=== PATIENT | male | born 1965 | race Caucasian/White ===

== ENCOUNTER 2022-11-29 17:50 | Inpatient (IN) | payer OTHER, SELFPAY ==
--- OUTSIDE RECORDS SUMMARY | 2022-11-29 18:01 | XMS REPORT | Continuity of Care Document ---
:1965 Author Organization [facility] t Address [address] [place] [address] [place] [id number] Care Team Providers Name Role Phone Val Ji Attending Clinician Cj Snow Attending Clinician [phone] Chayito Vega Attending Clinician Ivanna Silver Attending Clinician Nakul Schulte Attending Clinician Berhane Deleon Attending Clinician Katie Oh Admitting Clinician Cj Snow Admitting Clinician [phone] Vito Amos II Admitting Clinician Ivanna Silver Admitting Clinician Nakul Schulte Admitting Clinician Problems Condition Condition Condition Status Onset Resolution Last Treating Co mments Source Name Details Category Date Date Treatment Clinician Date FALL, FALL, Diagnosis Active 2019-11-21 Mi moria HEAD/NECK HEAD/NECK 11-13 11:18:00 l PAIN PAIN 00:00: Yony Active 11/14/2019 [facility] HYPERTENSI HYPERTENS Diagnosis Active 2019-11-10 Memoria ON, CHEST ION, CHEST 11-07 08:39:00 l PAIN PAIN 00:00: Yony Active 11/08/2019 [facility] CHEST PAIN CHEST Diagnosis Active 2019-11-08 Memoria PAIN 11-07 23:01:00 l Active 00:00: [place] 11/08/[address] [place] [address],[facility], [facility] HBP/CHEST HBP/CHEST Diagnosis Active 2019-10-18 Memoria PAIN PAIN 8-15 22:46:00 l Active 00:00: [place] 10/18/2019 [facility] UNSTABLE UNSTABLE Diagnosis Active 2019-10-20 Memoria ANGINA ANGINA 8-15 18:03:00 l Active 00:00: Yony 10/18/2019 [facility] CP CP Active Diagnosis Active 2019-04-14 Memoria 04/11/2019 2- 13:28:00 l 00:00: [place] 00 PULMONARY PULMONARY Diagnosis Active [id number] Memoria EMBOLISM EMBOLISM 0- 01:36:00 l Active 00:00: [place] 12/24/2015 [facility] PULMONARY PULMONARY Diagnosis Active [id number] Memoria EMBOLI EMBOLI 0- 13:40:00 l Active 00:00: [place] 12/24/2015 00 [facility] BLOOD BLOOD Diagnosis Active 2015-12-03 Mem oria CLOTS CLOTS 12-02 21:35:00 l Active 00:00: [place] 12/03/2015 [facility] CHEST CHEST Diagnosis Active 2013-11-10 Mem oria PAIN/ PAIN/ 11-10 21:06:00 l DIZZINESS DIZZINESS 17:00: Herm yolanda Active 00 11/10/2013 [facility] L KNEE L KNEE Diagnosis Active 2017-04-01 Me moria PAIN PAIN 4-18 15:13:00 l Active 07:00: [place] 06/20/2001 [facility] FEVER FEVER Diagnosis Active 2017-04-01 Mem oria CHILLS CHILLS 8- 15:13:00 l Active 00:00: [place] 10/21/2000 00 [facility] Angioplast Angioplas Problem Resolve 2019-11-12 Memoria y of blood ty of d 21:17:27 l vessel blood Yony (procedure vessel ) (procedure ) Resolved Problem 11/12/2019 [facility], [facility], [facility] Deep Deep Problem Resolve 2019-11-12 Bryan bri venous venous d 21:17:27 l thrombosis thrombosis He yolanda (disorder) (disorder) Resolved Problem 11/12/2019 [facility], [facility] Hypertensi Hypertens Problem Resolve 2019-11-12 Memoria ve hillary d 21:17:27 l disorder, disorder, Herm yolanda systemic systemic arterial arterial (disorder) (disorder) Resolved Problem 11/12/2019 [facility], [facility], [facility] Pulmonary Pulmonary Problem Resolve 2019-11-12 Memoria embolism embolism d 21:17:27 l (disorder) (disorder) He rmann Resolved Problem 11/12/2019 [facility], [facility] Pneumonia Pneumonia Problem Resolve 2019-11-12 Memoria (disorder) (disorder) d 21:17:27 l Resolved [place] Problem 11/12/2019 [facility], [facility], [facility] 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 21:17:27 l erosis erosis [place] (disorder) (disorder) Active Problem 11/12/2019 [facility] Diabetes Diabetes Problem Active 2019-11-12 Memoria mellitus mellitus 21:17:27 l (disorder) (disorder) He rmann Active Problem 11/12/2019 [facility] Factor V Factor V Problem Active 2019-11-12 Memoria Leiden Leiden 21:17:27 l mutation mutation Jorge A n (disorder) (disorder) Active Problem 11/12/2019 [facility] History of History Problem Active 2019-11-12 Memoria - Deep of - Deep 21:17:27 l Vein Vein [place] Thrombosis Thrombosis (context-d (context-d ependent ependent category) category) Active Problem 11/12/2019 [facility] History of History Problem Active 2019-11-12 Memoria - of - 21:17:27 l pulmonary pulmonary Herm yolanda embolus embolus (context-d (context-d ependent ependent category) category) Active Problem 11/12/2019 [facility] History of History Problem Active 2019-11-12 Memoria insertion of 21:17:27 l of insertion Yony inferior of vena caval inferior filter vena caval (situation filter ) (situation ) Active Problem 11/12/2019 [facility] History of History Problem Active 2019-11-12 Memoria - of - 21:17:27 l myocardial myocardial He rmann infarction infarction (context-d (context-d ependent ependent category) category) Active Problem 11/12/2019 [facility] Morbid Morbid Problem Active 2019-11-12 Bryan bri obesity obesity 21:17:27 l (disorder) (disorder) He rmann Active Problem 11/12/2019 [facility] Diabetes Diabetes Problem Active 2019-11-12 Memoria mellitus mellitus 21:17:27 l type 2 type 2 Yony (disorder) (disorder) Active Problem 11/12/2019 [facility] ESSENTIAL ESSENTIAL Diagnosis Active 2019-11-10 Memoria (PRIMARY) (PRIMARY) 08:39:00 l HYPERTENSI HYPERTENSI He rmann ON ON Active [facility] CHEST CHEST Diagnosis Active 2019-11-10 Mem oria PAIN, PAIN, 08:39:00 l UNSPECIFIE UNSPECIFIE He rmann D D Active [facility], [facility] CHRONIC CHRONIC Diagnosis Active 2015-12-28 Memoria PULMONARY PULMONARY 13:40:00 l EMBOLISM EMBOLISM Jorge A n Active [facility] Allergies, Adverse Reactions, Alerts Allergy Allergy Status Severity Reaction(s) Onset Inactive Treating Comm ents Source Name Type Date Date Clinician No Known No Known Active Memori a Medicati Medicati l on on Yony Allergsasha Allergsasha s s Social History Social Habit Start Date Stop Date Quantity Comments Source Social History 2015-12-04 2015-12-04 [facility] ermann 04:36:12 04:36:12 Smoking Status Start Date Stop Date Source Social History [facility] Medications Ordered Filled Start Stop Current Ordering Indication Dosage Frequency Signature Comments Components Source Medication Medication Date Date Medication? Clinician (SIG) Name Name atorvastati No Notes: Bryan bri n 11-09 (Same As: l 02:00: Lipitor) Yony Melatonin 3 No Notes: Bryan bri MG Extended 11-09 (Same as: l Release 00:54: Melatonin) Herm yolanda Tablet 00 Saline No Notes: Memoria Flush 0.9% 11-08 (Same as: l 14:00: BD [place] Posiflush) Pradaxa No Notes: DO Memor ia 11-08 NOT break, l 14:00: chew or Yony open capsules for administra tion. Losartan No Notes: Memoria 11-08 (Same as: l 14:00: Cozaar) Yony 00 metoprolol No Notes: Memor ia tartrate 11-08 (Same as: l 14:00: Lopressor) Yony Morphine 2020-0 No Notes: Memoria 11-08 (Same l 05:23: as:MORPhin e Sulfate) Dextrose No 12.5 gm, Memor ia 50% Syringe 11-08 25 mL, l (D50W) 05:01: Route: [place] 00 IVP, Drug Form: INJ, Dosing Weight 136.364, kg, PRN, PRN Blood Glucose Results, Start date: 11/09/19 0:01:00 CDT, Duration: 30 day, Stop date: 12/09/19 0:00:00 CDT, 0 Glucagon 2020-0 No 1 mg, Memoria 11-08 Route: IM, l 05:01: Drug form: PDR/INJ, PRN, Dosing Weight 136.364, kg, PRN Blood Glucose Results, Start date: 11/09/19 0:01:00 CDT, Duration: 30 day, Stop date: 12/09/19 0:00:00 CDT, 0 Insulin 2019-0 No Notes: Memoria Lispro 11-08 (Same as: l 05:01: Humalog) Roll in palms of hands gently; Do not shake vigorously . WASTE: F/P - Black; E - Municipal Trash Bin Stable for 28 days at room temperatur e. Expires in days from ____Date Enoxaparin 0 No 40 mg, Memor ia 11-08 Route: l 05:00: SUB-Q, Drug form: INJ, [id number], Dosing Weight 136.364, kg, Start date: 11/09/19 0:00:00 CDT, Duration: 30 day, Stop date: 12/08/19 0:00:00 CDT Nitroglycer 2019-0 No Notes: Bryan bri in 11-08 (Same l 04:56: as:Nitroqu ick, Nitrostat) "Do Not Crush" Sublingual tablet Acetaminoph No Notes: Bryan bri en 325 MG / 11-08 (Same as: l Hydrocodone 04:56: [place] Ginette nn Bitartrate 00 325/5) Do 5 MG Oral not exceed Tablet 4gm/day of acetaminop hen. Acetaminoph No Notes: Do M emoria en 11-08 not exceed l 04:56: 4 gm/day. Yony 00 (Same as: Tylenol) Ondansetron No Notes: Bryan bri 11-08 (Same as: l 04:56: Zofran) Saline No Notes: Memoria Flush 0.9% 11-08 (Same as: l 04:56: BD [place] Posiflush) 24 HR No Notes: Memoria Nitroglycer 11-08 Apply only l in 0.2 04:20: once for Yony MG/HR 00 up to 12 Transdermal hours in a Patch 24 hour period (12 hours on and 12 hours off.) (Same as:Nitro-D ur,Deponit ,Transderm Nitro) For topical use only. "Remove old patch before applicatio n of new patch" Fentanyl No Notes: Memoria 11-08 (Same as: l 01:07: Sublimaze) Preservati ve free. Aspirin No 325 mg, Memoria 11-08 Route: PO, l 00:31: Drug form: 00 TAB, ONCE, Dosing Weight 136.364, kg, Priority: STAT, Start date: 11/08/19 19:31:00 CDT, Stop date: 11/08/19 19:31:00 CDT Morphine No Notes: Memoria 11-08 (Same l 00:31: as:MORPhin Yony 00 e Sulfate) Ondansetron No Notes: Bryan bri 11-08 (Same as: l 00:31: Zofran) MEDICATION WASTE Product Size: 4 mg Product Wasted: ___ mg Saline No Notes: Memoria Flush 0.9% 11-07 (Same as: l 23:46: BD [place] 00 Posiflush) Aspirin No Notes: Memoria 11-07 Take with l 23:46: food. aspirin 0 No Notes: Memoria 10-19 Take with l 14:00: food. atorvastati No Notes: Bryan bri n 10-19 (Same As: l 02:00: Lipitor) Nitroglycer No Notes: Bryan bri in 10-18 (Same l 16:01: as:Tridil) Final conc = 0.4 mg/ml. Premix bottle. Hydralazine No Notes: Bryan bri 10-18 (Same as: l 15:01: Apresoline ) May interfere w/enteral feedings Take With Food Nicardipine No Notes: Bryan bri 10-18 Same as: l 15:01: Cardene Concentrat ion: (0.2 mg /1 ml ) Amlodipine No Notes: Memor ia 10-18 (Same as: l 14:58: Norvasc) Aspirin No Notes: Do Memor ia 10-18 not crush l 14:00: or chew. (Same As: Ecotrin) Pradaxa No Notes: DO Memor ia 10-18 NOT break, l 14:00: chew or open capsules for administra tion. Morphine No 1 mg, Memoria 10-18 Route: l 10:03: IVP, ONCE, Dosing Weight 144.6, kg, Priority: STAT, Start date: 10/19/19 5:03:00 CDT, Stop date: 10/19/19 5:03:00 CDT Potassium No Notes: Memori a Chloride 10-18 (Same as: l 08:18: K-Dur 20) "Do Not Crush" Give with food and full glass of water For patients unable to swallow tablet, dissolve in one half glass of water. Allow about 2 minutes for the tablets to disintegra te. Stir before giving to prepare slurry and administer . Please exclude Patient s with feeding tube less than 14 Serbian (Dobhoff, J-tube etc) and pediatric and patients. potassium No Notes: Memori a phosphate-s 10-18 (Same as: l odium 08:18: Phos-NaK) Each 1.5 250 mg-280 gm pkt has mg-160 mg 250mg oral powder phosphorou for s. Mix reconstitut w/2.5oz ion water and stir. potassium No Notes: Memori a phosphate 10-18 (Same as: l 08:18: K Phosphate. ) Do not infuse phosphorou s concurrent ly in the same line as TPN or IVF that contains calcium. For double lumen central lines, phosphorou s may be infused in a separate lumen from TPN. 1 mMol phoshate has 1.47 mEq potassium Infuse over 4 hours sodium 2020-0 No Notes: Memoria phosphate -16 Infuse l 08:18: over 4 00 hour. Do not infuse phosphorou s concurrent ly in the same line as TPN or IVF that contains calcium. For double lumen central lines, phosphorou s may be infused in a separate lumen from TPN. Magnesium 2020-0 No Notes: Memori a Sulfate 10-18 WASTE: F/P l 08:18: - Sink; E - Municipal Trash Bin Magnesium 2020-0 No Notes: Memori a Oxide 10-18 (Same as: l 08:18: Mag-Ox 400) Magnesium oxide 437dz=112i g elemental magnesium Dose=____m g magnesium oxide (___mg elemental magnesium) Calcium 2020-0 No Notes: Memoria Gluconate 10-18 WASTE: F/P l 08:18: - Sink; E - Municipal Trash Bin Dextrose 2019-0 No 12.5 gm, Memor ia 50% Syringe 10-18 25 mL, l (D50W) 08:18: Route: IVP, Drug Form: INJ, Dosing Weight 144.6, kg, PRN, PRN Blood Glucose Results, Start date: 10/19/19 3:18:00 CDT, Duration: 30 day, Stop date: 11/18/19 3:17:00 CDT, 0 Glucagon 2020-0 No 1 mg, Memoria 10-18 Route: IM, l 08:18: Drug form: PDR/INJ, PRN, Dosing Weight 144.6, kg, PRN Blood Glucose Results, Start date: 10/19/19 3:18:00 CDT, Duration: 30 day, Stop date: 11/18/19 3:17:00 CDT, 0 Bisacodyl 2020-0 No Notes: Memori a - (Same As: l 08:18: Dulcolax, Bisco-Lax) Ondansetron 0 No Notes: Bryan bri 10-18 (Same as: l 08:18: Zofran) MEDICATION WASTE Product Size: 4 mg Product Wasted: ___ mg Melatonin No Notes: Memori a 10-18 (Same as: l 08:18: Melatonin) [place] 00 Acetaminoph No Notes: Do M emoria en 10-18 not exceed l 08:18: 4 gm/day. [place] 00 (Same as: Tylenol) Nitroglycer No Notes: Bryan bri in 10-18 (Same l 08:17: as:Nitroqu ick, Nitrostat) "Do Not Crush" Sublingual tablet Tramadol No Notes: Not Mem oria 10-18 to exceed l 08:17: 400mg/day. (Same As: Ultram) Morphine 0 No 2 mg, 1 Memori a 10-18 mL, Route: l 08:17: IVP, Drug form: SOLN, Q4H, Dosing Weight 144.6, kg, PRN Pain Score 7-10, Start date: 10/19/19 3:17:00 CDT, Duration: 5 day, Stop date: 10/24/19 3:16:00 CDT, 0 Acetaminoph No Notes: Do M emoria en 325 MG / 10-18 not exceed l Hydrocodone 08:12: 4gm/day of Yony Bitartrate 00 acetaminop 10 MG Oral hen. (Same Tablet as: [place] [[place] 325/10) 10/325] Aspirin 0 No Notes: Memoria 10-18 Take with l 07:33: food. Nitroglycer No Notes: Bryan bri in 10-18 (Same l 07:33: as:Tridil) Final conc = 0.4 mg/ml. Premix bottle. Zofran 0 No 4 mg, Memoria 10-18 Route: l 06:49: IVP, Drug form: INJ, ONCE, Dosing Weight 144.6, kg, Priority: STAT, Start date: 10/19/19 1:49:00 CDT, Stop date: 10/19/19 1:49:00 CDT Morphine 2019-0 No 4 mg, Memoria 8-16 Route: l 06:48: IVP, ONCE, Dosing Weight 144.6, kg, Priority: STAT, Start date: 10/19/19 1:48:00 CDT, Stop date: 10/19/19 1:48:00 CDT Losartan 2019-0 No Notes: Memoria 2-08 (Same as: l 15:00: Cozaar) Aspirin 325 No Notes: (Do Memoria MG Enteric 208 Not Crush) l Coated 15:00: Do not Yony Tablet 00 crush or chew. Gas-X Ultra No Notes: Bryan bri Softgels 08 (Same as: l 15:00: Mylicon) Saline No Notes: Memoria Flush 0.9% 208 (Same as: l 15:00: BD [place] 00 Posiflush) metoprolol No Notes: Memor ia tartrate 08 (Same as: l 15:00: Lopressor) Clonidine No Notes: Memori a Hydrochlori 08 (Same As: l de 0.1 MG 14:11: Catapres) Her thomson Oral Tablet metoprolol Yes 25 mg = 1 Me moria tartrate 25 2-08 tab, PO, l mg oral 10:00: BID Yony tablet dabigatran 0 Yes 150 mg = 1 M emoria etexilate 2-08 cap, PO, l 150 MG Oral 10:00: BID Jorge A n Capsule 00 [Pradaxa] Metformin 0 Yes 500 mg, Memor ia 2-08 PO, Daily l 10:00: atorvastati Yes 10 mg = 1 M emoria n 10 mg 2-08 tab, PO, l oral tablet 10:00: Bedtime Her thomson 00 Nitroglycer No Notes: Bryan bri in 208 (Same l 08:23: as:Nitroqu ick, Nitrostat) "Do Not Crush" Sublingual tablet Acetaminoph No Notes: Do M emoria en 208 not exceed l 08:23: 4 gm/day. [place] 00 (Same as: Tylenol) Docusate 2019-0 No Notes: Memoria Sodium 100 2-08 (Same as: l MG Oral 08:23: Colace) [place] Capsule 00 (Do Not [Colace] Crush) Acetaminoph 2019-0 No Notes: Bryan bri en 325 MG / 2-08 Same as l Hydrocodone 08:23: [place] Ginette nn Bitartrate 00 325-7.5mg 7.5 MG Oral Do not Tablet exceed [[place] 4gm/day of 7.5/325] acetaminop hen. Morphine 2019-0 No Notes: Memoria 2-08 (Same l 08:23: as:MORPhin Yony e Sulfate) Zofran No Notes: Memoria 2-08 (Same as: l 08:23: Zofran) Yony 00 MEDICATION WASTE Product Size: 4 mg Product Wasted: ___ mg Acetaminoph 2019- No Notes: Do M emoria en 300 MG / 2-08 not exceed l Codeine 08:23: 4gm/day of Herm yolanda Phosphate 00 acetaminop 30 MG Oral hen. (Same Tablet as: [Tylenol Tylenol with with Codeine #3] Codeine # 3) Restoril 2019-0 No Notes: Memoria 2-08 (Same As: l 08:23: Restoril) [facility] 3:Reproduc tive risk Hazardous Drug -- Refer to safe handling procedure PPE Matrix Labetalol 2019-0 No Notes: Memori a 2-08 (Same as: l 08:23: Normodyne, [place] Trandate) Push over 2 minutes Give bolus over 2-3 minutes. Hydralazine 2019-0 No Notes: Bryan bri 2-08 (Same as: l 08:23: Apresoline [place] 00 ) Push over 5 minutes Saline 2019-0 No Notes: Memoria Flush 0.9% 2-08 (Same as: l 08:23: BD Yony Posiflush) Morphine 2019-0 No Notes: Memoria 2-08 (Same l 08:22: as:MORPhin [place] e Sulfate) Zofran 2019-0 No Notes: Memoria 2-08 (Same as: l 08:22: Zofran) [place] MEDICATION WASTE Product Size: 4 mg Product Wasted: ___ mg Protonix No Notes: Memoria 2-08 Tablet l 08:19: should not be chewed or crushed. (Same as: Protonix) Aspirin No Notes: Memoria 2-08 Take with l 07:13: food. Morphine No 4 mg, Memoria 2-08 Route: l 06:22: IVP, ONCE, Dosing Weight 140.682, kg, Priority: STAT, Start date: 04/12/19 0:22:00 PRODUCT EXPERT, Stop date: 04/12/19 0:22:00 PRODUCT EXPERT Omnipaque No Notes: Memori a 300 - (Same l injectable 06:21: as:Omnipaq H ermann solution ue 300). WASTE: F/P - Black; E - Municipal Trash Bin Morphine No Notes: Memoria 2-08 (Same l 04:48: as:MORPhin [place] 00 e Sulfate) Acetaminoph 2015-03 Yes 1 tab, PO, Memoria en 325 MG / 0-28 Q6H, PRN l Hydrocodone 16:02: Pain Score Yony Bitartrate 00 7-10, # 20 10 MG Oral tab, 0 Tablet Refill(s), [[place] given to ] patient ferrous 2015-03 Yes 325 mg = 1 Bryan bri sulfate 325 0-28 tab, PO, l mg oral 14:58: BID-Meals, Herm yolanda enteric 00 # 60 tab, coated 0 tablet Refill(s) Famotidine 2015-03 Yes 40 mg = 2 Me moria 20 MG Oral 0-28 tab, PO, l Tablet 14:58: Bedtime, # Ginette nn 00 60 tab, 0 Refill(s) losartan 25 2015-03 Yes 25 mg = 1 M emoria mg oral 0-28 tab, PO, l tablet 14:58: Daily, # Yony 00 30 tab, 0 Refill(s) Warfarin 2015-03 Yes 7.5 mg = 1 Mem oria Sodium 7.5 0-28 tab, PO, l MG Oral 14:12: Daily, # Jorge A n Tablet 00 10 tab, 0 [Coumadin] Refill(s) Coumadin 2015-03 No Notes: Memoria 0-27 Nurse to l 22:00: ensure [place] 00 documentat ion of patient education per anticoagul ation policy. Avoid large intake of vitamin-K containing foods diet. (Same As: Coumadin) WASTE: F/P - P Waste Black; E - P Waste Black Coumadin 2015-03 No Notes: Memoria 0-26 Nurse to l 16:06: ensure [place] 00 documentat ion of patient education per anticoagul ation policy. Avoid large intake of vitamin-K containing foods diet. (Same As: Coumadin) WASTE: F/P - P Waste Black; E - P Waste Black Coumadin 2015-03 No Notes: Memoria 0-25 Nurse to l 19:16: ensure Yony 00 documentat ion of patient education per anticoagul ation policy. Avoid large intake of vitamin-K containing foods diet. (Same As: Coumadin) WASTE: F/P - P Waste Black; E - P Waste Black Coumadin 2015-03 No Notes: Memoria 0-24 Nurse to l 22:00: ensure Yony 00 documentat ion of patient education per anticoagul ation policy. Avoid large intake of vitamin-K containing foods diet. (Same As: Coumadin) WASTE: F/P - P Waste Black; E - P Waste Black ferrous 2015-03 No Notes: Memoria sulfate 0-24 Give with l 22:00: food. "Do 00 Not Crush" Dilaudid 2015-03 No 1 mg, 1 Memori a 0-24 mL, Route: l 16:07: IV, Drug form: INJ, Q3H, Dosing Weight 139.4, kg, PRN Pain Score 7-10, Start date: 12/27/15 11:07:00 CDT, Duration: 30 day, Stop date: 01/26/16 11:06:00 PRODUCT EXPERT Acetaminoph 2015-03 No Notes: Do M emoria en 325 MG / 0-24 not exceed l Hydrocodone 16:07: 4gm/day of Yony Bitartrate 00 acetaminop 10 MG Oral hen. (Same Tablet as: [place] [[place] 325/10) 10] Coumadin 2015-03 No Notes: Memoria 0-23 Nurse to l 22:00: ensure [place] 00 documentat ion of patient education per anticoagul ation policy. Avoid large intake of vitamin-K containing foods diet. WASTE: F/P - P Waste Black; E - P Waste Black (Same As: Coumadin) Miralax 2015-03 No Notes: Memoria 0-23 Dissolve l 22:00: in 8 oz of [place] water or juice. (Same as: Miralax) Dilaudid 2015-03 No 1 mg, 1 Memori a 0-23 mL, Route: l 18:33: IVP, Drug Yony 00 form: INJ, Q4H, Dosing Weight 139.4, kg, PRN Pain Score 7-10, Start date: 12/26/15 13:33:00 CDT, Duration: 30 day, Stop date: 01/25/16 13:32:00 PRODUCT EXPERT Losartan 2015-03 No Notes: Memoria 0-23 (Same as: l 14:00: Cozaar) Yony 00 Famotidine 2015-03 No Notes: Memor ia 0-23 (Same as: l 02:00: Pepcid) [place] Aspirin 81 2015-03 No Notes: Do Me moria MG Enteric 0-22 not crush l Coated 23:12: or chew. Yony Tablet (Same As: Ecotrin) Warfarin 2015-03 No Notes: Memoria 0-22 Nurse to l 22:00: ensure Yony 00 documentat ion of patient education per anticoagul ation policy. Avoid large intake of vitamin-K containing foods diet. WASTE: F/P - P Waste Black; E - P Waste Black (Same As: Coumadin) Docusate 2015-03 No Notes: Memoria Sodium 100 0-22 (Same as: l MG Oral 18:48: Colace) [place] Capsule (Do Not [Colace] Crush) Tylenol 2015-03 No Notes: Do Memor ia 0-22 not exceed l 18:48: 4 gm/day. [place] 00 (Same as: Tylenol) Dilaudid 2015-03 No 1.5 mg, Memori a 0-22 1.5 mL, l 18:07: Route: Yony 00 IVP, Drug form: INJ, Q3H, Dosing Weight 136.364, kg, PRN Pain Score 7-10, Start date: 12/25/15 13:07:00 CDT, Duration: 30 day, Stop date: 01/24/16 13:06:00 PRODUCT EXPERT Ondansetron 2015-03 No Notes: Bryan bri 0-22 (Same as: l 08:44: Zofran) [place] 00 MEDICATION WASTE Product Size: 4 mg Product Wasted: ___ mg Morphine 2015-03 No 4 mg, Memoria 0-22 Route: l 08:44: IVP, Q4H, [place] 00 Dosing Weight 136.364, kg, PRN Pain Score 7-10, Start date: 12/25/15 3:44:00 CDT, Duration: 30 day, Stop date: 01/24/16 3:43:00 PRODUCT EXPERT Acetaminoph 2015-03 No Notes: Bryan bri en 325 MG / 0-22 (Same as: l Hydrocodone 08:44: [place] Ginette nn Bitartrate 00 325/5) Do 5 MG Oral not exceed Tablet 4gm/day of acetaminop hen. Heparin 40 2015-03 No Route: Memor ia unit/kg 0-22 IVP, PRN, l Bolus 08:44: 4,400 [place] (Heparin 00 unit, 4.4 Dosing mL, Drug Weight) form: INJ, PRN, Heparin Protocol, Start date: 12/25/15 3:44:00 CDT Stop date: 01/24/16 2:43:00 PRODUCT EXPERT, 30 day heparin 2015-03 No 500 mL, Memoria additive 0-22 Rate: l 25,000 unit 08:44: 39.82 Ginette nn [18 00 ml/hr, unit/kg/hr] Infuse + Premix over: 12.6 Diluent hr, Route: Dextrose 5% IV, Dosing 500 mL Weight 110.6 kg, Total Volume: 500 mL, Start date: 12/25/15 3:44:00 CDT, Duration: 30 day, Stop date: 01/24/16 3:43:00 PRODUCT EXPERT Heparin - 2015-03 No 8,800 Memoria one time 0-22 unit, 8.8 l bolus for 08:44: mL, Route: He rmann DVT/PE 00 IVP, Drug form: INJ, ONCE, Dosing Weight 139.4, kg, Priority: STAT, Start date: 12/25/15 3:44:00 CDT, Stop date: 12/25/15 3:44:00 CDT Heparin 80 2015-03 No Route: Memor ia unit/kg 0-22 IVP, PRN, l Bolus 08:44: 8,800 Yony (Heparin 00 unit, 8.8 Dosing mL, Drug Weight) form: INJ, PRN, Heparin Protocol, Start date: 12/25/15 3:44:00 CDT Stop date: 01/24/16 2:43:00 PRODUCT EXPERT, 30 day Dilaudid 2015-03 No 1 mg, 1 Memori a 0-22 mL, Route: l 07:18: IVP, Drug [place] 00 form: INJ, Q3H, Dosing Weight 136.364, kg, PRN Pain Score 7-10, Start date: 12/25/15 2:18:00 CDT, Duration: 30 day, Stop date: 01/24/16 2:17:00 PRODUCT EXPERT Dilaudid 2015-03 No 2 mg, Memoria 0-22 Route: l 07:17: IVP, ONCE, Yony 00 Dosing Weight 136.364, kg, Priority: STAT, Start date: 12/25/15 2:17:00 CDT, Stop date: 12/25/15 2:17:00 CDT Hydromorpho 2015-03 No 0.5 mg, Mem oria ne 0-22 0.5 mL, l 06:59: Route: Yony 00 IVP, Drug form: INJ, ONCE, Dosing Weight 136.364, kg, Priority: STAT, Start date: 12/25/15 1:59:00 CDT, Stop date: 12/25/15 1:59:00 CDT Ondansetron 2015-03 No Notes: Bryan bri 0-22 (Same as: l 06:44: Zofran) Yony 00 MEDICATION WASTE Product Size: 4 mg Product Wasted: ___ mg Morphine 2015-03 No Notes: Memoria 0-22 (Same l 06:44: as:MORPhin Yony 00 e Sulfate) Acetaminoph 2015-03 No Notes: Bryan bri en 325 MG / 0-22 (Same as: l Hydrocodone 06:44: [place] Ginette nn Bitartrate 00 325/5) Do 5 MG Oral not exceed Tablet 4gm/day of acetaminop hen. Zofran 2015-03 No 4 mg, Memoria 0-22 Route: l 05:26: IVP, Drug Yony 00 form: INJ, ONCE, Dosing Weight 136.364, kg, Priority: STAT, Start date: 12/25/15 0:26:00 CDT, Stop date: 12/25/15 0:26:00 CDT Morphine 2015-03 No 4 mg, Memoria 0-22 Route: l 05:26: IVP, ONCE, Yony Dosing Weight 136.364, kg, Priority: STAT, Start date: 12/25/15 0:26:00 CDT, Stop date: 12/25/15 0:26:00 CDT Morphine 2015-03 No 4 mg, Memoria 0-22 Route: l 04:09: IVP, ONCE, [place] Dosing Weight 136.364, kg, Priority: STAT, Start date: 12/24/15 23:09:00 CDT, Stop date: 12/24/15 23:09:00 CDT Morphine 2015-03 No 4 mg, Memoria 0-22 Route: l 04:04: IVP, ONCE, Yony 00 Dosing Weight 136.364, kg, Priority: STAT, Start date: 12/24/15 23:04:00 CDT, Stop date: 12/24/15 23:04:00 CDT Zofran 2015-03 No 4 mg, Memoria 0-22 Route: l 03:30: IVP, Drug Yony 00 form: INJ, ONCE, Dosing Weight 136.364, kg, Priority: STAT, Start date: 12/24/15 22:30:00 CDT, Stop date: 12/24/15 22:30:00 CDT Morphine 2015-03 No Notes: [facility]oria 0-22 (Same l 03:11: as:MORPhin [place] 00 e Sulfate) Saline 2015-03 No Notes: [facility] Flush 0.9% 0-22 (Same as: l 00:42: BD [place] 00 Posiflush) Xarelto 2015-03 No Notes: [facility]oria 0-01 (Same as: l 22:00: Xarelto) [place] 00 Administer with food 24 HR 2015-03 No Notes: [facility]oria Metoprolol 0-01 (Same as: l Tartrate 50 14:00: Toprol XL) Yony MG Extended July split Release tab, but Tablet do not [Toprol] crush. Aspirin 2015-03 No Notes: Do Memor ia 0- not crush l 14:00: or chew. Yony 00 (Same As: Ecotrin) Acetaminoph 2015-03 Yes 500 mg = 1 Memoria en 500 MG 0-01 tab, PO, l Oral Tablet 12:37: Q6H, PRN He rmann [Tylenol] 00 Pain, X 30 day, # 120 tab, 0 Refill(s) meloxicam 2015-03 Yes 15 mg = 1 Mem oria 15 mg oral 0-01 tab, PO, l tablet 12:37: Daily, # [place] 00 30 tab, 0 Refill(s) rivaroxaban 2015-03 Yes 20 mg = 1 M emoria 20 MG Oral 0-01 tab, PO, l Tablet 12:37: QPM, # 30 Jorge A n [Xarelto] 00 tab, 3 Refill(s) metoprolol 2015-03 Yes 25 mg = 1 Me moria tartrate 25 0-01 tab, PO, l mg oral 12:37: BID, # 60 Gin[place] nn tablet 00 tab, 3 Refill(s) Aspirin 81 2015-03 Yes 81 mg, PO, M emoria MG Enteric 0-01 Daily, # l Coated 12:37: 100 tab, 3 [place] nn Tablet 00 Refill(s) Zofran 2015-03 No Notes: [facility]oria 0-01 (Same as: l 11:19: Zofran) Yony 00 MEDICATION WASTE Product Size: 4 mg Product Wasted: ___ mg Zofran 2015-03 No Notes: [facility]oria 0-01 (Same as: l 10:21: Zofran) [place] 00 MEDICATION WASTE Product Size: 4 mg Product Wasted: ___ mg Morphine 2015-03 No Notes: [facility]oria 0-01 (Same l 05:44: as:MORPhin Yony 00 e Sulfate) metoprolol 2015-03 No 25 mg = 1 Me moria tartrate 25 0-01 tab, PO, l mg oral 04:31: BID, 0 Yony tablet 00 Refill(s) rivaroxaban 2015-03 No 20 mg = 1 M emoria 20 MG Oral 0-01 tab, PO, l Tablet 04:31: QPM, # 30 Jorge A n [Xarelto] 00 tab, 3 Refill(s) Aspirin 325 2015-03 No 325 mg = 1 Memoria MG Oral 0-01 tab, PO, l Tablet 04:31: Daily, 0 Yony 00 Refill(s) Morphine 2015-03 No Notes: [facility]oria 0-01 (Same l 03:56: as:MORPhin Yony 00 e Sulfate) Nitroglycer 2015-03 No Notes: Bryan bri in 0.4 MG 0-01 (Same l Sublingual 03:53: as:Nitroqu H ermann Tablet 00 ick, Nitrostat) "Do Not Crush" Sublingual tablet metoprolol 2015-03 No Notes: Memor ia extended 0- (Same as: l release 03:53: Toprol XL) Herm yolanda 00 May split tab, but do not crush. Aspirin 81 2015-03 No Notes: Do Me moria MG Enteric 0- not crush l Coated 03:52: or chew. Yony Tablet 00 (Same As: Ecotrin) Morphine 2015-03 No Notes: Memoria 0-01 (Same l 01:46: as:MORPhin Yony 00 e Sulfate) Ondansetron 2015-03 No 4 mg, Memor ia 0- Route: l 01:46: IVP, ONCE, Yony 00 Dosing Weight 136.364, kg, Priority: STAT, Start date: 12/03/15 20:46:00 CDT, Stop date: 12/03/15 20:46:00 CDT Saline 2015-03 No Notes: [facility]oria Flush 0.9% 0- (Same as: l 01:46: BD [place] 00 Posiflush) metoprolol No Notes: Memor ia tartrate 11-11 (Same as: l 14:00: Lopressor) [place] 00 Saline No Notes: [facility]oria Flush 0.9% 11-11 (Same as: l 14:00: BD [place] 00 Posiflush) Aspirin 81 No Notes: Do Me moria MG Enteric 11-11 not crush l Coated 14:00: or chew. Yony Tablet 00 (Same As: Ecotrin) Protonix No Notes: Memoria - Tablet l 12:30: should not [place] 00 be chewed or crushed. (Same as: Protonix) Diphenhydra No 25 mg, 1 Me moria mine 11-11 tab, l 02:35: Route: PO, Drug form: TAB, Q6H, Dosing Weight 136.364, kg, PRN Itching, Start date: 11/10/13 21:35:00, Duration: 30 day, Stop date: 12/10/13 21:34:00 Alprazolam No Notes: Memor ia 11-11 With food l 02:35: or milk (Same as: Xanax) Temazepam No Notes: Memori a 11-11 (Same As: l 02:35: Restoril) Acetaminoph No Notes: Bryan bri en 325 MG / 11-11 (Same as: l Hydrocodone 02:35: [place] Ginette nn Bitartrate 00 325/5) Do 5 MG Oral not exceed Tablet 4gm/day of acetaminop hen. Acetaminoph No Notes: Do M emoria en 11-11 not exceed l 02:35: 4 gm/day. [place] 00 (Same as: Tylenol) Ondansetron No Notes: Bryan bri 11-11 (Same as: l 02:35: Zofran) [place] 00 Acetaminoph No Notes: Do M emoria en 325 MG / 11-11 not exceed l Hydrocodone 02:35: 4gm/day of Yony Bitartrate 00 acetaminop 10 MG Oral hen. (Same Tablet as: [place] 325/10) Dextrometho No Notes: Bryan bri rphan 11-11 (dextromet l Hydrobromid 02:35: horphan-gu Yony e 2 MG/ML / 00 aifenesin Guaifenesin 10-100/5 20 MG/ML ml LIQ) Oral (Same as: Solution Robitussin -DM) Hydralazine No Notes: Bryan bri 11-11 (Same as: l 02:35: Apresoline ) Push over 5 minutes Zofran No Notes: Memoria 11-11 (Same as: l 02:35: Zofran) Yony 00 Saline No Notes: [facility]oria Flush 0.9% 11-11 (Same as: l 02:34: BD [place] 00 Posiflush) Morphine No Notes: Memoria 11-11 (Same l 02:34: as:MORPhin e Sulfate) Nitroglycer No Notes: Bryan bri in 11-11 (Same l 02:34: as:Nitroqu ick, Nitrostat) "Do Not Crush" Sublingual tablet aspirin Yes 81 mg, PO, Bryan bri 11-11 Daily l 02:19: [place] 00 Reglan No Notes: Memoria 11-11 (Same as: l 01:23: Reglan) Nitroglycer No 1 inch, Mem oria in 0.02 11-11 Route: l MG/MG 01:16: TOP, Drug [place] Topical Form: Ointment OINT, Dosing Weight 136.364, kg, ONCE, STAT, Start date: 11/10/13 20:16:00, Stop date: 11/10/13 20:16:00 Morphine No 4 mg, Memoria 11-11 Route: l 01:16: IVP, Drug form: INJ, ONCE, Dosing Weight 136.364, kg, Priority: STAT, Start date: 11/10/13 20:16:00, Stop date: 11/10/13 20:16:00 Sodium No 25 mL, [facility]oria Chloride 11-11 Route: IV, l 0.9% IV 00:54: Start date: 11/10/13 19:54:00, Duration: 30 day, Stop date: 12/10/13 19:53:00, PRN Line Flush BD Normal No Notes: Memori a Saline 11-11 (Same as: l Flush 00:53: BD [place] 00 Posiflush) Ondansetron No Notes: Bryan bri 11-11 (Same as: l 00:50: Zofran) Nitroglycer No 0.4 mg, 1 M emoria in 11-11 tab, l 00:50: Route: SL, [place] Drug form: TAB, Q5Min, Dosing Weight 136.364, kg, PRN Chest Pain, Start date: 11/10/13 19:50:00, Duration: 3 doses or times, Stop date: Limited # of times aspirin No Notes: Memoria 11-11 Take with l 00:50: food. [place] Saline No 10 mL, Memoria Flush 0.9% 11-11 Route: l 00:50: IVP, Drug [place] 00 Form: INJ, Dosing Weight 136.364, kg, PRN, PRN Line Flush, Start date: 11/10/13 19:50:00, Duration: 30 day, Stop date: 12/10/13 19:49:00 Immunizations Ordered Immunization Filled Immunization Date Status Commen ts Source Name Name [facility] COVID-19 [facility] COVID-19 2021-01-16 Completed Vaccine Vaccine 00:00:00 Vital Signs Vital Name Observation Time Observation Value Comments Source Temperature Oral (F) 2019-11-10 16:17:00 98.1 F [facility] [place] Heart Rate 2019-11-10 16:17:00 [facility] Respitory Rate 2019-11-10 16:17:00 [facility]ori al [facility]ony Systolic (mm Hg) 2019-11-10 16:17:00 Bryan rial Yony Diastolic (mm Hg) 2019-11-10 16:17:00 Mem orial [place] Temperature Oral (F) 2019-11-10 12:08:00 98.2 F [facility] Heart Rate 2019-11-10 12:08:00 [facility] Respitory Rate 2019-11-10 12:08:00 Memori al [place] Systolic (mm Hg) 2019-11-10 12:08:00 Byran rial Yony Diastolic (mm Hg) 2019-11-10 12:08:00 Mem o[facility] [place] Temperature Oral (F) 2019-11-10 09:00:00 98.0 F [facility] [place] Heart Rate 2019-11-10 09:00:00 [facility] Respitory Rate 2019-11-10 09:00:00 [facility] [place] Systolic (mm Hg) 2019-11-10 09:00:00 Bryan rial Yony Diastolic (mm Hg) 2019-11-10 09:00:00 Mem o[facility] [place] Height 2019-11-09 05:02:00 198.12 cm [facility] Weight 2019-11-09 05:02:00 [facility] [place] BMI Calculated 2019-11-09 05:02:00 [facility] [place] BMI Calculated 2019-11-09 04:56:00 [facility] [place] Height 2019-11-08 23:43:00 198.12 cm [facility] BMI Calculated 2019-11-08 23:43:00 [facility] Weight 2019-11-08 23:43:00 [facility] [place] Systolic (mm Hg) 2019-10-19 18:38:00 Bryan rial Yony Diastolic (mm Hg) 2019-10-19 18:38:00 Mem o[facility] [place] Respitory Rate 2019-10-19 18:38:00 Memori al [place] Systolic (mm Hg) 2019-10-19 18:13:00 Bryan rial [place] Diastolic (mm Hg) 2019-10-19 18:13:00 Mem o[facility] [place] Respitory Rate 2019-10-19 18:13:00 [facility] [place] Systolic (mm Hg) 2019-10-19 17:23:00 Bryan rial Yony Diastolic (mm Hg) 2019-10-19 17:23:00 Mem o[facility] [place] Respitory Rate 2019-10-19 17:23:00 [facility] [place] Height 2019-10-19 03:07:00 198.12 cm [facility] BMI Calculated 2019-10-19 03:07:00 [facility] Weight 2019-10-19 03:07:00 [facility] Heart Rate 2019-10-19 03:07:00 [facility] Temperature Oral (F) 2019-10-19 03:07:00 98.5 F [facility] [place] Temperature Oral (F) 2019-04-12 20:56:00 98.0 F [facility] [place] Heart Rate 2019-04-12 20:56:00 [facility] Respitory Rate 2019-04-12 20:56:00 [facility] Systolic (mm Hg) 2019-04-12 20:56:00 Bryan rial Yony Diastolic (mm Hg) 2019-04-12 20:56:00 Mem o[facility] Heart Rate 2019-04-12 18:53:00 [facility] [place] Temperature Oral (F) 2019-04-12 18:39:00 97.8 F [facility] Heart Rate 2019-04-12 18:39:00 [facility] [place] Respitory Rate 2019-04-12 18:39:00 [facility]ori al [facility] Systolic (mm Hg) 2019-04-12 18:39:00 Bryan rial Yony Diastolic (mm Hg) 2019-04-12 18:39:00 Mem o[facility] Yony Temperature Oral (F) 2019-04-12 15:05:00 97.7 F [facility] Respitory Rate 2019-04-12 15:05:00 [facility] [place] Systolic (mm Hg) 2019-04-12 15:05:00 Bryan rial Yony Diastolic (mm Hg) 2019-04-12 15:05:00 [facility] o[facility] Height 2019-04-12 09:49:00 198.12 cm [facility] [place] Weight 2019-04-12 09:49:00 [facility] [place] BMI Calculated 2019-04-12 09:49:00 [facility] BMI Calculated 2019-04-12 08:23:00 [facility] [place] BMI Calculated 2019-04-12 08:21:00 [facility] Height 2019-04-12 03:41:00 198.12 cm [facility] [place] Weight 2019-04-12 03:41:00 [facility] Respitory Rate 2015-12-31 17:00:00 [facility] [place] Heart Rate 2015-12-31 17:00:00 [facility] [place] Temperature Oral (F) 2015-12-31 17:00:00 98.2 F [facility] Systolic (mm Hg) 2015-12-31 17:00:00 Bryan rial [facility]ony Diastolic (mm Hg) 2015-12-31 17:00:00 Mem [facility] [place] Respitory Rate 2015-12-31 13:05:00 [facility] [place] Temperature Oral (F) 2015-12-31 13:00:00 98.4 F [facility] Systolic (mm Hg) 2015-12-31 13:00:00 Bryan rial [facility]ony Diastolic (mm Hg) 2015-12-31 13:00:00 Mem o[facility] Respitory Rate 2015-12-31 13:00:00 [facility] [place] Heart Rate 2015-12-31 13:00:00 [facility] Temperature Oral (F) 2015-12-31 09:00:00 98.3 F [facility] [place] Heart Rate 2015-12-31 09:00:00 [facility] [place] Systolic (mm Hg) 2015-12-31 09:00:00 Bryan rial Yony Diastolic (mm Hg) 2015-12-31 09:00:00 [facility] [place] BMI Calculated 2015-12-25 08:37:00 [facility] [place] Weight 2015-12-25 08:37:00 [facility] Height 2015-12-25 08:37:00 198.12 cm [facility] [place] BMI Calculated 2015-12-25 00:36:00 [facility] Weight 2015-12-25 00:36:00 [facility] Height 2015-12-25 00:36:00 198.12 cm [facility] Systolic (mm Hg) 2015-12-04 14:08:00 Bryan rial [place] Diastolic (mm Hg) 2015-12-04 14:08:00 Mem orial [place] Temperature Oral (F) 2015-12-04 13:20:00 97.8 F [facility] [place] Respitory Rate 2015-12-04 13:20:00 [facility] [place] Heart Rate 2015-12-04 13:20:00 [facility] Systolic (mm Hg) 2015-12-04 13:20:00 Bryan rial Yony Diastolic (mm Hg) 2015-12-04 13:20:00 Mem orial [place] Height 2015-12-04 09:13:00 198.1 cm [facility] BMI Calculated 2015-12-04 09:13:00 [facility] [place] Weight 2015-12-04 09:13:00 [facility] Systolic (mm Hg) 2015-12-04 09:00:00 Bryan rial [place] Diastolic (mm Hg) 2015-12-04 09:00:00 Mem o[facility] Respitory Rate 2015-12-04 09:00:00 [facility] [place] Heart Rate 2015-12-04 09:00:00 [facility] [place] Temperature Oral (F) 2015-12-04 09:00:00 97.8 F [facility] Height 2015-12-04 04:32:00 198.12 cm [facility] [place] Weight 2015-12-04 04:32:00 [facility] [place] BMI Calculated 2015-12-04 04:32:00 [facility] [place] Temperature Oral (F) 2015-12-04 04:29:00 98.4 F [facility] [place] Heart Rate 2015-12-04 04:29:00 [facility] Respitory Rate 2015-12-04 04:29:00 [facility] Height 2015-12-04 01:23:00 198.12 cm [facility] Weight 2015-12-04 01:23:00 [facility] [place] BMI Calculated 2015-12-04 01:23:00 [facility] [place] Temperature Oral (F) 2013-11-11 12:38:00 98 F [facility] Respitory Rate 2013-11-11 12:38:00 [facility] Heart Rate 2013-11-11 12:38:00 [facility] Diastolic (mm Hg) 2013-11-11 12:38:00 [facility] [place] Systolic (mm Hg) 2013-11-11 12:38:00 Bryan rial [place] Temperature Oral (F) 2013-11-11 09:12:00 98.0 F [facility] Systolic (mm Hg) 2013-11-11 09:12:00 Bryan rial [place] Heart Rate 2013-11-11 09:12:00 [facility] [place] Respitory Rate 2013-11-11 09:12:00 Memori al Yony Diastolic (mm Hg) 2013-11-11 09:12:00 Mem o[facility] [place] Temperature Oral (F) 2013-11-11 03:38:00 97.7 F [facility] Respitory Rate 2013-11-11 03:38:00 [facility] [place] Systolic (mm Hg) 2013-11-11 03:38:00 Bryan rial [place] Diastolic (mm Hg) 2013-11-11 03:38:00 [facility] [place] Heart Rate 2013-11-11 03:38:00 [facility] [place] Weight 2013-11-11 03:36:00 [facility] [place] BMI Calculated 2013-11-11 03:36:00 [facility] [place] Height 2013-11-11 03:36:00 198.12 cm [facility] BMI Calculated 2013-11-11 00:46:00 [facility] Weight 2013-11-11 00:46:00 [facility] Height 2013-11-11 00:46:00 167.64 cm [facility] [place] Procedures Procedure Date / Time Performing Clinician Source Performed Appendectomy [facility] [place] Cholecystectomy [facility] Primary repair of umbilical Bryan rial Yony hernia Encounters Start End Encounter Admission Attending Care Care Encounter Source Date/Time Date/Time Type Type Clinicians Facility Department ID 2021-01-16 2021-01-16 Outpatient GCCOVIDV GCCOVIDV [id number] GCCOVID 00:00:00 00:00:00 V 2019-11-08 2019-11-10 [facility] [id number] [facility] 23:40:47 17:45:00 n swathi Bhakta 01 [facility] 2019-11-08 2019-11-10 [place], [place] [id number] 18:40:47 12:45:00 Val 01 2019-10-19 2019-10-19 Inpatient [facility] [id number] Mem[facility] 02:41:41 19:10:00 r Yony 00 [facility] 2019-10-18 2019-10-19 Outpatient Gwendolyn, PL [facility] [id number] 21:41:41 14:10:00 Cj 00 Roberte 2019-04-12 2019-04-12 [facility] [id number] Mem[facility] 03:30:24 21:20:00 n swathi Bhakta 04 [facility] 2019-04-11 2019-04-12 Outpatient Gary, [facility] [id number] 21:30:24 15:20:00 Chayito Julieta Allyssa 2015-12-25 2015-12-31 Inpatient [facility] [id number] [facility] 00:26:00 17:51:00 r Yony 03 [facility] 2015-12-24 2015-12-31 Outpatient [place], [place] [facility]SE [id number] 19:26:00 12:51:00 Ivanna Smiley Darin 2015-12-04 2015-12-04 Observatio [facility] [id number] [facility] 01:22:00 14:00:00 n swathi Bhakta 02 [facility] 2015-12-03 2015-12-[address] [facility] [id number] 20:22:00 09:00:00 Nakul Uriah Mukund 2013-11-11 2013-11-11 OBS [facility] [id number] [facility] 00:35:00 15:10:00 Observatio r Yony 01 l n Patient Laure [facility] 2013-11-10 2013-11-11 Outpatient Adrienne, [id number] . [id number] 19:35:00 10:10:00 Amito [id number] 01 Results Test Description Test Time Test Comments Results Result Comments Source CHEM PANEL 2019-11-10 10:34:00 Test Item Value Reference Range Interpretation Comme nts Glucose Lvl (test code = Glucose Lvl) 127 70-99 [facility]2020-09-07 10:34:00 Test Item Value Reference Range Interpretation Comments BUN (test code = BUN) 24 7-22 [facility]2020-09-07 10:34:00 Test Item Value Reference Range Interpretation Comments Creatinine Lvl (test code = Creatinine 1.07 0.50-1.40 Lvl) [facility]2020-09-07 10:34:00 Test Item Value Reference Range Interpretation Comments Sodium Lvl (test code = Sodium Lvl) 142 135-145 [facility]2020-09-07 10:34:00 Test Item Value Reference Range Interpretation Comments Potassium Lvl (test code = Potassium 4.9 3.5-5.1 Lvl) [facility]2020-09-07 10:34:00 Test Item Value Reference Range Interpretation Comments Chloride Lvl (test code = Chloride Lvl) 113 95-109 [facility]2020-09-07 10:34:00 Test Item Value Reference Range Interpretation Comments CO2 (test code = CO2) 21 24-32 [facility]2020-09-07 10:34:00 Test Item Value Reference Range Interpretation Comments AGAP (test code = AGAP) 12.9 10.0-20.0 [facility]2020-09-07 10:34:00 Test Item Value Reference Range Interpretation Comments Calcium Lvl (test code = Calcium Lvl) 8.8 8.5-10.5 [facility]2020-09-07 10:34:00 Test Item Value Reference Range Interpretation Comments eGFR (test code = eGFR) 79 [facility]lrm[facility]fXPCSAXDKJP0953-23-90 10:34:00 Test Item Value Reference Range Interpretation Comments WBC (test code = WBC) 9.8 3.7-10.4 [facility]UvtbsgqLUKCDFOIBP2274-30-87 10:34:00 Test Item Value Reference Range Interpretation Comments RBC (test code = RBC) 4.77 4.70-6.10 [facility] CenterQxdlwylINKUSOPDDI4919-12-44 10:34:00 Test Item Value Reference Range Interpretation Comments Hgb (test code = Hgb) 13.6 14.0-18.0 [facility] CenterBlgjeyvAORJEOXWCX6517-14-81 10:34:00 Test Item Value Reference Range Interpretation Comments Hct (test code = Hct) 41.4 42.0-54.0 [facility] CenterWiipmwlAFUQHCWRWW1960-85-91 10:34:00 Test Item Value Reference Range Interpretation Comments MCV (test code = MCV) 86.9 80.0-94.0 [facility] CenterTsrsoukEWGEJFRLNH0087-46-13 10:34:00 Test Item Value Reference Range Interpretation Comments MCH (test code = MCH) 28.5 pg 27.0-31.0 [facility] CenterNrbnczsKEDGDXGZZF5336-39-89 10:34:00 Test Item Value Reference Range Interpretation Comments MCHC (test code = MCHC) 32.8 32.0-36.0 [facility] CenterRhtavjaSJVIHPYIJK3750-25-20 10:34:00 Test Item Value Reference Range Interpretation Comments RDW (test code = RDW) 14.6 11.5-14.5 [facility] CenterRoznagbCFWGBWUQTB3664-14-65 10:34:00 Test Item Value Reference Range Interpretation Comments Platelet (test code = Platelet) 222 133-450 [facility] CenterHhrougaZEGNLVPOUF1255-78-96 10:34:00 Test Item Value Reference Range Interpretation Comments MPV (test code = MPV) 8.2 7.4-10.4 [facility] CenterSPECIAL [id number] 10:34:00 Test Item Value Reference Range Interpretation Comments Hgb A1C (test code = Hgb A1C) 6.5 [facility] CenterCARDIAC [id number] 09:48:00 Test Item Value Reference Range Interpretation Comments Troponin-I (test code = Troponin-I) no gt <=0.40 [facility] CenterCHEM [id number] 09:48:00 Test Item Value Reference Range Interpretation Comments Glucose Lvl (test code = Glucose Lvl) 109 70-99 [place] [id number] 09:48:00 Test Item Value Reference Range Interpretation Comments BUN (test code = BUN) 23 7-22 [place] [id number] 09:48:00 Test Item Value Reference Range Interpretation Comments Creatinine Lvl (test code = Creatinine 1.09 0.50-1.40 Lvl) [place] [id number] 09:48:00 Test Item Value Reference Range Interpretation Comments Sodium Lvl (test code = Sodium Lvl) 141 135-145 [place] [id number] 09:48:00 Test Item Value Reference Range Interpretation Comments Potassium Lvl (test code = Potassium 4.0 3.5-5.1 Lvl) [place] [id number] 09:48:00 Test Item Value Reference Range Interpretation Comments Chloride Lvl (test code = Chloride Lvl) 111 95-109 [place] [id number] 09:48:00 Test Item Value Reference Range Interpretation Comments CO2 (test code = CO2) 25 24-32 [place] [id number] 09:48:00 Test Item Value Reference Range Interpretation Comments Calcium Lvl (test code = Calcium Lvl) 8.5 8.5-10.5 [place] [id number] 09:48:00 Test Item Value Reference Range Interpretation Comments AGAP (test code = AGAP) 9.0 10.0-20.0 [place] [id number] 09:48:00 Test Item Value Reference Range Interpretation Comments eGFR (test code = eGFR) 77 [place] [id number] 09:48:00 Test Item Value Reference Range Interpretation Comments Total Protein (test code = Total 7.0 6.4-8.4 Protein) [place] [id number] 09:48:00 Test Item Value Reference Range Interpretation Comments Albumin Lvl (test code = Albumin Lvl) 3.1 3.5-5.0 [place] [id number] 09:48:00 Test Item Value Reference Range Interpretation Comments ALT (test code = ALT) 32 <=65 [place] 9[address]-09-06 09:48:00 Test Item Value Reference Range Interpretation Comments AST (test code = AST) 26 <=37 [place] [id number] 09:48:00 Test Item Value Reference Range Interpretation Comments Alk Phos (test code = Alk Phos) 91 39-136 [place] [id number] 09:48:00 Test Item Value Reference Range Interpretation Comments Bili Total (test code = Bili Total) 0.3 0.2-1.3 [place] [address]-09-06 09:48:00 Test Item Value Reference Range Interpretation Comments Bili Direct (test code = Bili Direct) 0.1 <=0.3 [place] [address]-09-06 09:48:00 Test Item Value Reference Range Interpretation Comments Globulin (test code = Globulin) 3.9 2.7-4.2 [place] [address]-09-06 09:48:00 Test Item Value Reference Range Interpretation Comments A/G Ratio (test code = A/G Ratio) 0.8 1 0.7-1.6 [place] [address]-09-06 09:48:00 Test Item Value Reference Range Interpretation Comments Bili Indirect (test code = Bili 0.2 <=1.0 Indirect) [place] [address]-09-06 09:48:00 Test Item Value Reference Range Interpretation Comments Magnesium Lvl (test code = Magnesium 2.0 1.8-2.4 Lvl) [place] [address]-09-06 09:48:00 Test Item Value Reference Range Interpretation Comments Phosphorus (test code = Phosphorus) 4.1 2.5-4.5 [place] [address]-09-06 09:48:00 Test Item Value Reference Range Interpretation Comments WBC (test code = WBC) 9.0 3.7-10.4 [place] [address]-09-06 09:48:00 Test Item Value Reference Range Interpretation Comments RBC (test code = RBC) 4.84 4.70-6.10 [place] [address]-09-06 09:48:00 Test Item Value Reference Range Interpretation Comments Hgb (test code = Hgb) 13.8 14.0-18.0 [place] [address]-09-06 09:48:00 Test Item Value Reference Range Interpretation Comments Hct (test code = Hct) 41.8 42.0-54.0 [facility] CenterWjzffhxHLZPBCDXKH2782-26-70 09:48:00 Test Item Value Reference Range Interpretation Comments MCV (test code = MCV) 86.3 80.0-94.0 [facility] CenterOyvzsitTVDYBQASDG8194-04-58 09:48:00 Test Item Value Reference Range Interpretation Comments MCH (test code = MCH) 28.6 pg 27.0-31.0 [facility] CenterWcggutrWUHQSUXZTC3841-10-67 09:48:00 Test Item Value Reference Range Interpretation Comments MCHC (test code = MCHC) 33.1 32.0-36.0 [facility] CenterPjnmsoxYIRPQHWRSC6836-33-64 09:48:00 Test Item Value Reference Range Interpretation Comments RDW (test code = RDW) 14.6 11.5-14.5 [facility] CenterCqdxiokRQBHXNLELM0402-01-48 09:48:00 Test Item Value Reference Range Interpretation Comments Platelet (test code = Platelet) 263 133-450 [facility]ClmcxszVMJWORVKIC4818-44-81 09:48:00 Test Item Value Reference Range Interpretation Comments MPV (test code = MPV) 8.0 7.4-10.4 [place] [id number] 09:48:00 Test Item Value Reference Range Interpretation Comments Segs (test code = Segs) 60.1 45.0-75.0 [facility]BfcldcpDAAQZEQUYM0274-22-13 09:48:00 Test Item Value Reference Range Interpretation Comments Lymphocytes (test code = Lymphocytes) 26.6 20.0-40.0 [facility] CenterOjrydpkUCBLAREFTO8054-59-12 09:48:00 Test Item Value Reference Range Interpretation Comments Monocytes (test code = Monocytes) 8.2 2.0-12.0 [place] 358240-09-06 09:48:00 Test Item Value Reference Range Interpretation Comments Eosinophils (test code = Eosinophils) 4.6 <=4.0 [place] 358240-09-06 09:48:00 Test Item Value Reference Range Interpretation Comments Basophils (test code = Basophils) 0.5 <=1.0 [place] 358240-09-06 09:48:00 Test Item Value Reference Range Interpretation Comments Neutrophils # (test code = Neutrophils 5.4 1.5-8.1 #) [facility]WqrbqlrBXZBOHFGHP6124-12-41 09:48:00 Test Item Value Reference Range Interpretation Comments Lymphocytes # (test code = Lymphocytes 2.4 1.0-5.5 #) [facility]Qum[facility]faqMREIDQNUUI5577-[facility] 09:48:00 Test Item Value Reference Range Interpretation Comments Monocytes # (test code = Monocytes #) 0.7 <=0.8 [facility] HospitalLwlrjyyYNMMUOXXAD0016-27-16 09:48:00 Test Item Value Reference Range Interpretation Comments Eosinophils # (test code = Eosinophils 0.4 <=0.5 #) [facility]DyyecbyCOEZEH7047-82-21 09:48:00 Test Item Value Reference Range Interpretation Comments Trig (test code = Trig) 129 [facility] HospitalUjpeudcTFIHHJ4416-60-73 09:48:00 Test Item Value Reference Range Interpretation Comments Chol (test code = Chol) 175 [facility] HospitalDywcitiLUWGCX0912-91-58 09:48:00 Test Item Value Reference Range Interpretation Comments HDL (test code = HDL) 34 [facility] HospitalXblczogLWDKIN0519-04-26 09:48:00 Test Item Value Reference Range Interpretation Comments CHD Risk (test code = CHD Risk) 5.15 1 4.00-7.30 [facility] CenterXaenjydFQFVGR5345-09-93 09:48:00 Test Item Value Reference Range Interpretation Comments LDL (Calculated) (test code = LDL 115 (Calculated)) [facility] HospitalSajwpasWWNWAB7266-45-29 09:48:00 Test Item Value Reference Range Interpretation Comments VLDL (test code = VLDL) 26 1 [facility] CenterRelypsa VGHQCBC5593-39-53 04:27:00 Test Item Value Reference Range Interpretation Comments Troponin-I (test code = Troponin-I) no gt <=0.40 [facility] CampusEmployyd.comAC NFHJWSG7189-83-89 23:57:00 Test Item Value Reference Range Interpretation Comments Troponin-I (test code = Troponin-I) no gt <=0.40 [facility] YFZKE5247-50-10 23:57:00 Test Item Value Reference Range Interpretation Comments Glucose Lvl (test code = Glucose Lvl) 120 70-99 [facility] CampusShopo WVKJK1751-50-48 23:57:00 Test Item Value Reference Range Interpretation Comments BUN (test code = BUN) 24 7-22 [facility] CampusShopo UWOVW2619-23-12 23:57:00 Test Item Value Reference Range Interpretation Comments Creatinine Lvl (test code = Creatinine 1.27 0.50-1.40 Lvl) [facility] CampusRethink AutismWASHINGTON REGIONAL MEDICAL CENTERSFGMH4273-65-63 23:57:00 Test Item Value Reference Range Interpretation Comments Sodium Lvl (test code = Sodium Lvl) 142 135-145 [facility]2020-09-05 23:57:00 Test Item Value Reference Range Interpretation Comments Potassium Lvl (test code = Potassium 4.5 3.5-5.1 Lvl) [facility] CampusRethink AutismROB[place] [address]OVSQI1679-95-07 23:57:00 Test Item Value Reference Range Interpretation Comments Chloride Lvl (test code = Chloride Lvl) 109 95-109 [facility] CampusRethink AutismROBERT [place]LE [address]PDWRS0289-47-58 23:57:00 Test Item Value Reference Range Interpretation Comments CO2 (test code = CO2) 27 24-32 [facility] CampusRethink AutismROBERT [place]LE [id number] 23:57:00 Test Item Value Reference Range Interpretation Comments Calcium Lvl (test code = Calcium Lvl) 9.1 8.5-10.5 [facility] CampusRethink AutismROBERT [place] [address]WHMLM4605-16-98 23:57:00 Test Item Value Reference Range Interpretation Comments Total Protein (test code = Total 7.6 6.4-8.4 Protein) [facility] CampusRethink AutismWASHINGTON REGIONAL MEDICAL CENTERMWHPJ6629-58-02 23:57:00 Test Item Value Reference Range Interpretation Comments Albumin Lvl (test code = Albumin Lvl) 3.3 3.5-5.0 [facility] CampusRethink AutismROBERT [place]LE [address]RGMBM1268-22-70 23:57:00 Test Item Value Reference Range Interpretation Comments ALT (test code = ALT) 36 <=65 [facility] CampusRethink AutismROBERT [place] [address]PXYBA7975-05-58 23:57:00 Test Item Value Reference Range Interpretation Comments AST (test code = AST) 34 <=37 [facility] CampusRethink AutismROBERT [place]LE [address]RTJVT1109-27-31 23:57:00 Test Item Value Reference Range Interpretation Comments Alk Phos (test code = Alk Phos) 97 39-136 [place] 426840-09-05 23:57:00 Test Item Value Reference Range Interpretation Comments Bili Total (test code = Bili Total) 0.5 0.2-1.3 [place] 426840-09-05 23:57:00 Test Item Value Reference Range Interpretation Comments AGAP (test code = AGAP) 10.5 10.0-20.0 [facility] CampusChristopher [facility] 074230-09-05 23:57:00 Test Item Value Reference Range Interpretation Comments B/C Ratio (test code = B/C Ratio) 19 1 6-25 [place] 91998-09-05 23:57:00 Test Item Value Reference Range Interpretation Comments Globulin (test code = Globulin) 4.3 2.7-4.2 [place] [address]-09-05 23:57:00 Test Item Value Reference Range Interpretation Comments A/G Ratio (test code = A/G Ratio) 0.8 1 0.7-1.6 [place] 91998-09-05 23:57:00 Test Item Value Reference Range Interpretation Comments eGFR (test code = eGFR) 64 [place] [address]-09-05 23:57:00 Test Item Value Reference Range Interpretation Comments WBC (test code = WBC) 11.7 3.7-10.4 [place] [address]-09-05 23:57:00 Test Item Value Reference Range Interpretation Comments RBC (test code = RBC) 5.01 4.70-6.10 [place] [address]-09-05 23:57:00 Test Item Value Reference Range Interpretation Comments Hgb (test code = Hgb) 14.2 14.0-18.0 [place] [address]-09-05 23:57:00 Test Item Value Reference Range Interpretation Comments Hct (test code = Hct) 42.9 42.0-54.0 [place] [address]-09-05 23:57:00 Test Item Value Reference Range Interpretation Comments MCV (test code = MCV) 85.7 80.0-94.0 [place] [address]-09-05 23:57:00 Test Item Value Reference Range Interpretation Comments MCH (test code = MCH) 28.3 pg 27.0-31.0 [place] [address]-09-05 23:57:00 Test Item Value Reference Range Interpretation Comments MCHC (test code = MCHC) 33.0 32.0-36.0 [place] [address]-09-05 23:57:00 Test Item Value Reference Range Interpretation Comments RDW (test code = RDW) 14.6 11.5-14.5 [place] [address]-09-05 23:57:00 Test Item Value Reference Range Interpretation Comments Platelet (test code = Platelet) 299 133-450 [facility] CenterWahhppeHFRMLNCEQT6225-69-93 23:57:00 Test Item Value Reference Range Interpretation Comments MPV (test code = MPV) 8.5 7.4-10.4 [facility] CenterIvyyxjxESLXBDBWYI6427-87-46 23:57:00 Test Item Value Reference Range Interpretation Comments PT (test code = PT) 12.3 s 12.0-14.7 [facility] CenterRpnhsbyFMWQOFBUGI4035-59-94 23:57:00 Test Item Value Reference Range Interpretation Comments INR (test code = INR) 0.92 1 0.85-1.17 [facility] CenterTwirhnnGIODGDSCRP8072-52-50 23:57:00 Test Item Value Reference Range Interpretation Comments PTT (test code = PTT) 25.3 s 22.9-35.8 [facility] CenterGysqsatWDQWIRRKAD9774-35-87 23:57:00 Test Item Value Reference Range Interpretation Comments Segs (test code = Segs) 66.9 45.0-75.0 [facility] CenterJliwmyrYOHXXFVEKQ1963-64-39 23:57:00 Test Item Value Reference Range Interpretation Comments Lymphocytes (test code = Lymphocytes) 21.2 20.0-40.0 [facility] CenterGyvqkdqEMEUSDJMVW5676-31-66 23:57:00 Test Item Value Reference Range Interpretation Comments Monocytes (test code = Monocytes) 7.6 2.0-12.0 [facility] CenterBifprrfMBSIJTQTVP7221-77-13 23:57:00 Test Item Value Reference Range Interpretation Comments Eosinophils (test code = Eosinophils) 3.6 <=4.0 [facility] CenterTgrneloGFIJNGITCE9652-66-78 23:57:00 Test Item Value Reference Range Interpretation Comments Basophils (test code = Basophils) 0.7 <=1.0 [facility] CenterYiwozznXYBIDGRPZC0401-55-30 23:57:00 Test Item Value Reference Range Interpretation Comments Neutrophils # (test code = Neutrophils 7.8 1.5-8.1 #) [facility] CenterWyqwwpfZHYGYHMRJG9699-26-76 23:57:00 Test Item Value Reference Range Interpretation Comments Lymphocytes # (test code = Lymphocytes 2.5 1.0-5.5 #) [facility] CenterKcntwmwOFKAVNDMDH3805-03-62 23:57:00 Test Item Value Reference Range Interpretation Comments Monocytes # (test code = Monocytes #) 0.9 <=0.8 [facility] CenterVpbreysFBVIBCBAWV5498-53-27 23:57:00 Test Item Value Reference Range Interpretation Comments Eosinophils # (test code = Eosinophils 0.4 <=0.5 #) [facility] CenterNvbdfhjVYHPMVKEQP1610-03-78 23:57:00 Test Item Value Reference Range Interpretation Comments Basophils # (test code = Basophils #) 0.1 <=0.2 [facility] SFCOBLB2682-67-64 14:24:00 Test Item Value Reference Range Interpretation Comments Troponin-I (test code = Troponin-I) no gt <=0.40 [facility] OHHHUJQ9625-17-09 09:54:00 Test Item Value Reference Range Interpretation Comments Troponin-I (test code = Troponin-I) no gt <=0.40 [facility] CampusShopo SJNQL1988-71-80 09:54:00 Test Item Value Reference Range Interpretation Comments Glucose Lvl (test code = Glucose Lvl) 114 70-99 [facility] CenterR[facility] PRODUCTION[facility] XWNPB2087-01-13 09:54:00 Test Item Value Reference Range Interpretation Comments BUN (test code = BUN) 25 7-22 [facility] CenterR[facility] BQGKP4267-15-89 09:54:00 Test Item Value Reference Range Interpretation Comments Creatinine Lvl (test code = Creatinine 1.13 0.50-1.40 Lvl) [facility] CenterR[facility] QSGCD9541-94-75 09:54:00 Test Item Value Reference Range Interpretation Comments Sodium Lvl (test code = Sodium Lvl) 138 135-145 [facility] CenterR[facility] OLMPV7350-33-55 09:54:00 Test Item Value Reference Range Interpretation Comments Potassium Lvl (test code = Potassium 4.1 3.5-5.1 Lvl) [facility] CenterR[facility] RAEBP0003-79-24 09:54:00 Test Item Value Reference Range Interpretation Comments Chloride Lvl (test code = Chloride Lvl) 108 95-109 [facility] CampusShopo SGKVH7634-88-12 09:54:00 Test Item Value Reference Range Interpretation Comments CO2 (test code = CO2) 24 24-32 [facility] CenterR[facility] BKXHJ9864-17-86 09:54:00 Test Item Value Reference Range Interpretation Comments Calcium Lvl (test code = Calcium Lvl) 8.7 8.5-10.5 [facility] CenterR[facility] VSDQS9905-43-61 09:54:00 Test Item Value Reference Range Interpretation Comments Total Protein (test code = Total 7.4 6.4-8.4 Protein) [facility]2020-08-16 09:54:00 Test Item Value Reference Range Interpretation Comments Albumin Lvl (test code = Albumin Lvl) 3.0 3.5-5.0 [place] 426840-08-16 09:54:00 Test Item Value Reference Range Interpretation Comments ALT (test code = ALT) 36 <=65 [facility]2020-08-16 09:54:00 Test Item Value Reference Range Interpretation Comments AST (test code = AST) 26 <=37 [facility]2020-08-16 09:54:00 Test Item Value Reference Range Interpretation Comments Alk Phos (test code = Alk Phos) 94 39-136 [facility]2020-08-16 09:54:00 Test Item Value Reference Range Interpretation Comments Bili Total (test code = Bili Total) 0.3 0.2-1.3 [facility]2020-08-16 09:54:00 Test Item Value Reference Range Interpretation Comments AGAP (test code = AGAP) 10.1 10.0-20.0 [facility]2020-08-16 09:54:00 Test Item Value Reference Range Interpretation Comments B/C Ratio (test code = B/C Ratio) 22 1 6-25 [facility]2020-08-16 09:54:00 Test Item Value Reference Range Interpretation Comments Globulin (test code = Globulin) 4.4 2.7-4.2 [facility]2020-08-16 09:54:00 Test Item Value Reference Range Interpretation Comments A/G Ratio (test code = A/G Ratio) 0.7 1 0.7-1.6 [facility]2020-08-16 09:54:00 Test Item Value Reference Range Interpretation Comments eGFR (test code = eGFR) 74 [facility]2020-08-16 09:54:00 Test Item Value Reference Range Interpretation Comments Magnesium Lvl (test code = Magnesium 2.3 1.8-2.4 Lvl) [facility] CenterGjyflpaPTLUHAVIYV0403-33-40 09:54:00 Test Item Value Reference Range Interpretation Comments WBC (test code = WBC) 8.9 3.7-10.4 [place] [address]-08-16 09:54:00 Test Item Value Reference Range Interpretation Comments RBC (test code = RBC) 4.70 4.70-6.10 [facility] CenterQymzsxtZRKLVLAAUR3649-11-75 09:54:00 Test Item Value Reference Range Interpretation Comments Hgb (test code = Hgb) 13.3 14.0-18.0 [place] [address]-08-16 09:54:00 Test Item Value Reference Range Interpretation Comments Hct (test code = Hct) 40.3 42.0-54.0 [place] [address]-08-16 09:54:00 Test Item Value Reference Range Interpretation Comments MCV (test code = MCV) 85.8 80.0-94.0 [place] [address]-08-16 09:54:00 Test Item Value Reference Range Interpretation Comments MCH (test code = MCH) 28.3 pg 27.0-31.0 [facility] CenterPlnazmaYEUALNWFBK5574-84-28 09:54:00 Test Item Value Reference Range Interpretation Comments MCHC (test code = MCHC) 33.0 32.0-36.0 [place] [address]-08-16 09:54:00 Test Item Value Reference Range Interpretation Comments RDW (test code = RDW) 14.7 11.5-14.5 [place] [address]-08-16 09:54:00 Test Item Value Reference Range Interpretation Comments Platelet (test code = Platelet) 257 133-450 [facility] CenterNixpmogVZKBSMPHQI6968-16-24 09:54:00 Test Item Value Reference Range Interpretation Comments MPV (test code = MPV) 8.0 7.4-10.4 [place] [address]-08-16 09:54:00 Test Item Value Reference Range Interpretation Comments PT (test code = PT) 12.1 s 12.0-14.7 [place] [address]-08-16 09:54:00 Test Item Value Reference Range Interpretation Comments INR (test code = INR) 0.90 1 0.85-1.17 [place] [address]-08-16 09:54:00 Test Item Value Reference Range Interpretation Comments PTT (test code = PTT) 22.4 s 22.9-35.8 [place] [address]-08-16 09:54:00 Test Item Value Reference Range Interpretation Comments Segs (test code = Segs) 60.3 45.0-75.0 [facility] CampusDwenzchKPBLTOXEQC1363-38-74 09:54:00 Test Item Value Reference Range Interpretation Comments Lymphocytes (test code = Lymphocytes) 26.7 20.0-40.0 [facility] CampusXfskkvzTCHEGVNTIG2870-44-94 09:54:00 Test Item Value Reference Range Interpretation Comments Monocytes (test code = Monocytes) 7.6 2.0-12.0 [facility] CampusKhfhqkwFQRPHLAFSW7287-41-21 09:54:00 Test Item Value Reference Range Interpretation Comments Eosinophils (test code = Eosinophils) 4.1 <=4.0 [facility] CampusEysndasPBDQUDKOUE9748-21-41 09:54:00 Test Item Value Reference Range Interpretation Comments Basophils (test code = Basophils) 1.3 <=1.0 [facility] CampusQckjxvuTJUTIQITQG3668-99-71 09:54:00 Test Item Value Reference Range Interpretation Comments Neutrophils # (test code = Neutrophils 5.4 1.5-8.1 #) [facility] CenterGtyoarjBNVGNNNHHG4938-95-94 09:54:00 Test Item Value Reference Range Interpretation Comments Lymphocytes # (test code = Lymphocytes 2.4 1.0-5.5 #) [facility] CenterWvfelqqECBNTVZSPF1992-34-49 09:54:00 Test Item Value Reference Range Interpretation Comments Monocytes # (test code = Monocytes #) 0.7 <=0.8 [facility] CampusMaqwmmyOZHRINTARR2448-94-59 09:54:00 Test Item Value Reference Range Interpretation Comments Eosinophils # (test code = Eosinophils 0.4 <=0.5 #) [facility] CenterVmcxjvwTJGFLWKTKV9111-09-13 09:54:00 Test Item Value Reference Range Interpretation Comments Basophils # (test code = Basophils #) 0.1 <=0.2 [facility] CenterCARDIAC RPBEPAK8155-68-99 06:12:00 Test Item Value Reference Range Interpretation Comments Troponin-I (test code = Troponin-I) no gt <=0.40 [facility] CenterCHEM VYYTP7189-48-32 06:12:00 Test Item Value Reference Range Interpretation Comments Glucose Lvl (test code = Glucose Lvl) 115 70-99 [facility] CenterCHEM FGCGY4088-31-28 06:12:00 Test Item Value Reference Range Interpretation Comments BUN (test code = BUN) 23 7-22 [place] 426840-08-16 06:12:00 Test Item Value Reference Range Interpretation Comments Creatinine Lvl (test code = Creatinine 1.22 0.50-1.40 Lvl) [place] 426840-08-16 06:12:00 Test Item Value Reference Range Interpretation Comments Sodium Lvl (test code = Sodium Lvl) 140 135-145 [place] 426840-08-16 06:12:00 Test Item Value Reference Range Interpretation Comments Potassium Lvl (test code = Potassium 3.9 3.5-5.1 Lvl) [place] 426840-08-16 06:12:00 Test Item Value Reference Range Interpretation Comments Chloride Lvl (test code = Chloride Lvl) 107 95-109 [place] 426840-08-16 06:12:00 Test Item Value Reference Range Interpretation Comments CO2 (test code = CO2) 29 24-32 [place] 426840-08-16 06:12:00 Test Item Value Reference Range Interpretation Comments Calcium Lvl (test code = Calcium Lvl) 8.7 8.5-10.5 [place] 426840-08-16 06:12:00 Test Item Value Reference Range Interpretation Comments Total Protein (test code = Total 7.4 6.4-8.4 Protein) [place] 426840-08-16 06:12:00 Test Item Value Reference Range Interpretation Comments Albumin Lvl (test code = Albumin Lvl) 3.2 3.5-5.0 [place] 426840-08-16 06:12:00 Test Item Value Reference Range Interpretation Comments ALT (test code = ALT) 36 <=65 [place] 426840-08-16 06:12:00 Test Item Value Reference Range Interpretation Comments AST (test code = AST) 25 <=37 [place] 426840-08-16 06:12:00 Test Item Value Reference Range Interpretation Comments Alk Phos (test code = Alk Phos) 96 39-136 [place] 426840-08-16 06:12:00 Test Item Value Reference Range Interpretation Comments Bili Total (test code = Bili Total) 0.4 0.2-1.3 [place] [address]-08-16 06:12:00 Test Item Value Reference Range Interpretation Comments AGAP (test code = AGAP) 7.9 10.0-20.0 [facility] YWUFS6353-01-05 06:12:00 Test Item Value Reference Range Interpretation Comments B/C Ratio (test code = B/C Ratio) 19 1 6-25 [place] 9[address]-08-16 06:12:00 Test Item Value Reference Range Interpretation Comments Globulin (test code = Globulin) 4.2 2.7-4.2 [place] 426840-08-16 06:12:00 Test Item Value Reference Range Interpretation Comments A/G Ratio (test code = A/G Ratio) 0.8 1 0.7-1.6 [facility]2020-08-16 06:12:00 Test Item Value Reference Range Interpretation Comments eGFR (test code = eGFR) 67 [facility] CenterOohfbesLZMZHJAVVE7510-53-81 06:12:00 Test Item Value Reference Range Interpretation Comments WBC (test code = WBC) 9.5 3.7-10.4 [place] 358240-08-16 06:12:00 Test Item Value Reference Range Interpretation Comments RBC (test code = RBC) 4.84 4.70-6.10 [place] [address]-08-16 06:12:00 Test Item Value Reference Range Interpretation Comments Hgb (test code = Hgb) 13.8 14.0-18.0 [place] [address]-08-16 06:12:00 Test Item Value Reference Range Interpretation Comments Hct (test code = Hct) 41.1 42.0-54.0 [place] [address]-08-16 06:12:00 Test Item Value Reference Range Interpretation Comments MCV (test code = MCV) 85.0 80.0-94.0 [place] [address]-08-16 06:12:00 Test Item Value Reference Range Interpretation Comments MCH (test code = MCH) 28.5 pg 27.0-31.0 [place] [address]-08-16 06:12:00 Test Item Value Reference Range Interpretation Comments MCHC (test code = MCHC) 33.5 32.0-36.0 [place] [address]-08-16 06:12:00 Test Item Value Reference Range Interpretation Comments RDW (test code = RDW) 14.9 11.5-14.5 [facility] CenterUfdkopbFRDEAUFVPE7296-33-35 06:12:00 Test Item Value Reference Range Interpretation Comments Platelet (test code = Platelet) 274 133-450 [facility] CenterMajswweNVAQDVHPZV9877-19-84 06:12:00 Test Item Value Reference Range Interpretation Comments MPV (test code = MPV) 8.1 7.4-10.4 [facility] CenterWtvipffYOLNKRPABQ8797-86-92 06:12:00 Test Item Value Reference Range Interpretation Comments PTT (test code = PTT) 23.6 s 22.9-35.8 [facility] CenterHtufmimBPNFCDNXUN0496-83-91 06:12:00 Test Item Value Reference Range Interpretation Comments PT (test code = PT) 11.8 s 12.0-14.7 [facility] CenterHrzgotnRCOSVXAYTF1639-42-60 06:12:00 Test Item Value Reference Range Interpretation Comments INR (test code = INR) 0.87 1 0.85-1.17 [facility] CenterFhuefbkKEALEHUBNX3563-19-80 06:12:00 Test Item Value Reference Range Interpretation Comments Segs (test code = Segs) 62.1 45.0-75.0 [facility] CenterElprvvhEXWNRCUUUK8305-86-46 06:12:00 Test Item Value Reference Range Interpretation Comments Lymphocytes (test code = Lymphocytes) 26.8 20.0-40.0 [facility] CenterRnddczlSDCYIJBIQV8944-12-24 06:12:00 Test Item Value Reference Range Interpretation Comments Monocytes (test code = Monocytes) 6.9 2.0-12.0 [facility] CenterRmmwjzjJEJUXDEZTE8686-70-08 06:12:00 Test Item Value Reference Range Interpretation Comments Eosinophils (test code = Eosinophils) 3.6 <=4.0 [facility] CenterVpcqapuSAPBDLACJG3755-89-03 06:12:00 Test Item Value Reference Range Interpretation Comments Basophils (test code = Basophils) 0.6 <=1.0 [facility] CenterKfcpxwzEXHHUBCPLL4561-55-55 06:12:00 Test Item Value Reference Range Interpretation Comments Neutrophils # (test code = Neutrophils 5.9 1.5-8.1 #) [facility] CenterCovuktkJWNQGYCLQL7578-27-30 06:12:00 Test Item Value Reference Range Interpretation Comments Lymphocytes # (test code = Lymphocytes 2.5 1.0-5.5 #) [facility] CenterYfaopkgBUKPVGAVTJ0418-72-99 06:12:00 Test Item Value Reference Range Interpretation Comments Monocytes # (test code = Monocytes #) 0.7 <=0.8 [facility] OajbznhPNXIRPHVOK7567-85-68 06:12:00 Test Item Value Reference Range Interpretation Comments Eosinophils # (test code = Eosinophils 0.3 <=0.5 #) [facility] NzczoxdBWEZSQRSPC8043-95-69 06:12:00 Test Item Value Reference Range Interpretation Comments Basophils # (test code = Basophils #) 0.1 <=0.2 [facility]CARDIAC GUOCPIF2426-43-46 18:39:00 Test Item Value Reference Range Interpretation Comments Troponin-I (test code = Troponin-I) no gt <=0.40 [facility]CARD[facility] DNJUSPZ7968-49-34 11:18:00 Test Item Value Reference Range Interpretation Comments Troponin-I (test code = Troponin-I) no gt <=0.40 [facility] DIFRRQC4526-98-06 08:34:00 Test Item Value Reference Range Interpretation Comments Troponin-I (test code = Troponin-I) no gt <=0.40 [facility] XzyulxzADPVHP0176-07-79 08:34:00 Test Item Value Reference Range Interpretation Comments Trig (test code = Trig) 195 [facility] OelnqotNGISSB9307-82-87 08:34:00 Test Item Value Reference Range Interpretation Comments Chol (test code = Chol) 167 [facility] HricntkXRDBDA1227-10-69 08:34:00 Test Item Value Reference Range Interpretation Comments HDL (test code = HDL) 33 [facility] KzsztfgCBNWHQ3058-45-16 08:34:00 Test Item Value Reference Range Interpretation Comments CHD Risk (test code = CHD Risk) 5.06 1 4.00-7.30 [facility] FynejtvDNYWYO4870-47-71 08:34:00 Test Item Value Reference Range Interpretation Comments LDL (Calculated) (test code = LDL 95 (Calculated)) [facility] TzxxrfgXVDDGZ2452-33-74 08:34:00 Test Item Value Reference Range Interpretation Comments VLDL (test code = VLDL) 39 1 [facility]CARD[facility] AQVNPOU2252-35-70 05:15:00 Test Item Value Reference Range Interpretation Comments Total CK (test code = Total CK) 169 12-191 [facility] [employer] GroceryCHEM [id number] 05:15:00 Test Item Value Reference Range Interpretation Comments Glucose Lvl (test code = Glucose Lvl) 125 70-99 [place] [id number] 05:15:00 Test Item Value Reference Range Interpretation Comments BUN (test code = BUN) 20 7-22 [facility]2020-02-08 05:15:00 Test Item Value Reference Range Interpretation Comments Creatinine Lvl (test code = Creatinine 1.24 0.50-1.40 Lvl) [facility]2020-02-08 05:15:00 Test Item Value Reference Range Interpretation Comments Sodium Lvl (test code = Sodium Lvl) 141 135-145 [facility]2020-02-08 05:15:00 Test Item Value Reference Range Interpretation Comments Potassium Lvl (test code = Potassium 3.8 3.5-5.1 Lvl) [facility]2020-02-08 05:15:00 Test Item Value Reference Range Interpretation Comments Chloride Lvl (test code = Chloride Lvl) 107 95-109 [facility]2020-02-08 05:15:00 Test Item Value Reference Range Interpretation Comments CO2 (test code = CO2) 28 24-32 [place] 426840-02-08 05:15:00 Test Item Value Reference Range Interpretation Comments Calcium Lvl (test code = Calcium Lvl) 8.3 8.5-10.5 [facility]2020-02-08 05:15:00 Test Item Value Reference Range Interpretation Comments Total Protein (test code = Total 7.2 6.4-8.4 Protein) [facility]2020-02-08 05:15:00 Test Item Value Reference Range Interpretation Comments Albumin Lvl (test code = Albumin Lvl) 3.2 3.5-5.0 [place] 426840-02-08 05:15:00 Test Item Value Reference Range Interpretation Comments ALT (test code = ALT) 36 <=65 [place] 426840-02-08 05:15:00 Test Item Value Reference Range Interpretation Comments AST (test code = AST) 21 <=37 [place] 426840-02-08 05:15:00 Test Item Value Reference Range Interpretation Comments Alk Phos (test code = Alk Phos) 89 39-136 [place] 426840-02-08 05:15:00 Test Item Value Reference Range Interpretation Comments Bili Total (test code = Bili Total) 0.4 0.2-1.3 [facility] [id number] 05:15:00 Test Item Value Reference Range Interpretation Comments AGAP (test code = AGAP) 9.8 10.0-20.0 [facility]annCHE[facility] [id number] 05:15:00 Test Item Value Reference Range Interpretation Comments B/C Ratio (test code = B/C Ratio) 16 1 6-25 [facility]CHE[facility] [id number] 05:15:00 Test Item Value Reference Range Interpretation Comments Globulin (test code = Globulin) 4.0 2.7-4.2 [facility]annCHE[facility] [id number] 05:15:00 Test Item Value Reference Range Interpretation Comments A/G Ratio (test code = A/G Ratio) 0.8 1 0.7-1.6 [facility]annRANK PRODUCTIONS [id number] 05:15:00 Test Item Value Reference Range Interpretation Comments eGFR (test code = eGFR) 66 [facility] CampusannCARDIAC EAQCKGM6220-05-64 04:37:00 Test Item Value Reference Range Interpretation Comments BNP (test code = BNP) 32 [facility] CampusVdactycKHTJYCIQQT8686-86-70 04:37:00 Test Item Value Reference Range Interpretation Comments WBC (test code = WBC) 9.3 3.7-10.4 [facility] CampusFdpkwuuPHUYVMHQHM5739-32-74 04:37:00 Test Item Value Reference Range Interpretation Comments RBC (test code = RBC) 4.99 4.70-6.10 [facility] CampusAttrlsdZPXPPTCFLO7735-30-22 04:37:00 Test Item Value Reference Range Interpretation Comments Hgb (test code = Hgb) 13.6 14.0-18.0 [facility] CampusLocceqeNDHMIDVNCX2832-53-50 04:37:00 Test Item Value Reference Range Interpretation Comments Hct (test code = Hct) 41.9 42.0-54.0 [facility] CampusQwmmbjgUJTHIMXVBL5341-21-85 04:37:00 Test Item Value Reference Range Interpretation Comments MCV (test code = MCV) 84.0 80.0-94.0 [facility] CampusWfwebxaOAWYTWJAZC4412-09-71 04:37:00 Test Item Value Reference Range Interpretation Comments MCH (test code = MCH) 27.2 pg 27.0-31.0 [facility] HospitalOfqgufnFLPCVIGIUZ0292-50-77 04:37:00 Test Item Value Reference Range Interpretation Comments MCHC (test code = MCHC) 32.4 32.0-36.0 [facility] HospitalMdgbytsPNIFYWHLDA0507-18-03 04:37:00 Test Item Value Reference Range Interpretation Comments RDW (test code = RDW) 14.8 11.5-14.5 [facility] HospitalCysfopnGJMKZWHQTP4924-45-18 04:37:00 Test Item Value Reference Range Interpretation Comments Platelet (test code = Platelet) 270 133-450 [facility] HospitalNyyuusuCBJPABRXIV1032-83-09 04:37:00 Test Item Value Reference Range Interpretation Comments MPV (test code = MPV) 7.8 7.4-10.4 [facility] CenterOktjtaqSRSUPGSFJO0752-14-01 04:37:00 Test Item Value Reference Range Interpretation Comments PT (test code = PT) 12.0 s 12.0-14.7 [facility] CenterEgbyltqYNNOFMDCCN5587-11-96 04:37:00 Test Item Value Reference Range Interpretation Comments INR (test code = INR) 0.89 1 0.85-1.17 [facility] HospitalAqhdlamLAOUQYBIYM3356-37-12 04:37:00 Test Item Value Reference Range Interpretation Comments PTT (test code = PTT) 26.6 s 22.9-35.8 [facility] HospitalPqmfyjlRCZZIFUNHQ8936-06-12 04:37:00 Test Item Value Reference Range Interpretation Comments Segs (test code = Segs) 59.5 45.0-75.0 [facility] CenterXmjekqgEHDLXKGQHK6845-03-17 04:37:00 Test Item Value Reference Range Interpretation Comments Lymphocytes (test code = Lymphocytes) 28.1 20.0-40.0 [facility] HospitalHvooqwqVQQFFMWZBF8959-34-89 04:37:00 Test Item Value Reference Range Interpretation Comments Monocytes (test code = Monocytes) 8.7 2.0-12.0 [facility] HospitalNejztzuOYOYGSDMBL9525-74-85 04:37:00 Test Item Value Reference Range Interpretation Comments Eosinophils (test code = Eosinophils) 3.0 <=4.0 [facility] HospitalIquyejiNTOCDDOPIR7518-20-64 04:37:00 Test Item Value Reference Range Interpretation Comments Basophils (test code = Basophils) 0.7 <=1.0 [facility] HospitalSeczyxmZZRLBOTDIW8642-19-26 04:37:00 Test Item Value Reference Range Interpretation Comments Neutrophils # (test code = Neutrophils 5.6 1.5-8.1 #) [facility] CenterAhemsapNLKLCISCIB3076-10-49 04:37:00 Test Item Value Reference Range Interpretation Comments Lymphocytes # (test code = Lymphocytes 2.6 1.0-5.5 #) [facility] CenterHllansuUAAHBHAGAY8377-70-07 04:37:00 Test Item Value Reference Range Interpretation Comments Monocytes # (test code = Monocytes #) 0.8 <=0.8 [place] 358240-02-08 04:37:00 Test Item Value Reference Range Interpretation Comments Eosinophils # (test code = Eosinophils 0.3 <=0.5 #) [facility] CenterCphpkoxRAUXBRECLD2463-80-63 04:37:00 Test Item Value Reference Range Interpretation Comments Basophils # (test code = Basophils #) 0.1 <=0.2 [facility]2016-10-28 11:00:00 Test Item Value Reference Range Interpretation Comments eGFR (test code = eGFR) 88 [facility]2016-10-28 11:00:00 Test Item Value Reference Range Interpretation Comments Bili Total (test code = Bili Total) 0.3 0.2-1.3 [facility]2016-10-28 11:00:00 Test Item Value Reference Range Interpretation Comments AST (test code = AST) 22 <=37 [facility]2016-10-28 11:00:00 Test Item Value Reference Range Interpretation Comments ALT (test code = ALT) 37 <=65 [facility]2016-10-28 11:00:00 Test Item Value Reference Range Interpretation Comments Albumin Lvl (test code = Albumin Lvl) 2.6 3.5-5.0 [facility]2016-10-28 11:00:00 Test Item Value Reference Range Interpretation Comments Alk Phos (test code = Alk Phos) 103 39-136 [facility]2016-10-28 11:00:00 Test Item Value Reference Range Interpretation Comments CO2 (test code = CO2) 28 24-32 [facility]2016-10-28 11:00:00 Test Item Value Reference Range Interpretation Comments Chloride Lvl (test code = Chloride Lvl) 102 95-109 [facility]2016-10-28 11:00:00 Test Item Value Reference Range Interpretation Comments Potassium Lvl (test code = Potassium 4.0 3.5-5.1 Lvl) [facility]2016-10-28 11:00:00 Test Item Value Reference Range Interpretation Comments Total Protein (test code = Total 6.6 6.4-8.4 Protein) [facility]2016-10-28 11:00:00 Test Item Value Reference Range Interpretation Comments Calcium Lvl (test code = Calcium Lvl) 8.2 8.5-10.5 [facility]2016-10-28 11:00:00 Test Item Value Reference Range Interpretation Comments Sodium Lvl (test code = Sodium Lvl) 139 135-145 [facility]2016-10-28 11:00:00 Test Item Value Reference Range Interpretation Comments Creatinine Lvl (test code = Creatinine 1.00 0.50-1.40 Lvl) [facility]2016-10-28 11:00:00 Test Item Value Reference Range Interpretation Comments BUN (test code = BUN) 14 - [facility]2016-10-28 11:00:00 Test Item Value Reference Range Interpretation Comments Glucose Lvl (test code = Glucose Lvl) 130 70-99 [facility]2016-10-28 11:00:00 Test Item Value Reference Range Interpretation Comments A/G Ratio (test code = A/G Ratio) 0.6 0.7-1.6 [facility]2016-10-28 11:00:00 Test Item Value Reference Range Interpretation Comments Globulin (test code = Globulin) 4.0 2.7-4.2 [facility]2016-10-28 11:00:00 Test Item Value Reference Range Interpretation Comments B/C Ratio (test code = B/C Ratio) 14 - [facility]2016-10-28 11:00:00 Test Item Value Reference Range Interpretation Comments AGAP (test code = AGAP) 13.0 10.0-20.0 [facility] CenterAfmghssIEHEVUMHVW3330-86-27 11:00:00 Test Item Value Reference Range Interpretation Comments PTT (test code = PTT) 92.9 s 22.9-35.8 [facility] CenterIcteqksHHLTFFCTWT6558-31-38 11:00:00 Test Item Value Reference Range Interpretation Comments Eosinophils # (test code = Eosinophils 0.3 <=0.5 #) [facility] CenterAyedxrqVOMDRXQSNW5339-35-95 11:00:00 Test Item Value Reference Range Interpretation Comments Basophils # (test code = Basophils #) 0.1 <=0.2 [facility] CenterKpgvqpmJJAFZNZCLI9581-74-24 11:00:00 Test Item Value Reference Range Interpretation Comments Microcyte (test code = 1+ *ABN*(12/31/15 Microcyte) 6:00 AM) [facility] CenterIteehbvEENSNZAQUI1210-48-29 11:00:00 Test Item Value Reference Range Interpretation Comments Monocytes # (test code = Monocytes #) 0.8 <=0.8 [facility] CenterSgemfoiGYGCOEZBZV0264-82-74 11:00:00 Test Item Value Reference Range Interpretation Comments Monocytes (test code = Monocytes) 9.9 2.0-12.0 [facility] CenterZmhtjluOJJFUDUQLJ7538-22-32 11:00:00 Test Item Value Reference Range Interpretation Comments Eosinophils (test code = Eosinophils) 4.0 <=4.0 [facility] CenterRukdqwnGMAZDPWHMU3978-83-61 11:00:00 Test Item Value Reference Range Interpretation Comments Basophils (test code = Basophils) 1.1 <=1.0 [facility] CenterYitgmhaYVOHBCNOXM8537-05-84 11:00:00 Test Item Value Reference Range Interpretation Comments Segs-Bands # (test code = Segs-Bands #) 5.0 1.5-8.1 [facility] CenterIiyztfaFWYPBBEZWR4845-97-40 11:00:00 Test Item Value Reference Range Interpretation Comments Lymphocytes # (test code = Lymphocytes 1.6 1.0-5.5 #) [facility] CenterAdbqbetQMNGVPLHRR3526-90-07 11:00:00 Test Item Value Reference Range Interpretation Comments Segs (test code = Segs) 64.5 45.0-75.0 [facility] CenterLrfnxuaQCSIRWKPRB1282-28-65 11:00:00 Test Item Value Reference Range Interpretation Comments Lymphocytes (test code = Lymphocytes) 20.5 20.0-40.0 [facility] CenterYwixijxIBVHYXLIXW2286-03-82 11:00:00 Test Item Value Reference Range Interpretation Comments Platelet (test code = Platelet) 331 133-450 [facility] CenterJqckqbdVAIFRATDFN6369-96-45 11:00:00 Test Item Value Reference Range Interpretation Comments MPV (test code = MPV) 8.1 7.4-10.4 [facility] CenterHwwrxnjLQZMYOVNZA6839-17-27 11:00:00 Test Item Value Reference Range Interpretation Comments MCV (test code = MCV) 76.9 80.0-94.0 [facility] CenterQzehlsnVSJGJMAQMT7144-03-65 11:00:00 Test Item Value Reference Range Interpretation Comments Hct (test code = Hct) 33.5 42.0-54.0 [facility] CenterFhrgoykGQPBZSCHAS0536-57-31 11:00:00 Test Item Value Reference Range Interpretation Comments MCHC (test code = MCHC) 31.4 32.0-36.0 [facility] CenterQiqlqjkTPHTVIMTYY1901-72-83 11:00:00 Test Item Value Reference Range Interpretation Comments MCH (test code = MCH) 24.2 pg 27.0-31.0 [facility] CenterYgcbtszRROGSXIVYC0287-29-17 11:00:00 Test Item Value Reference Range Interpretation Comments RDW (test code = RDW) 15.9 11.5-14.5 [facility] CenterNvdwuamTBXGVGBSQU7884-07-80 11:00:00 Test Item Value Reference Range Interpretation Comments WBC (test code = WBC) 7.8 3.7-10.4 [facility] CenterSjklylrXJOTMQCLOV2956-70-87 11:00:00 Test Item Value Reference Range Interpretation Comments RBC (test code = RBC) 4.36 4.70-6.10 [facility] CenterWtfawufCKSEEZPCOB8560-67-49 11:00:00 Test Item Value Reference Range Interpretation Comments Hgb (test code = Hgb) 10.5 14.0-18.0 [facility] CenterNbghsqlGHGDHZAHBN1321-61-30 11:00:00 Test Item Value Reference Range Interpretation Comments INR (test code = INR) 2.09 0.85-1.17 [facility] CenterPklvezqERKVQCDGGN4819-87-99 11:00:00 Test Item Value Reference Range Interpretation Comments PT (test code = PT) 23.8 s 12.0-14.7 [facility] CenterCvbicduBPANWPLGNN1172-86-23 10:46:00 Test Item Value Reference Range Interpretation Comments MPV (test code = MPV) 8.0 7.4-10.4 [facility] CenterKeozgngMMKOIFEHMS2373-17-89 10:46:00 Test Item Value Reference Range Interpretation Comments Platelet (test code = Platelet) 312 133-450 [facility] CenterZhazafnHTTVGIVBZK2358-38-22 10:46:00 Test Item Value Reference Range Interpretation Comments MCH (test code = MCH) 25.0 pg 27.0-31.0 [facility] CenterHmpskrcTFUQATEBLD7297-04-81 10:46:00 Test Item Value Reference Range Interpretation Comments Hct (test code = Hct) 33.1 42.0-54.0 [facility] CenterSlvelrsQAVBCZSSVN7577-77-80 10:46:00 Test Item Value Reference Range Interpretation Comments MCHC (test code = MCHC) 32.8 32.0-36.0 [facility] CenterAhnrcdxWUSRWOWATS9426-50-89 10:46:00 Test Item Value Reference Range Interpretation Comments MCV (test code = MCV) 76.2 80.0-94.0 [facility] CenterCzqivqoZKLCGNHLXJ5948-72-06 10:46:00 Test Item Value Reference Range Interpretation Comments RDW (test code = RDW) 15.8 11.5-14.5 [facility] CenterGoxamefEKFGSIGEHZ5825-23-70 10:46:00 Test Item Value Reference Range Interpretation Comments RBC (test code = RBC) 4.35 4.70-6.10 [facility] CenterKuizylsBNWYZUPPOG0355-40-17 10:46:00 Test Item Value Reference Range Interpretation Comments Hgb (test code = Hgb) 10.8 14.0-18.0 [facility] CenterYkhsdfzQMCXMPHSNF6645-34-49 10:46:00 Test Item Value Reference Range Interpretation Comments WBC (test code = WBC) 7.6 3.7-10.4 [facility] CenterBbqqvcpILKEFLOSNB8196-85-99 10:46:00 Test Item Value Reference Range Interpretation Comments PT (test code = PT) 21.5 s 12.0-14.7 [facility] CenterAzxfupfSYZLLFFSGW4278-32-68 10:46:00 Test Item Value Reference Range Interpretation Comments INR (test code = INR) 1.83 0.85-1.17 [facility] CenterFireamiATMWPXNVNQ5279-36-70 10:46:00 Test Item Value Reference Range Interpretation Comments Basophils (test code = Basophils) 0.5 <=1.0 [place] 123516-10-27 10:46:00 Test Item Value Reference Range Interpretation Comments Eosinophils (test code = Eosinophils) 4.0 <=4.0 [facility] CenterFhchzlqBOOLYJKEFX4230-21-90 10:46:00 Test Item Value Reference Range Interpretation Comments Monocytes (test code = Monocytes) 9.8 2.0-12.0 [facility] CenterKztldanESTGJRFHJA9641-57-44 10:46:00 Test Item Value Reference Range Interpretation Comments Segs (test code = Segs) 62.9 45.0-75.0 [facility] CenterEwkkrvdLNYXHWAXMS3600-50-00 10:46:00 Test Item Value Reference Range Interpretation Comments Lymphocytes (test code = Lymphocytes) 22.8 20.0-40.0 [facility] CenterHazcthpKGFGYMWMON8088-98-11 10:46:00 Test Item Value Reference Range Interpretation Comments Monocytes # (test code = Monocytes #) 0.7 <=0.8 [facility] CenterKgkvhglSRZRNTWIGH3669-90-81 10:46:00 Test Item Value Reference Range Interpretation Comments Microcyte (test code = 1+ *ABN*(12/30/15 Microcyte) 5:46 AM) [facility] CenterEwzrnboRJMEAGFIVB8479-63-12 10:46:00 Test Item Value Reference Range Interpretation Comments Eosinophils # (test code = Eosinophils 0.3 <=0.5 #) [facility] CenterOjunsaoFBCCSDBBYU9525-87-72 10:46:00 Test Item Value Reference Range Interpretation Comments Segs-Bands # (test code = Segs-Bands #) 4.8 1.5-8.1 [facility] CenterFbmlcitTPMABVCDLY6603-79-97 10:46:00 Test Item Value Reference Range Interpretation Comments Lymphocytes # (test code = Lymphocytes 1.7 1.0-5.5 #) [facility] CenterMahdoqoARLMIWELKV6870-03-72 10:46:00 Test Item Value Reference Range Interpretation Comments PTT (test code = PTT) 70.9 s 22.9-35.8 [facility] HospitalEqyvkrzWSGDQSDPYQXX5861-65-52 12:14:00 Test Item Value Reference Range Interpretation Comments AGAP (test code = AGAP) 12.9 10.0-20.0 [facility] HospitalNdphqluBHLJMUOCARBW1250-34-45 12:14:00 Test Item Value Reference Range Interpretation Comments Creatinine Lvl (test code = Creatinine 1.10 0.50-1.40 Lvl) [facility] HospitalPwjrildWNTIBHUOPKRN7143-91-86 12:14:00 Test Item Value Reference Range Interpretation Comments BUN (test code = BUN) 13 7- [facility] HospitalPvowfeuAYAQGZAGMSUQ5327-85-19 12:14:00 Test Item Value Reference Range Interpretation Comments Glucose Lvl (test code = Glucose Lvl) 108 70-99 [facility] HospitalYbijuxlJNQBNWAVRQLP5652-91-59 12:14:00 Test Item Value Reference Range Interpretation Comments eGFR (test code = eGFR) 78 [facility] HospitalHgvnqfrWBMONIIFRDBN9568-36-17 12:14:00 Test Item Value Reference Range Interpretation Comments Calcium Lvl (test code = Calcium Lvl) 8.4 8.5-10.5 [facility] HospitalFgdmhpuALQFTVBGGUBB7383-35-70 12:14:00 Test Item Value Reference Range Interpretation Comments Chloride Lvl (test code = Chloride Lvl) 102 95-109 [facility] HospitalYocvireOTKNVYAMPGWB1784-77-90 12:14:00 Test Item Value Reference Range Interpretation Comments Potassium Lvl (test code = Potassium 3.9 3.5-5.1 Lvl) [facility] HospitalSxuwkjdEPIMRHJOANVK5203-16-83 12:14:00 Test Item Value Reference Range Interpretation Comments Sodium Lvl (test code = Sodium Lvl) 137 135-145 [facility] HospitalUdfziczBWZBPBMEFVGU2875-92-19 12:14:00 Test Item Value Reference Range Interpretation Comments CO2 (test code = CO2) 26 24-32 [facility] CenterVajvwacDXPVLCTWNT8865-77-86 12:14:00 Test Item Value Reference Range Interpretation Comments Segs-Bands # (test code = Segs-Bands #) 5.1 1.5-8.1 [facility] CenterHmtjyrlEDXWZXLDMC7441-11-87 12:14:00 Test Item Value Reference Range Interpretation Comments Lymphocytes # (test code = Lymphocytes 1.9 1.0-5.5 #) [facility] CenterBtjyxdrYFPJDFEAFF5069-95-33 12:14:00 Test Item Value Reference Range Interpretation Comments Monocytes # (test code = Monocytes #) 0.9 <=0.8 [facility] CenterNefhowcPQESWRMEZC2964-29-79 12:14:00 Test Item Value Reference Range Interpretation Comments Eosinophils (test code = Eosinophils) 4.8 <=4.0 [facility] CenterGcaacltUBUQCTWWQI6253-80-24 12:14:00 Test Item Value Reference Range Interpretation Comments Basophils (test code = Basophils) 0.7 <=1.0 [facility] CenterAuanamnTSFQVAOWBM3521-48-35 12:14:00 Test Item Value Reference Range Interpretation Comments Eosinophils # (test code = Eosinophils 0.4 <=0.5 #) [facility] CenterXlzgjzoJFVWPONKSL3411-11-72 12:14:00 Test Item Value Reference Range Interpretation Comments Basophils # (test code = Basophils #) 0.1 <=0.2 [facility] CenterUhgndxaNAJNQWWJAX4954-48-01 12:14:00 Test Item Value Reference Range Interpretation Comments Microcyte (test code = 1+ *ABN*(12/29/15 Microcyte) 7:14 AM) [facility] CenterCwmlovoHYLBFISUQF0423-24-51 12:14:00 Test Item Value Reference Range Interpretation Comments Monocytes (test code = Monocytes) 10.6 2.0-12.0 [facility] CenterLhecjyaCPHJAVXHEG5195-12-77 12:14:00 Test Item Value Reference Range Interpretation Comments Lymphocytes (test code = Lymphocytes) 23.2 20.0-40.0 [facility] CenterPavzzigFOJLKLESMK0957-36-54 12:14:00 Test Item Value Reference Range Interpretation Comments Segs (test code = Segs) 60.7 45.0-75.0 [facility] CenterWwpqmteRCSDVSJSTZ4863-99-41 12:14:00 Test Item Value Reference Range Interpretation Comments PT (test code = PT) 19.8 s 12.0-14.7 [facility] CenterXgbpvtxMSJQQQOTQB5583-80-79 12:14:00 Test Item Value Reference Range Interpretation Comments INR (test code = INR) 1.65 0.85-1.17 [facility] CenterMjjeznxIZTTIICJLV9498-83-18 12:14:00 Test Item Value Reference Range Interpretation Comments MCH (test code = MCH) 24.2 pg 27.0-31.0 [facility] CenterCtezjhvBYYOYALZBT7280-27-12 12:14:00 Test Item Value Reference Range Interpretation Comments RBC (test code = RBC) 4.58 4.70-6.10 [facility] CenterThbalbjYXPKJFMUBQ7019-92-63 12:14:00 Test Item Value Reference Range Interpretation Comments Hgb (test code = Hgb) 11.1 14.0-18.0 [facility] CenterBengwoiNUVULLHBNT0206-14-41 12:14:00 Test Item Value Reference Range Interpretation Comments Hct (test code = Hct) 35.2 42.0-54.0 [facility] CenterOoolbnkJVSDUCQYBT8561-60-24 12:14:00 Test Item Value Reference Range Interpretation Comments MCV (test code = MCV) 76.8 80.0-94.0 [facility] CenterGunfakxRITEOVQECD6593-50-96 12:14:00 Test Item Value Reference Range Interpretation Comments WBC (test code = WBC) 8.4 3.7-10.4 [facility] CenterVcswzqvGOQQRSZUOX1953-59-29 12:14:00 Test Item Value Reference Range Interpretation Comments Platelet (test code = Platelet) 299 133-450 [facility] CenterBlyrlxnFKOTMMQYDI2446-54-17 12:14:00 Test Item Value Reference Range Interpretation Comments RDW (test code = RDW) 15.8 11.5-14.5 [facility] CenterIzkmvizVNIEACZKIO7294-45-70 12:14:00 Test Item Value Reference Range Interpretation Comments MCHC (test code = MCHC) 31.6 32.0-36.0 [facility] CenterTmztmmgBOCETXRNYN7169-95-90 12:14:00 Test Item Value Reference Range Interpretation Comments MPV (test code = MPV) 8.6 7.4-10.4 [facility] CenterUcbkjeaORHPLTFXAL9019-14-32 12:14:00 Test Item Value Reference Range Interpretation Comments PTT (test code = PTT) 69.8 s 22.9-35.8 [facility] PHJHOTYLF3040-36-10 12:14:00 Test Item Value Reference Range Interpretation Comments Hgb A1C (test code = Hgb A1C) 6.3 [facility] HospitalGshddmhVIRJHTVVDAQA4905-15-02 11:09:00 Test Item Value Reference Range Interpretation Comments AGAP (test code = AGAP) 14.8 10.0-20.0 [facility] HospitalAnfcbvlVYZASYGYEBID7596-65-23 11:09:00 Test Item Value Reference Range Interpretation Comments eGFR (test code = eGFR) 88 [facility] HospitalXycfhwjGFXGACJUOMIQ9307-73-03 11:09:00 Test Item Value Reference Range Interpretation Comments Chloride Lvl (test code = Chloride Lvl) 102 95-109 [facility] HospitalJqcsrqtHUNGBKENQKAC0701-67-81 11:09:00 Test Item Value Reference Range Interpretation Comments Potassium Lvl (test code = Potassium 3.8 3.5-5.1 Lvl) [facility] HospitalFudkefuXBKUHGOQKOCM2968-00-16 11:09:00 Test Item Value Reference Range Interpretation Comments CO2 (test code = CO2) 26 24-32 [facility] HospitalEwyzqceTBLYQDPRCHOI2080-64-89 11:09:00 Test Item Value Reference Range Interpretation Comments Sodium Lvl (test code = Sodium Lvl) 139 135-145 [facility] HospitalNclpzkvDXHHJDGIUGCM6086-75-87 11:09:00 Test Item Value Reference Range Interpretation Comments Creatinine Lvl (test code = Creatinine 1.00 0.50-1.40 Lvl) [facility] HospitalSjvjregFCNEIYBVPBKF7605-58-72 11:09:00 Test Item Value Reference Range Interpretation Comments Glucose Lvl (test code = Glucose Lvl) 141 70-99 [facility] HospitalAwitychQLKTFYIQOIYP8816-53-06 11:09:00 Test Item Value Reference Range Interpretation Comments BUN (test code = BUN) 12 7-22 [facility] HospitalGsbpggeWIIEXUITRYJO0527-41-87 11:09:00 Test Item Value Reference Range Interpretation Comments Calcium Lvl (test code = Calcium Lvl) 8.4 8.5-10.5 [facility]VxmogjbWUDRKQLEZT0151-67-43 11:09:00 Test Item Value Reference Range Interpretation Comments Basophils # (test code = Basophils #) 0.1 <=0.2 [facility]XvmtqftOAGOFTTQFH1430-78-35 11:09:00 Test Item Value Reference Range Interpretation Comments IF Blk Ab (test code = IF Blk Ab) 0.9 <=1.1 [facility]2016-10-24 08:41:00 Test Item Value Reference Range Interpretation Comments AST (test code = AST) 39 <=37 [facility]2016-10-24 08:41:00 Test Item Value Reference Range Interpretation Comments Bili Total (test code = Bili Total) 0.6 0.2-1.3 [facility]2016-10-24 08:41:00 Test Item Value Reference Range Interpretation Comments Alk Phos (test code = Alk Phos) 105 39-136 [facility]2016-10-24 08:41:00 Test Item Value Reference Range Interpretation Comments Albumin Lvl (test code = Albumin Lvl) 2.8 3.5-5.0 [facility]2016-10-24 08:41:00 Test Item Value Reference Range Interpretation Comments Globulin (test code = Globulin) 3.4 2.7-4.2 [facility]2016-10-24 08:41:00 Test Item Value Reference Range Interpretation Comments ALT (test code = ALT) 62 <=65 [facility]2016-10-24 08:41:00 Test Item Value Reference Range Interpretation Comments A/G Ratio (test code = A/G Ratio) 0.8 0.7-1.6 [facility]2016-10-24 08:41:00 Test Item Value Reference Range Interpretation Comments Total Protein (test code = Total 6.2 6.4-8.4 Protein) [facility]2016-10-24 08:41:00 Test Item Value Reference Range Interpretation Comments B/C Ratio (test code = B/C Ratio) 15 6-25 [facility]2016-10-23 15:54:00 Test Item Value Reference Range Interpretation Comments Folate Lvl (test code = Folate Lvl) 5.9 [facility]2016-10-23 15:54:00 Test Item Value Reference Range Interpretation Comments Vitamin B12 Lvl (test code = Vitamin 201 056-4503 B12 Lvl) [facility]2016-10-23 15:54:00 Test Item Value Reference Range Interpretation Comments Ferritin Lvl (test code = Ferritin Lvl) [facility]2016-10-23 15:54:00 Test Item Value Reference Range Interpretation Comments UIBC (test code = UIBC) 331 110-370 [facility]2016-10-23 15:54:00 Test Item Value Reference Range Interpretation Comments TIBC (test code = TIBC) 373 228-428 [facility]2016-10-23 15:54:00 Test Item Value Reference Range Interpretation Comments % Satur Fe (test code = % Satur Fe) 11 [facility]2016-10-23 15:54:00 Test Item Value Reference Range Interpretation Comments Iron (test code = Iron) 42 45-160 [facility]2016-10-23 09:39:00 Test Item Value Reference Range Interpretation Comments Ferritin Lvl (test code = Ferritin Lvl) [facility]2016-10-23 09:39:00 Test Item Value Reference Range Interpretation Comments % Satur Fe (test code = % Satur Fe) 10 [facility]2016-10-23 09:39:00 Test Item Value Reference Range Interpretation Comments UIBC (test code = UIBC) 341 110-370 [facility]2016-10-23 09:39:00 Test Item Value Reference Range Interpretation Comments TIBC (test code = TIBC) 377 228-428 [facility]2016-10-23 09:39:00 Test Item Value Reference Range Interpretation Comments Iron (test code = Iron) 36 45-160 [facility] BQSQCCZ4041-95-24 09:39:00 Test Item Value Reference Range Interpretation Comments BNP (test code = BNP) 39 [facility]2016-10-23 09:39:00 Test Item Value Reference Range Interpretation Comments Lipase Lvl (test code = Lipase Lvl) 131 73-393 [facility]2016-10-23 09:39:00 Test Item Value Reference Range Interpretation Comments Albumin Lvl (test code = Albumin Lvl) 2.8 3.5-5.0 [facility]2016-10-23 09:39:00 Test Item Value Reference Range Interpretation Comments ALT (test code = ALT) 51 <=65 [facility]2016-10-23 09:39:00 Test Item Value Reference Range Interpretation Comments AST (test code = AST) 35 <=37 [facility]2016-10-23 09:39:00 Test Item Value Reference Range Interpretation Comments Total Protein (test code = Total 6.5 6.4-8.4 Protein) [facility]2016-10-23 09:39:00 Test Item Value Reference Range Interpretation Comments B/C Ratio (test code = B/C Ratio) 18 6-25 [facility]2016-10-23 09:39:00 Test Item Value Reference Range Interpretation Comments Globulin (test code = Globulin) 3.7 2.7-4.2 [facility]2016-10-23 09:39:00 Test Item Value Reference Range Interpretation Comments Alk Phos (test code = Alk Phos) 90 39-136 [facility]2016-10-23 09:39:00 Test Item Value Reference Range Interpretation Comments Bili Total (test code = Bili Total) 0.3 0.2-1.3 [facility]2016-10-23 09:39:00 Test Item Value Reference Range Interpretation Comments A/G Ratio (test code = A/G Ratio) 0.8 0.7-1.6 [place] [address]-10-23 09:39:00 Test Item Value Reference Range Interpretation Comments LDL (Calculated) (test code = LDL 73 (Calculated)) [address]10-23 09:39:00 Test Item Value Reference Range Interpretation Comments CHD Risk (test code = CHD Risk) 4.03 4.00-7.30 [place] [address]-10-23 09:39:00 Test Item Value Reference Range Interpretation Comments HDL (test code = HDL) 35 [address]10-23 09:39:00 Test Item Value Reference Range Interpretation Comments VLDL (test code = VLDL) 33 [place] [address]-10-23 09:39:00 Test Item Value Reference Range Interpretation Comments Chol (test code = Chol) [address]10-23 09:39:00 Test Item Value Reference Range Interpretation Comments Trig (test code = Trig) 164 [facility]QwatpiwNKEZFWYJUQ0446-52-40 17:22:00 Test Item Value Reference Range Interpretation Comments Protein S Func (test code = Protein S 108 54-137 Func) [facility] CenterYdpavciDNLGNJZGGK5016-88-23 17:22:00 Test Item Value Reference Range Interpretation Comments Protein C Func (test code = Protein C 158 72-147 Func) [facility] CenterHjnxlfqHOYFNDGAVH5490-93-27 17:22:00 Test Item Value Reference Range Interpretation Comments F5 Leiden PCR (test Heterozygous code = F5 Leiden *ABN*(12/25/15 12:22 PM) PCR) [place] [address]-10-22 17:22:00 Test Item Value Reference Range Interpretation Comments F5 Leiden Intrp FACTOR V LEIDEN: (test code = F5 Heterozygous Leiden Intrp) INTERPRETATION: Molecular analysis for the Factor V Leiden, R506Q mutation indicated that the patient was heterozygous (carries one copy) for the mutation. Final diagnosis requires correlation with clinical history and other pertinent laboratory findings. The Factor V Leiden, R506Q mutation is a common genetic risk factor for thrombosis and is associated with activated protein C resistance. Individuals heterozygous for the mutation have an approximately 4-to 7- or 8- fold increased risk of venous thrombosis compared to individuals without the mutation. In addition, 1-10% of symptomatic carriers of the Factor V Leiden mutation also carry the Factor II(Prothrombin) 78506T>A mutation(compound heterozygous). These individuals have a 20-fold more likely chance of having a venous thrombosis than individuals without either mutation and have a 50- to 80-fold relative risk of thrombosis as compared to hemozygotes for the Factor V Leiden mutation. Where appropriate, medical consultation and/or genetic counseling should be offered to inform and explain the risk implications and genetic implications of these test results. ASSAY LIMITATIONS: The assay uses the FDA-cleared [employer] Factor V Leiden IVD(Polymerase chain reaction/FRET detection)kit, Mi[employer] Instrument and the [employer] LightCycler 1.2 Instrument. A 222-bp fragment of Factor V gene (FV) containing the Factor V Leiden sequence is amplified in the assay. The assay is designed to detect the G 1691A mutation only. Other causes of activated protein C resistance and hereditary forms of venous thrombosis are not ruled out. However, the melting curve analysis may implicate the presence of possible rare mutations at position 1689, 1692 and 1696. (Further testing will be recommended in the report). A minimum detection level is 202 copies of Factor V Leiden per reaction. The level of agreement between the Factor V Leiden Kit and sequence analysis was 99.4%. The test result must be interpreted along with the patient's clinical history and relevant laboratory data. This assay has been validated by [facility]. [facility] [id number] 03:31:00 Test Item Value Reference Range Interpretation Comments CK MB (test code = CK MB) 1.0 0.5-3.6 [facility] QZVZICP8410-87-50 03:31:00 Test Item Value Reference Range Interpretation Comments Troponin-I (test code = Troponin-I) no gt <=0.40 [facility] [id number] 03:31:00 Test Item Value Reference Range Interpretation Comments Total CK (test code = Total CK) 111 12-191 [facility] QJCYMWM7859-37-51 03:31:00 Test Item Value Reference Range Interpretation Comments CK MB Index (test code = CK MB Index) 0.9 <=2.5 [facility] HospitalXmmuuzyQPXOFFZEQJ6027-13-25 03:31:00 Test Item Value Reference Range Interpretation Comments D-Dimer (test code = D-Dimer) 0.88 [facility] ZCNBMOY1471-40-52 08:14:00 Test Item Value Reference Range Interpretation Comments CK-MB INDEX (test code = CK-MB INDEX) 0.6 <=2.5 [facility] PJDEFIO1079-94-54 08:14:00 Test Item Value Reference Range Interpretation Comments CK MB (test code = CK MB) 0.7 0.5-3.6 [facility] DMYXEIH8493-18-33 08:14:00 Test Item Value Reference Range Interpretation Comments Troponin-I (test code = Troponin-I) no gt <=0.40 [facility] CenterCAR[facility] DZZJZBX4776-74-88 08:14:00 Test Item Value Reference Range Interpretation Comments Total CK (test code = Total CK) 117 12-191 [facility] CampusYffkuplLHKSFV9033-72-59 08:14:00 Test Item Value Reference Range Interpretation Comments CHD Risk (test code = CHD Risk) 3.78 4.00-7.30 [facility] CampusBgafwfbOCEWWX0292-10-34 08:14:00 Test Item Value Reference Range Interpretation Comments LDL (Calculated) (test code = LDL 79 (Calculated)) [facility] CampusBzzjzgcTOPKXO7874-84-11 08:14:00 Test Item Value Reference Range Interpretation Comments HDL (test code = HDL) 36 [facility] CampusShhypmeBHYBQP5869-52-05 08:14:00 Test Item Value Reference Range Interpretation Comments Chol (test code = Chol) 136 [facility] CampusMgrckqdXKDSJY1177-21-09 08:14:00 Test Item Value Reference Range Interpretation Comments Trig (test code = Trig) 106 [facility] CampusDagxexeAGHXED0963-23-55 08:14:00 Test Item Value Reference Range Interpretation Comments VLDL (test code = VLDL) 21 [facility] CampusJfcnsveXEEDRI1854-81-71 08:14:00 Test Item Value Reference Range Interpretation Comments VLDL (test code = VLDL) 22 [facility] CampusVhmwrasKAEKJZ6559-23-44 08:14:00 Test Item Value Reference Range Interpretation Comments LDL (Calculated) (test code = LDL 77 (Calculated)) [facility] CampusZpvqpcmHYEZJZ5917-74-90 08:14:00 Test Item Value Reference Range Interpretation Comments CHD Risk (test code = CHD Risk) 3.75 4.00-7.30 [facility] CampusWltshssTWTNKG0532-75-15 08:14:00 Test Item Value Reference Range Interpretation Comments HDL (test code = HDL) 36 [facility] CampusInjycqfIWVPPV1145-64-52 08:14:00 Test Item Value Reference Range Interpretation Comments Chol (test code = Chol) 135 [facility] CampusNvmtzppVVJAYQ1893-59-08 08:14:00 Test Item Value Reference Range Interpretation Comments Trig (test code = Trig) 110 [facility] PIJPUDQYF1914-32-47 08:14:00 Test Item Value Reference Range Interpretation Comments Hgb A1C (test code = Hgb A1C) 6.3 [facility] CampusRethink AutismCARBeMyEyeAC GDXYBWE8339-14-84 02:14:00 Test Item Value Reference Range Interpretation Comments CK-MB INDEX (test code = CK-MB INDEX) 0.4 <=2.5 [facility] CampusEmployyd.comAC WECAHDU9690-21-29 02:14:00 Test Item Value Reference Range Interpretation Comments Total CK (test code = Total CK) 219 12-191 [facility] CampusEmployyd.com CLZHSMA3406-82-04 02:14:00 Test Item Value Reference Range Interpretation Comments Troponin-I (test code = Troponin-I) no gt <=0.40 [facility] CampuspeerTransfer IGUPRUL6784-88-16 02:14:00 Test Item Value Reference Range Interpretation Comments CK MB (test code = CK MB) 0.8 0.5-3.6 [facility] [employer] LUVQU8655-85-01 02:14:00 Test Item Value Reference Range Interpretation Comments eGFR (test code = eGFR) 78 [facility] CampusShopo AYMQW9682-71-03 02:14:00 Test Item Value Reference Range Interpretation Comments ASPARTATE TRANSAMINASE (test code = 54 <=37 ASPARTATE TRANSAMINASE) [facility] [employer] [id number] 02:14:00 Test Item Value Reference Range Interpretation Comments CO2 (test code = CO2) 26 24-32 [facility] [employer] [id number] 02:14:00 Test Item Value Reference Range Interpretation Comments Chloride Lvl (test code = Chloride Lvl) 108 95-109 [facility] CampusShopo RNDCH9083-72-59 02:14:00 Test Item Value Reference Range Interpretation Comments Sodium Lvl (test code = Sodium Lvl) 141 135-145 [facility] CampusShopo XQEZV0443-99-39 02:14:00 Test Item Value Reference Range Interpretation Comments Total Protein (test code = Total 7.3 6.4-8.4 Protein) [facility]2016-10-01 02:14:00 Test Item Value Reference Range Interpretation Comments Bili Total (test code = Bili Total) 0.4 0.2-1.3 [facility]2016-10-01 02:14:00 Test Item Value Reference Range Interpretation Comments Calcium Lvl (test code = Calcium Lvl) 8.1 8.5-10.5 [facility]2016-10-01 02:14:00 Test Item Value Reference Range Interpretation Comments BUN (test code = BUN) 18 7-22 [facility]2016-10-01 02:14:00 Test Item Value Reference Range Interpretation Comments Creatinine Lvl (test code = Creatinine 1.11 0.50-1.40 Lvl) [facility]2016-10-01 02:14:00 Test Item Value Reference Range Interpretation Comments Glucose Lvl (test code = Glucose Lvl) 134 70-99 [facility]2016-10-01 02:14:00 Test Item Value Reference Range Interpretation Comments Albumin Lvl (test code = Albumin Lvl) 3.1 3.5-5.0 [facility]2016-10-01 02:14:00 Test Item Value Reference Range Interpretation Comments Alk Phos (test code = Alk Phos) 101 39-136 [facility]2016-10-01 02:14:00 Test Item Value Reference Range Interpretation Comments ALANINE AMINOTRANSFERASE (test code = 41 <=65 ALANINE AMINOTRANSFERASE) [facility]2016-10-01 02:14:00 Test Item Value Reference Range Interpretation Comments A/G Ratio (test code = A/G Ratio) 0.7 0.7-1.6 [facility]2016-10-01 02:14:00 Test Item Value Reference Range Interpretation Comments Globulin (test code = Globulin) 4.2 2.7-4.2 [facility]2016-10-01 02:14:00 Test Item Value Reference Range Interpretation Comments B/C Ratio (test code = B/C Ratio) 16 6-25 [facility]2016-10-01 02:14:00 Test Item Value Reference Range Interpretation Comments AGAP (test code = AGAP) 11.0 10.0-20.0 [facility]2016-10-01 02:14:00 Test Item Value Reference Range Interpretation Comments Potassium Lvl (test code = Potassium 4.0 3.5-5.1 Lvl) [facility] CenterOushmceUHVOPTVZPG0548-64-17 02:14:00 Test Item Value Reference Range Interpretation Comments Monocytes # (test code = Monocytes #) 0.7 <=0.8 [facility] CenterMxsodzuODUJPQOKTI1263-51-57 02:14:00 Test Item Value Reference Range Interpretation Comments Segs-Bands # (test code = Segs-Bands #) 5.9 1.5-8.1 [facility] CenterAvvfhahSPOBKCWHGW9223-02-39 02:14:00 Test Item Value Reference Range Interpretation Comments Lymphocytes # (test code = Lymphocytes 2.3 1.0-5.5 #) [facility] CenterEpqviarOXAWLUXCZT2668-81-05 02:14:00 Test Item Value Reference Range Interpretation Comments Eosinophils (test code = Eosinophils) 2.9 <=4.0 [facility] CenterOoikqtsYRNTNMLDKX6936-66-65 02:14:00 Test Item Value Reference Range Interpretation Comments Basophils (test code = Basophils) 1.2 <=1.0 [facility] CenterGuknthfGIXEAHELQS2415-75-58 02:14:00 Test Item Value Reference Range Interpretation Comments Lymphocytes (test code = Lymphocytes) 24.4 20.0-40.0 [facility] CenterRynbtmrTDAHSHMXXC6684-75-62 02:14:00 Test Item Value Reference Range Interpretation Comments Monocytes (test code = Monocytes) 7.9 2.0-12.0 [facility] CenterXwgcoygWXKWEJHEUP6204-22-69 02:14:00 Test Item Value Reference Range Interpretation Comments Plt Morph (test code = Normal (12/03/15 9:14 Plt Morph) PM) [facility] CenterGktuvnkPYJZDDWLMG0040-90-61 02:14:00 Test Item Value Reference Range Interpretation Comments Segs (test code = Segs) 63.6 45.0-75.0 [facility] CenterPkwzjxfCPBASFVYYA9200-69-78 02:14:00 Test Item Value Reference Range Interpretation Comments Microcyte (test code = 1+ *ABN*(12/03/15 Microcyte) 9:14 PM) [facility] CenterGemluhdAKXRRTFJUI4685-85-78 02:14:00 Test Item Value Reference Range Interpretation Comments Eosinophils # (test code = Eosinophils 0.3 <=0.5 #) [facility] CenterYwmvxyjIVCBAJRCCB3619-95-70 02:14:00 Test Item Value Reference Range Interpretation Comments Basophils # (test code = Basophils #) 0.1 <=0.2 [facility] CenterJkyjndwOAGCDQQKUE4195-98-59 02:14:00 Test Item Value Reference Range Interpretation Comments PROTIME (test code = PROTIME) 11.4 s 12.0-14.7 [facility] CenterAxnpzecCGFJUZAVSB2552-99-86 02:14:00 Test Item Value Reference Range Interpretation Comments INR (test code = INR) 0.81 0.85-1.17 [facility] CenterGjbcjdcDUZTHNSESH6598-46-09 02:14:00 Test Item Value Reference Range Interpretation Comments MPV (test code = MPV) 8.2 7.4-10.4 [facility] CenterRblpispBZBDLSIRMF5770-80-02 02:14:00 Test Item Value Reference Range Interpretation Comments Platelet (test code = Platelet) 300 133-450 [facility] CenterNylsthtDERFCCGEQZ0609-47-80 02:14:00 Test Item Value Reference Range Interpretation Comments RDW (test code = RDW) 15.7 11.5-14.5 [facility] CenterYfwnjfvPDIEQQDNBR2290-30-41 02:14:00 Test Item Value Reference Range Interpretation Comments MCH (test code = MCH) 25.4 pg 27.0-31.0 [facility] CenterWmyaxroWVKNCLHWFI7134-89-84 02:14:00 Test Item Value Reference Range Interpretation Comments MCHC (test code = MCHC) 32.5 32.0-36.0 [facility] CenterXrnumseJUAEENVXSP7090-70-74 02:14:00 Test Item Value Reference Range Interpretation Comments MCV (test code = MCV) 78.1 80.0-94.0 [facility] CenterDhnwxxkSCRHEBBVPN9074-40-29 02:14:00 Test Item Value Reference Range Interpretation Comments WBC X 10x3 (test code = WBC X 10x3) 9.3 3.7-10.4 [facility] CenterUrxwibjFNQMKWOPIL2574-61-94 02:14:00 Test Item Value Reference Range Interpretation Comments RBC X 10x6 (test code = RBC X 10x6) 4.73 4.70-6.10 [facility] CenterFbipbaeXSGDHYULVD2088-50-84 02:14:00 Test Item Value Reference Range Interpretation Comments Hgb (test code = Hgb) 12.0 14.0-18.0 [facility] CenterGmgxujkJNJOBLOQCH9665-57-74 02:14:00 Test Item Value Reference Range Interpretation Comments Hct (test code = Hct) 37.0 42.0-54.0 [facility] [employer]annCARBeMyEyeAC [id number] 14:25:00 Test Item Value Reference Range Interpretation Comments CK MB Index (test code = CK MB Index) 1.1 <=2.5 [facility] InstacartannCARBeMyEyeAC [id number] 14:25:00 Test Item Value Reference Range Interpretation Comments CK MB (test code = CK MB) 1.2 0.5-3.6 [facility] Dragon[facility] ZWHOYLE5748-26-37 14:25:00 Test Item Value Reference Range Interpretation Comments Total CK (test code = Total CK) 112 12-191 [facility]peer[facility] YGUZLCI6497-48-84 14:25:00 Test Item Value Reference Range Interpretation Comments Troponin-I (test code = Troponin-I) no gt <=0.40 [facility] XxktvddWBHGAP1743-84-72 14:25:00 Test Item Value Reference Range Interpretation Comments VLDL (test code = VLDL) 34 [facility] CampusHfgwmxyNIDLCK8884-68-64 14:25:00 Test Item Value Reference Range Interpretation Comments Trig (test code = Trig) 171 [facility] VzldcrpQWDBFW3161-55-83 14:25:00 Test Item Value Reference Range Interpretation Comments HDL (test code = HDL) 38 [facility] CampusKoydknqNBCZRD6671-55-75 14:25:00 Test Item Value Reference Range Interpretation Comments CHD Risk (test code = CHD Risk) 4.45 4.00-7.30 [facility] VbgnjboRWSNON1803-30-55 14:25:00 Test Item Value Reference Range Interpretation Comments Chol (test code = Chol) 169 [facility] CampusZowxdroWXRUSR4733-58-31 14:25:00 Test Item Value Reference Range Interpretation Comments LDL (Calculated) (test code = LDL 97 (Calculated)) [facility] CampusEmployyd.comAC APKXLFG2161-68-66 07:00:00 Test Item Value Reference Range Interpretation Comments CK MB (test code = CK MB) 1.4 0.5-3.6 [facility] [employer] ISISUJT8468-62-07 07:00:00 Test Item Value Reference Range Interpretation Comments CK MB Index (test code = CK MB Index) 1.0 <=2.5 [facility] [employer] [id number] 07:00:00 Test Item Value Reference Range Interpretation Comments Total CK (test code = Total CK) 146 12-191 [facility] [employer] SNTVMHR6085-05-21 07:00:00 Test Item Value Reference Range Interpretation Comments Troponin-I (test code = Troponin-I) no gt <=0.40 [facility] [employer] PBPWBFZ3287-80-25 00:54:00 Test Item Value Reference Range Interpretation Comments CK MB (test code = CK MB) 1.5 0.5-3.6 [facility] [employer] KFCVKAL8072-87-51 00:54:00 Test Item Value Reference Range Interpretation Comments Troponin-I (test code = Troponin-I) no gt <=0.40 [facility] [employer] [id number] 00:54:00 Test Item Value Reference Range Interpretation Comments Total CK (test code = Total CK) 195 12-191 [facility] TonZof2014-09-09 00:54:00 Test Item Value Reference Range Interpretation Comments CK MB Index (test code = CK MB Index) 0.8 <=2.5 [facility] [id number] 00:54:00 Test Item Value Reference Range Interpretation Comments Phosphorus (test code = Phosphorus) 3.2 2.5-4.5 [facility] [id number] 00:54:00 Test Item Value Reference Range Interpretation Comments Magnesium Lvl (test code = Magnesium 1.8 1.8-2.4 Lvl) [facility] [id number] 00:54:00 Test Item Value Reference Range Interpretation Comments Lipase Lvl (test code = Lipase Lvl) 188 73-393 [facility] [id number] 00:54:00 Test Item Value Reference Range Interpretation Comments eGFR (test code = eGFR) 59 [facility] [id number] 00:54:00 Test Item Value Reference Range Interpretation Comments Chloride Lvl (test code = Chloride Lvl) 107 95-109 [facility] [id number] 00:54:00 Test Item Value Reference Range Interpretation Comments Calcium Lvl (test code = Calcium Lvl) 8.6 8.5-10.5 [facility] [id number] 00:54:00 Test Item Value Reference Range Interpretation Comments Potassium Lvl (test code = Potassium 3.7 3.5-5.1 Lvl) [facility]2014-09-09 00:54:00 Test Item Value Reference Range Interpretation Comments Sodium Lvl (test code = Sodium Lvl) 140 135-145 [facility]2014-09-09 00:54:00 Test Item Value Reference Range Interpretation Comments CO2 (test code = CO2) 26 24-32 [facility]2014-09-09 00:54:00 Test Item Value Reference Range Interpretation Comments Albumin Lvl (test code = Albumin Lvl) 3.4 3.5-5.0 [facility]2014-09-09 00:54:00 Test Item Value Reference Range Interpretation Comments Total Protein (test code = Total 7.3 6.4-8.4 Protein) [facility]2014-09-09 00:54:00 Test Item Value Reference Range Interpretation Comments Glucose Lvl (test code = Glucose Lvl) 132 70-99 [facility]2014-09-09 00:54:00 Test Item Value Reference Range Interpretation Comments BUN (test code = BUN) 21 7-22 [facility]2014-09-09 00:54:00 Test Item Value Reference Range Interpretation Comments Globulin (test code = Globulin) 3.9 2.0-4.0 [facility]2014-09-09 00:54:00 Test Item Value Reference Range Interpretation Comments B/C Ratio (test code = B/C Ratio) 15 6-25 [facility]2014-09-09 00:54:00 Test Item Value Reference Range Interpretation Comments AST (test code = AST) 21 <=37 [place] [id number] 00:54:00 Test Item Value Reference Range Interpretation Comments Alk Phos (test code = Alk Phos) 77 39-136 [facility]2014-09-09 00:54:00 Test Item Value Reference Range Interpretation Comments Bili Total (test code = Bili Total) 0.5 0.2-1.3 [facility]2014-09-09 00:54:00 Test Item Value Reference Range Interpretation Comments AGAP (test code = AGAP) 10.7 10.0-20.0 [facility]2014-09-09 00:54:00 Test Item Value Reference Range Interpretation Comments Creatinine Lvl (test code = Creatinine 1.4 0.5-1.4 Lvl) [facility]2014-09-09 00:54:00 Test Item Value Reference Range Interpretation Comments A/G Ratio (test code = A/G Ratio) 0.9 0.7-1.6 [facility]2014-09-09 00:54:00 Test Item Value Reference Range Interpretation Comments ALT (test code = ALT) 40 <=65 [id number] 00:54:00 Test Item Value Reference Range Interpretation Comments Platelet (test code = Platelet) 265 133-450 [facility] CenterTfknxxfBTHACAPOWO1905-51-48 00:54:00 Test Item Value Reference Range Interpretation Comments RDW (test code = RDW) 14.2 11.5-14.5 [facility] [id number] 00:54:00 Test Item Value Reference Range Interpretation Comments MPV (test code = MPV) 8.3 7.4-10.4 [facility] CenterRelunxsPIGWFKWRDI6502-06-57 00:54:00 Test Item Value Reference Range Interpretation Comments MCH (test code = MCH) 29.0 pg 27.0-31.0 [facility] [id number] 00:54:00 Test Item Value Reference Range Interpretation Comments MCHC (test code = MCHC) 33.2 32.0-36.0 [facility] [id number] 00:54:00 Test Item Value Reference Range Interpretation Comments MCV (test code = MCV) 87.4 80.0-94.0 [facility] CenterRtjffykFYOCSFUSTX6969-51-19 00:54:00 Test Item Value Reference Range Interpretation Comments Hgb (test code = Hgb) 14.1 14.0-18.0 [facility] CenterEszheinDCYIWYPJIR1056-34-19 00:54:00 Test Item Value Reference Range Interpretation Comments WBC (test code = WBC) 10.9 3.7-10.4 [facility] CenterLffhaodQJPSMFUJWV9770-23-06 00:54:00 Test Item Value Reference Range Interpretation Comments Hct (test code = Hct) 42.4 42.0-54.0 [facility] [id number] 00:54:00 Test Item Value Reference Range Interpretation Comments RBC (test code = RBC) 4.85 4.70-6.10 [facility] Cent[id number] 00:54:00 Test Item Value Reference Range Interpretation Comments Eosinophils (test code = Eosinophils) 1.6 <=4.0 [facility] CenterKiqakldVXZPVGMNSX0767-66-27 00:54:00 Test Item Value Reference Range Interpretation Comments Basophils (test code = Basophils) 0.4 <=1.0 [facility] C[id number] 00:54:00 Test Item Value Reference Range Interpretation Comments Segs-Bands # (test code = Segs-Bands #) 7.6 1.5-8.1 [facility] CenterJrsothlYQDGJIKOUH1076-23-14 00:54:00 Test Item Value Reference Range Interpretation Comments Lymphocytes # (test code = Lymphocytes 2.5 1.0-5.5 #) [facility] [id number] 00:54:00 Test Item Value Reference Range Interpretation Comments Eosinophils # (test code = Eosinophils 0.2 <=0.5 #) [facility] CenterAefcsvzSGYVJVVYVM3423-51-17 00:54:00 Test Item Value Reference Range Interpretation Comments Basophils # (test code = Basophils #) 0.0 <=0.2 [facility] [id number] 00:54:00 Test Item Value Reference Range Interpretation Comments Monocytes # (test code = Monocytes #) 0.7 <=0.8 [facility] [id number] 00:54:00 Test Item Value Reference Range Interpretation Comments Segs (test code = Segs) 69.5 45.0-75.0 [facility] [id number] 00:54:00 Test Item Value Reference Range Interpretation Comments Lymphocytes (test code = Lymphocytes) 22.4 20.0-40.0 [facility] C[id number] 00:54:00 Test Item Value Reference Range Interpretation Comments Monocytes (test code = Monocytes) 6.1 2.0-12.0 [facility]
[2022-11-29] MEDS ORDERED: ONDANSETRON 4 MG/2 ML VIAL ONE (18:48)
[2022-11-29] MEDS ORDERED: MORPHINE 4 MG/ML SYR ONE ×2 (18:48→20:28)
[2022-11-29 19:01] LABS: Absolute Lymphocytes (CBC) 1.2 K/uL (0.7-4.9); Hematocrit 22.9 % (39.6-49.0); Lymphocytes % 27.2 % (15.3-44.8); MCV 94.2 fL (80-100); MPV 7.1 fL (7.6-11.3); Platelets 140 thou/uL (152-406); RBC Red Blood Cell Count 2.43 M/uL (4.33-5.43)
[2022-11-29 19:23] LABS: Albumin 2.7 g/dL (3.4-5.0); Bilirubin Direct 0.1 mg/dL (0-0.2); Bilirubin Indirect, Calculated 0.4 mg/dL (0.2-0.8); Bilirubin Total 0.5 mg/dL (0.2-1.0); Magnesium 1.9 mg/dL (1.6-2.4); Potassium 3.3 mEq/L (3.5-5.1); Troponin High Sensitivity 9.5 pg/mL (<58.9)
--- NOTE | 2022-11-29 19:29 | RAD REPORT ---
EXAM DESCRIPTION: RAD - Chest Single View - 11/29/2022 6:46 pm CLINICAL HISTORY: CHEST PAIN Chest pain. COMPARISON: No comparisons FINDINGS: Portable technique limits examination quality. Moderate bilateral pulmonary opacities are present which may represent pulmonary edema or pneumonia. The heart is moderately enlarged in size. No displaced fractures. IMPRESSION: Findings could indicate mild CHF. Infection/ pneumonia is a possibility also.
--- NOTE | 2022-11-29 19:33 | RAD REPORT ---
EXAM DESCRIPTION: US - Extrem Venous W Compress Salo - 11/29/2022 7:25 pm CLINICAL HISTORY: SWELLING Bilateral leg edema and swelling. COMPARISON: No comparisons TECHNIQUE: Real-time sonographic interrogation of the left and right lower extremity deep venous sys tems was performed. FINDINGS: Normal compressibility, flow augmentation, phasic flow and spontaneous flow is identified in both the left and right lower extremity deep venous systems. IMPRESSION: No sonographic evidence of left or right lower extremity deep venous thrombosis.
--- NOTE | 2022-11-29 19:41 | ER ---
Nurse's Notes [facility] Name: Braden Dietz Age: 57 yrs Sex: Male : 1965 Arrival Date: 11/29/2022 Time: 17:50 Bed 6 Private MD: Diagnosis: Chest pain, unspecified;Edema, unspecified;Anemia, unspecified Presentation: 11/29 18:03 Chief complaint: Patient states: Swelling to body for 3-4 days. CP, cough, body aches, ll1 fatigue started today. Coronavirus screen: Vaccine status: Patient reports receiving the 2nd dose of the covid vaccine. Client denies travel out of the [place] in the last 14 days. cough unrelated to allergies, fatigue, headache, muscle pain, Client presents with at least one sign or symptom that may indicate coronavirus-19. Standard/surgical mask placed on the client. Ebola Screen: Patient denies travel to an Ebola-affected area in the 21 days before illness onset. Initial Sepsis Screen: Does the patient meet any 2 criteria? No. Patient's initial sepsis screen is negative. Does the patient have a suspected source of infection? No. Patient's initial sepsis screen is negative. Risk Assessment: Do you want to hurt yourself or someone else? Patient reports no desire to harm self or others. Onset of symptoms was November 26, 2022. 18:03 Method Of Arrival: Wheelchair ll1 18:03 Acuity: MARLENI 3 ll1 Triage Assessment: 18:04 General: Appears uncomfortable, ill, Behavior is calm, cooperative, appropriate for ll1 age. Pain: Complains of pain in chest Quality of pain is described as aching. Cardiovascular: Reports chest pain, fatigue. Respiratory: Reports cough that is. Musculoskeletal: Reports body aches. 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 - Social history:: Smoking status: Patient denies any tobacco usage or history of. Screenin:20 [facility] ED Fall Risk Assessment (Adult) History of falling in the last 3 months, ld1 including since admission No falls in past 3 months (0 pts). Abuse screen: Denies threats or abuse. Denies injuries from another. Nutritional screening: No deficits noted. Tuberculosis screening: No symptoms or risk factors identified. Assessment: 18:20 General: Appears in no apparent distress. comfortable, Behavior is calm, cooperative, ld1 appropriate for age. Pain: Complains of pain in chest Pain does not radiate. Pain currently is 7 out of 10 on a pain scale. Quality of pain is described as pressure, Pain began 1 day ago. Is intermittent. Neuro: Level of Consciousness is awake, alert, obeys commands, Oriented to person, place, time, situation. Cardiovascular: Capillary refill < 3 seconds Patient's skin is warm and dry. Respiratory: Airway is patent Respiratory effort is even, unlabored. GI: Abdomen is round non-distended. : No signs and/or symptoms were reported regarding the genitourinary system. EENT: No signs and/or symptoms were reported regarding the EENT system. Derm: No signs and/or symptoms reported regarding the dermatologic system. Musculoskeletal: No signs and/or symptoms reported regarding the musculoskeletal system. Vital Signs: 18:03 BP 137 / 82; Pulse 72; Resp 18; Temp 98.3(O); Pulse Ox 95% on R/A; Weight 127.01 kg; ll1 Height 6 ft. 6 in. ; 19:22 BP 120 / 54; Pulse 63; Resp 18 S; Pulse Ox 99% on R/A; ha1 18:03 Body Mass Index 32.36 (127.01 kg, 198.12 cm) ll1 ED Course: 17:51 Patient arrived in ED. rg4 17:55 Columba Rey FNP-C [facility] kb 17:55 Johnny Haynes MD is Attending Physician. kb 18:02 Arm band placed on Patient placed in an exam room, on a stretcher. ll1 18:07 Triage completed. ll1 18:15 Missed attempt(s): 22 gauge in left antecubital area. Bleeding controlled, band aid ph applied, catheter tip intact. 18:20 Patient has correct armband on for positive identification. Placed in gown. Bed in low ld1 position. Call light in reach. Side rails up X2. medical equipment repair technician on. Pulse ox on. NIBP on. Door closed. Noise minimized. Warm blanket given. 18:20 No provider procedures requiring assistance completed. Patient maintains SpO2 ld1 saturation greater than 95% on room air. 18:21 SARS-COV-2 RT PCR Sent. ld1 18:21 Flu Sent. ld1 18:42 SARS-COV-2 RT PCR Sent. ld1 18:42 Flu Sent. ld1 18:48 XRAY Chest (1 view) In Process Unspecified. EDMS 19:27 US Extremity Venous W Compression Salo In Process Unspecified. EDMS 19:40 Benito Dawn MD is Hospitalizing Provider. kb Administered Medications: 18:57 Drug: morphine IVP or IV 4 mg IVP once over 4 mins Route: IVP; Infused Over: 4 mins; ph Site: left upper arm; 18:57 Drug: Ondansetron IVP 4 mg IVP once; over 2 minutes Route: IVP; Site: left upper arm; ph 20:20 Drug: morphine IVP or IV 4 mg IVP once over 4 mins Route: IVP; Infused Over: 4 mins; ha1 Site: left upper arm; 20:23 Drug: Furosemide IVP 40 mg IVP once; give over 2 minutes Route: IVP; Site: left upper ha1 arm; Medication: 18:20 VIS not applicable for this client. ld1 Outcome: 19:41 Decision to Hospitalize by Provider. kb 20:43 Patient left the ED. ha1 Signatures: Dispatcher [employer] Columba Cleary, PORTRAIT PAINTER-C PORTRAIT PAINTER-CkMariana Cuba RN RN ph Garcia, Rubi rg4 Javid Holliday RN RN 1 Tiffanie Hinson RN RN 1 Matilde Stringer RN RN 1
--- NOTE | 2022-11-29 19:41 | EDPHYS ---
Physician Documentation [facility] Name: Braden Dietz Age: 57 yrs Sex: Male : 1965 Arrival Date: 11/29/2022 Time: 17:50 Bed 6 Private MD: MAY Physician Johnny Haynes HPI: 11/29 18:18 This 57 yrs old Male presents to ER via Wheelchair with complaints of Chest Pressure. kb 18:18 The patient or guardian reports chest pain that is located primarily in the chest kb diffusely. Onset: 1.5 hour(s) ago. The pain does not radiate. Associated signs and symptoms: Pertinent positives: cough. The chest pain is described as a pressure. Duration: The patient or guardian reports a single episode. Modifying factors: The symptoms are alleviated by nothing. the symptoms are aggravated by nothing. Severity of pain: At its worst the pain was moderate in the emergency department the pain is unchanged. The patient has not experienced similar symptoms in the past. The patient has not recently seen a physician. Pt reports he woke up with malaise, body aches and cough. 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 Also reports lower extremity swelling for a few weeks. 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 - Social history:: Smoking status: Patient denies any tobacco usage or history of. ROS: 18:17 Abdomen/GI: Negative for abdominal pain, nausea, vomiting, diarrhea, and constipation, kb 18:17 Constitutional: Positive for body aches, fatigue, malaise, 18:17 Cardiovascular: Positive for chest pain, edema, 18:17 Respiratory: Positive for cough, 18:17 All other systems are negative, Exam: 18:17 Constitutional: This is a well developed, well nourished patient who is awake, alert, kb and in no acute distress. Head/Face: Normocephalic, atraumatic. ENT: Moist Mucous membranes Cardiovascular: Regular rate Respiratory: Respirations even and unlabored. No increased work of breathing. Talking in full sentences Abdomen/GI: Soft, non-tender. No distention Skin: Warm, dry with normal turgor. Normal color. MS/ Extremity: Pulses equal, no cyanosis. Neurovascular intact. Full, normal range of motion. Neuro: Awake and alert, GCS 15, oriented to person, place, time, and situation. Moves all extremities. Normal gait. 18:17 ECG was reviewed by the Attending Physician. Vital Signs: 18:03 BP 137 / 82; Pulse 72; Resp 18; Temp 98.3(O); Pulse Ox 95% on R/A; Weight 127.01 kg; ll1 Height 6 ft. 6 in. ; 19:22 BP 120 / 54; Pulse 63; Resp 18 S; Pulse Ox 99% on R/A; ha1 18:03 Body Mass Index 32.36 (127.01 kg, 198.12 cm) ll1 MDM: 17:55 Patient medically screened. kb 18:18 Data reviewed: vital signs, nurses notes. kb 19:39 Differential diagnosis: abnormal EKG, acute myocardial infarction, coronary artery kb disease congestive heart failure pneumonia. Consideration of Admission/Observation Patient was admitted/placed on observation. Escalation of care including admission/observation considered. Management of patient was discussed with the following: Hospitalist: JT Harmon accepts pt for admission under Dr Dawn. Counseling: I had a detailed discussion with the patient and/or guardian regarding the historical points, exam findings, and any diagnostic results supporting the discharge/admit diagnosis, lab results, radiology results, the need for further work-up and treatment in the hospital. 11/29 18:03 Order name: Basic Metabolic Panel; Complete Time: 19:30 kb 11/29 18:03 Order name: CBC with Diff; Complete Time: 19:08 kb 11/29 18:03 Order name: LFT's; Complete Time: 19:30 kb 11/29 18:03 Order name: Magnesium; Complete Time: 19:30 kb 11/29 18:03 Order name: NT PRO-BNP; Complete Time: 19:30 kb 11/29 18:03 Order name: Troponin HS; Complete Time: 19:30 kb 11/29 18:03 Order name: Flu; Complete Time: 18:54 kb 11/29 18:03 Order name: SARS-COV-2 RT PCR; Complete Time: 19:06 kb 11/29 18:03 Order name: XRAY Chest (1 view); Complete Time: 19:30 kb 11/29 18:03 Order name: US Extremity Venous W Compression Salo; Complete Time: 19:34 kb 11/29 18:03 Order name: EKG; Complete Time: 18:04 kb 11/29 18:03 Order name: Cardiac monitoring; Complete Time: 18:23 kb 11/29 18:03 Order name: EKG - Nurse/Tech; Complete Time: 18:23 kb 11/29 18:03 Order name: IV Saline Lock; Complete Time: 18:53 kb 11/29 18:03 Order name: Labs collected and sent; Complete Time: 18:53 kb 11/29 18:03 Order name: O2 Per Protocol; Complete Time: 18:23 kb 11/29 18:03 Order name: O2 Sat Monitoring; Complete Time: 18:23 kb EC:17 Rate is 68 beats/min. Rhythm is regular. QRS Rombauer is Normal. NV interval is normal at kb 156 msec. QRS interval is normal at 100 msec. QT interval is prolonged at 504 msec. Administered Medications: 18:57 Drug: morphine IVP or IV 4 mg IVP once over 4 mins Route: IVP; Infused Over: 4 mins; ph Site: left upper arm; 18:57 Drug: Ondansetron IVP 4 mg IVP once; over 2 minutes Route: IVP; Site: left upper arm; ph 20:20 Drug: morphine IVP or IV 4 mg IVP once over 4 mins Route: IVP; Infused Over: 4 mins; ha1 Site: left upper arm; 20:23 Drug: Furosemide IVP 40 mg IVP once; give over 2 minutes Route: IVP; Site: left upper ha1 arm; Disposition Summary: 11/29/22 19:41 Hospitalization Ordered Notes: Hospitalization Status: Inpatient Admission kb Provider: Benito Dawn Location: Telemetry/MedSurg (Inpatient) kb Condition: Stable kb Problem: new kb Symptoms: are unchanged kb Bed/Room Type: Standard Room Assignment: 209(11/29/22 20:04) Diagnosis - Chest pain, unspecified kb - Edema, unspecified kb - Anemia, unspecified kb Forms: - Medication Reconciliation Form kb - SBAR form kb - Leadership Thank You Letter kb Signatures: Dispatcher [employer] Columba Cleary, LANI-C RETURNED MATERIALS INSPECTOR-Ckb Faustino Luu RETURNED MATERIALS INSPECTOR-C RETURNED MATERIALS INSPECTOR-Cla1 Mariana Hernandez RN RN ph Vivien Zuniga RN RN Javid Holliday RN RN 1 Matilde Stringer RN RN ha1 Corrections: (The following items were deleted from the chart) 20:04 19:41 kb
--- NOTE | 2022-11-29 20:11 | P.HP ---
Certification for Inpatient Patient admitted to: Inpatient With expected LOS: >2 Midnights Patient will require the following post-hospital care: None Practitioner: I am a practitioner with admitting privileges, knowledge of patient current condition, hospital course, and medical plan of care. 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 He reports increasing swelling of the lower extremities for the past 2 to 3 weeks, he reports being previously diagnosed with congestive heart failure but being taken off his diuretic approximately 3 months ago as his kidney function was worsening. He is unsure of his baseline creatinine, renal function or hemoglobin. He also is reporting chest pain intermittently. He was evaluated in the emergency department his labs are significant for hemoglobin 7.7 hematocrit 22.9 platelet count 140 creatinine 2.29 GFR 33 BNP 1302 initial high-sensitivity troponin 9.5 chest x-ray shows mild CHF negative for DVT bilateral lower extremities on ultrasound. He does have pitting edema of the lower extremities. ED provider wishes to admit patient for CHF exacerbation. 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 - Family History Father -: Heart disease - Social History Smoking Status: Never smoker Alcohol use: No CD- Drugs: No Caffeine use: Yes Place of Residence: Home Review of Systems 10-point ROS is otherwise unremarkable Respiratory: Cough Cardiovascular: Chest Pain, Edema Physical Examination - Physical Exam General: Alert, In no apparent distress, Oriented x3 HEENT: Atraumatic, PERRLA, Mucous membr. moist/pink, EOMI, Sclerae nonicteric Neck: Supple, 2+ carotid pulse no bruit, No LAD, Without JVD or thyroid abnormality Respiratory: Diminished Cardiovascular: Regular rate/rhythm, Normal S1 S2, Edema Gastrointestinal: Normal bowel sounds, No tenderness Musculoskeletal: No tenderness Integumentary: No rashes Neurological: Normal speech, Normal strength at 5/5 x4 extr, Normal tone, Normal affect - Studies Laboratory Data (last 24 hrs) 11/29/22 11/29/22 18:53 18:53 WBC 4.40 Hgb 7.7 L Hct 22.9 L Plt Count 140 L Sodium 142 Potassium 3.3 L BUN 15 Creatinine 2.29 H Glucose 101 Magnesium 1.9 Total Bilirubin 0.5 AST 12 L ALT 14 L Alkaline Phosphatase 88 Microbiology Data (last 24 hrs): 11/29/22 18:15 Nasopharnyx Influenza Type A Antigen Screen - Final 11/29/22 18:15 Nasopharnyx Influenza Type B Antigen Screen - Final Assessment and Plan - Plan Assessment: Acute on chronic CHFunknown EF Chest pain rule out ACS PENELOPE versus CKD Anemia of chronic disease History of leukemia status post bone marrow transplant Plan: Acute on chronic CHFunknown EF Chest pain rule out ACS Has a known history of CHF, unknown EF, was taken off of his diuretic approximately 3 months ago by his doctors in [place] because his kidney function was worsening. Increasing lower extremity edema of the last 2 to 3 weeks. Continue IV diuresis, obtain echocardiogram, cardiology consult. He is also been having intermittent chest pain, reports normal stress test approximately 2 months ago he had a heart catheterization a few years ago without need for stent placement. Trend troponins, monitor on telemetry. Appreciate further per from cardiology. PENELOPE versus CKD Unknown renal function baseline although in the past patient did require dialysis during a hospitalization, he does have known CKD. He is going to attempt to obtain previous labs/records from his PCP. Continue diuresis for CHF at this time. Renal ultrasound, nephrology consult. Anemia of chronic disease No active bleeding, obtain additional labs. Transfuse to maintain hemoglobin greater than 7. History of leukemia status post bone marrow transplant Continue supportive care, outpatient follow-up. DVT PPX: Heparin subcu Code status: Full Discharge Plan: Home Plan to discharge in: 48 Hours - Advance Directives Does patient have a Living Will: No Does patient have a Durable POA for Healthcare: No - Code Status/Comfort Care Code Status Assessed: Yes (Full code) Critical Care: No Time Spent Managing Pts Care (In Minutes): 70
[2022-11-29] MEDS ORDERED: FUROSEMIDE 40 MG/4 ML VIAL ONE (20:28)
[2022-11-29] MEDS ORDERED: ONDANSETRON 4 MG/2 ML VIAL IV PRN (21:02)
[2022-11-29] MEDS: HEPARIN 5000 UNIT/ML 1 ML VIAL SQ SCH (21:36)
[2022-11-29] MEDS: MORPHINE 4 MG/ML SYR IV PRN (21:54)
[2022-11-29 22:38] VITALS: BMI 32.3
[2022-11-29] MEDS ORDERED: HYDROMORPHONE HCL 0.5 MG/0.5 ML INJ IV ONE (23:21)
[2022-11-30 00:40] LABS: Specific Gravity 1.007 (1.005-1.030); Urine Bilirubin NEGATIVE (Negative); Urine Blood Negative (Negative); Urine Clarity Clear (Clear); Urine Color Colorless (Yellow); Urine Glucose NEGATIVE (Negative); Urine Protein NEGATIVE (Negative); Urine Urobilinogen Normal (Normal); Urine pH 5.5 (5.0-7.0)
[2022-11-30] MEDS: MORPHINE 4 MG/ML SYR IV PRN ×4 (02:07→13:52)
[2022-11-30 04:55] LABS: Hematocrit 22.2 % (39.6-49.0); Lymphocytes % 25.4 % (15.3-44.8); MCV 94.3 fL (80-100); MPV 7.6 fL (7.6-11.3); Platelets 124 thou/uL (152-406); RBC Red Blood Cell Count 2.35 M/uL (4.33-5.43)
[2022-11-30 05:47] LABS: Ferritin 657.2 ng/mL (26-388); Troponin High Sensitivity 9.8 pg/mL (<58.9)
[2022-11-30 05:48] LABS: Potassium 3.4 mEq/L (3.5-5.1); Thyroid Stimulating Hormone 7.14 uIU/mL (0.358-3.740)
--- NOTE | 2022-11-30 07:22 | RAD REPORT ---
EXAM DESCRIPTION: US - Renal Ultrasound-Complete - 11/29/2022 11:32 pm CLINICAL HISTORY: Acute renal insufficiency. Chronic renal insufficiency COMPARISON: None FINDINGS: The right kidney measures 12 cm with a normal echotexture. The left kidney measures 12 cm with a normal echotexture. Hydronephrosis is not seen. No gross abnormality of bladder IMPRESSION: Unremarkable renal ultrasound.
[2022-11-30] MEDS ORDERED: INFLUENZA VACCINE (for 6+ mo) 0.5 ML DOSE IMVAC ONE (08:00)
[2022-11-30] MEDS: FUROSEMIDE 20 MG/ 2ML VIAL IV SCH ×2 (08:11→16:06)
[2022-11-30] MEDS: HEPARIN 5000 UNIT/ML 1 ML VIAL SQ SCH ×2 (08:12→21:28)
[2022-11-30] MEDS ORDERED: POTASSIUM CL SA 10 MEQ TAB PO ONE ×2 (09:47→15:00)
--- NOTE | 2022-11-30 09:48 | P.CNS ---
Date of Consult: 11/30/22 Reason for Consult: PENELOPE/ CKD Requesting Physician: Benito Dawn Chief Complaint: CHF History of Present Illness: 57-year-old male with history of leukemia status post bone marrow transplant April 2022, chronic CHFunknown EF, CKD, unknown baseline, anemia presents to the emergency department with chief complaint of lower extremity edema. 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 He reports increasing swelling of the lower extremities for the past 2 to 3 weeks, he reports being previously diagnosed with congestive heart failure but being taken off his diuretic approximately 3 months ago as his kidney function was worsening. He is unsure of his baseline creatinine, renal function or hemoglobin. He also is reporting chest pain intermittently. He was evaluated in the emergency department his labs are significant for hemoglobin 7.7 hematocrit 22.9 platelet count 140 creatinine 2.29 GFR 33 BNP 1302 initial high-sensitivity troponin 9.5 chest x-ray shows mild CHF negative for DVT bilateral lower extremities on ultrasound. He does have pitting edema of the lower extremities. ED provider wishes to admit patient for CHF exacerbation. [id number] 18:18 This 57 yrs old Male presents to ER via Wheelchair with complaints of Chest Pressure. kb 18:18 The patient or guardian reports chest pain that is located primarily in the chest kb diffusely. Onset: 1.5 hour(s) ago. The pain does not radiate. Associated signs and symptoms: Pertinent positives: cough. The chest pain is described as a pressure. Duration: The patient or guardian reports a single episode. Modifying factors: The symptoms are alleviated by nothing. the symptoms are aggravated by nothing. Severity of pain: At its worst the pain was moderate in the emergency department the pain is unchanged. The patient has not experienced similar symptoms in the past. The patient has not recently seen a physician. Pt reports he woke up with malaise, body aches and cough. 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 Also reports lower extremity swelling for a few weeks. He denies NSAIDs. He denies difficulty with urination. Chest pressure. Allergies No Known Allergies Allergy (Unverified 11/29/22 21:01) Home medications list reviewed: Yes Home Medications: Acyclovir 1 tab PO BID 11/30/22 Amiodarone HCl [Cordarone*] 1 tab PO DAILY 11/30/22 Atorvastatin Calcium 1 tab PO BEDTIME 11/30/22 Cyanocobalamin [Vitamin B-12*] 1 tab PO DAILY 11/30/22 Furosemide 1 tab PO DAILY 11/30/22 Melatonin 1 tab PO BEDTIME PRN 11/30/22 Mirtazapine 1 tab PO BEDTIME 11/30/22 Pantoprazole Sodium 1 tab PO DAILY 11/30/22 Sirolimus 3 tab PO DAILY 11/30/22 Smz./Tmp. 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 - Family History Father Medical History: Heart disease - Social History Alcohol use: No CD- Drugs: No Caffeine use: Yes Place of Residence: Home Review of Systems 10-point ROS is otherwise unremarkable General: Weakness, Malaise Cardiovascular: Chest Pain Neurological: Weakness Physical Examination Temp Pulse Resp BP Pulse Ox 98.5 F 80 16 114/62 98 11/30/22 04:00 11/30/22 08:11 11/30/22 06:15 11/30/22 08:11 11/30/22 06:15 General: In no apparent distress, Oriented x3 HEENT: Atraumatic Neck: Supple Respiratory: Clear to auscultation bilaterally Cardiovascular: Regular rate/rhythm, Edema Gastrointestinal: Soft and benign, Non-distended Musculoskeletal: No clubbing, No contractures Integumentary: No rashes, No cyanosis Neurological: Normal speech Laboratory Data (last 24 hrs) 11/29/22 11/29/22 18:53 18:53 WBC 4.40 Hgb 7.7 L Hct 22.9 L Plt Count 140 L Sodium 142 Potassium 3.3 L BUN 15 Creatinine 2.29 H Glucose 101 Magnesium 1.9 Total Bilirubin 0.5 AST 12 L ALT 14 L Alkaline Phosphatase 88 Imagings Data: [id number] EXAM DESCRIPTION: US - Renal Ultrasound-Complete - 11/29/2022 11:32 pm CLINICAL HISTORY: Acute renal insufficiency. Chronic renal insufficiency COMPARISON: None FINDINGS: The right kidney measures 12 cm with a normal echotexture. The left kidney measures 12 cm with a normal echotexture. Hydronephrosis is not seen. No gross abnormality of bladder IMPRESSION: Unremarkable renal ultrasound. [id number] EXAM DESCRIPTION: US - Extrem Venous W Compress Salo - 11/29/2022 7:25 pm CLINICAL HISTORY: SWELLING Bilateral leg edema and swelling. COMPARISON: No comparisons TECHNIQUE: Real-time sonographic interrogation of the left and right lower extremity deep venous systems was performed. FINDINGS: Normal compressibility, flow augmentation, phasic flow and spontaneous flow is identified in both the left and right lower extremity deep venous systems. IMPRESSION: No sonographic evidence of left or right lower extremity deep venous thrombosis. [address] EXAM DESCRIPTION: RAD - Chest Single View - 11/29/2022 6:46 pm CLINICAL HISTORY: CHEST PAIN Chest pain. COMPARISON: No comparisons FINDINGS: Portable technique limits examination quality. Moderate bilateral pulmonary opacities are present which may represent pulmonary edema or pneumonia. The heart is moderately enlarged in size. No displaced fractures. IMPRESSION: Findings could indicate mild CHF. Infection/ pneumonia is a p ossibility also. Conclusions/Impression: Stage I PENELOPE likely CRS CKD IIIb Hx of PENELOPE/ HD while in the ICU -No NSAIDs -Continue diuresis Hypokalemia -Replete as ordered CHF, A/C LE Edema -Continue Lasix -Echocardiogram pending Hypoalbuminemia -Consider protein supplementation Anemia in chronic illness Pancytopenia Hx leukemia 06/2021 sp Bone Marrow Tx 04/2022 -Monitor H&H -PRBC prn Hx Factor V Leiden Hx Blood Clots -Oncologist recently took him off anticoagulation -Heparin SC Hospitalist and ER notes reviewed Case reviewed with Dr. Dawn Thank you kindly for the consultation
--- NOTE | 2022-11-30 09:53 | P.PN ---
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 He reports increasing swelling of the lower extremities for the past 2 to 3 weeks, he reports being previously diagnosed with congestive heart failure but being taken off his diuretic approximately 3 months ago as his kidney function was worsening. He is unsure of his baseline creatinine, renal function or hemoglobin. He also is reporting chest pain intermittently. He was evaluated in the emergency department his labs are significant for hemoglobin 7.7 hematocrit 22.9 platelet count 140 creatinine 2.29 GFR 33 BNP 1302 initial high-sensitivity troponin 9.5 chest x- ray shows mild CHF negative for DVT bilateral lower extremities on ultrasound. He does have pitting edema of the lower extremities. ED provider wishes to admit patient for CHF exacerbation. 11/30: Patient is awake and oriented this morning, c/o left sided chest pain stating this usually happens when his blood levels are low. Hgb on admission 7.7 and at 4am 7.5. Will recheck. Nephrology consulted and recs received. Patient stated he was told to stop BP meds and lasix. BP this AM 108/57. Will continue to monitor. VQ revealed low probability of pulmonary embolism <Deepthi Mayfield - Last Filed: 11/30/22 16:51> Date of Service: 11/30/22 <Benito Dawn - Last Filed: 11/30/22 19:58> Review of Systems General: As per HPI Eyes: Unremarkable ENT: Unremarkable Respiratory: Unremarkable Cardiovascular: Chest Pain (left sided chest pain) Gastrointestinal: Unremarkable Genitourinary: Unremarkable Musculoskeletal: Unremarkable Integumentary: Unremarkable Neurological: Unremarkable <Deepthi Mayfield - Last Filed: 11/30/22 16:51> Physical Examination - Vital Signs Temperature: 98.5 F Blood Pressure: 114/62 Pulse: 80 Respirations: 18 Pulse Ox (%): 95 - Physical Exam General: Alert, In no apparent distress, Oriented x3 HEENT: Normocephalic, PERRLA Neck: Supple, 2+ carotid pulse no bruit, JVD not distended Respiratory: Clear to auscultation bilaterally Cardiovascular: Regular rate/rhythm, Normal S1 S2, Edema (BLE) Capillary refill: <2 Seconds Gastrointestinal: Normal bowel sounds Musculoskeletal: No clubbing, No contractures Integumentary: Other (dark area to right smith) Neurological: Normal speech, Normal strength at 5/5 x4 extr, Normal tone Lymphatics: No axilla or inguinal lymphadenopathy - Studies Laboratory Data (last 24 hrs) 11/29/22 11/29/22 18:53 18:53 WBC 4.40 Hgb 7.7 L Hct 22.9 L Plt Count 140 L Sodium 142 Potassium 3.3 L BUN 15 Creatinine 2.29 H Glucose 101 Magnesium 1.9 Total Bilirubin 0.5 AST 12 L ALT 14 L Alkaline Phosphatase 88 Microbiology Data (last 24 hrs): 11/29/22 18:15 Nasopharnyx Influenza Type A Antigen Screen - Final 11/29/22 18:15 Nasopharnyx Influenza Type B Antigen Screen - Final <Deepthi Mayfield - Last Filed: 11/30/22 16:51> - Studies Microbiology Data (last 24 hrs): 11/29/22 18:15 Nasopharnyx Influenza Type A Antigen Screen - Final 11/29/22 18:15 Nasopharnyx Influenza Type B Antigen Screen - Final <Benito Dawn - Last Filed: 11/30/22 19:58> Assessment And Plan - Plan Assessment: Acute on chronic CHFunknown EF Chest pain rule out ACS PENELOPE versus CKD Anemia of chronic disease History of leukemia status post bone marrow transplant Plan: Acute on chronic CHFunknown EF Chest pain rule out ACS Has a known history of CHF, unknown EF, was taken off of his diuretic approximately 3 months ago by his doctors in [place] because his kidney function was Worsening. Increasing lower extremity edema of the last 2 to 3 weeks. Continue IV diuresis, obtain echocardiogram, cardiology consult. He is also b een having Intermittent chest pain- dilaudid Reports normal stress test approximately 2 months ago he had a heart catheterization a few years ago without need for stent placement. Trend troponins 905/10.7/9.8 Monitor On telemetry. Appreciate further per from cardiology. VQ revealed low probability of pulmonary embolism PENELOPE versus CKD Unknown renal function baseline although in the past patient did require dialysis during a hospitalization, he does have known CKD. He is going to attempt to Obtain previous labs/records from his PCP. Continue diuresis for CHF at this time. Renal ultrasound unremarkable Nephrology consult and agree with diuresis, recommend protein supplement, no NSAIDs Anemia of chronic disease Pancytopenia Hgb on admission 7.7, at 4 am 7.5, redraw 8.1 Platelets 127 this AM, redraw now No active bleeding, obtain additional labs. Transfuse to maintain hemoglobin greater than 7. History of leukemia status post bone marrow transplant Continue supportive care, outpatient follow-up. DVT PPX: Heparin subcu Code status: Full Discharge Plan: Home Plan to discharge in: 48 Hours Time Spent Managing PTS Care (In Minutes): 35 <Deepthi Mayfield - Last Filed: 11/30/22 16:51> Physician Review: Patient Assessed, Agree with Above Assessment and Plan <Benito Dawn - Last Filed: 11/30/22 19:58>
[2022-11-30 10:10] LABS: Absolute Lymphocytes (CBC) 2.2 K/uL (0.7-4.9); Hematocrit 24.2 % (39.6-49.0); Lymphocytes % 28.8 % (15.3-44.8); MCV 93.9 fL (80-100); MPV 7.5 fL (7.6-11.3); Platelets 138 thou/uL (152-406); RBC Red Blood Cell Count 2.57 M/uL (4.33-5.43)
[2022-11-30 10:53] LABS: White Blood Cell Scan OK (OK)
[2022-11-30 10:54] LABS: Anisocytosis 1+; Blood Morphology Comment NOTED (NOT SEEN); Platelet Estimate ADEQ; Polychromasia SLIGHT
--- NOTE | 2022-11-30 12:00 | RAD REPORT ---
EXAM DESCRIPTION: NM - Vent Perfusion VQ Scan - 11/30/2022 11:26 am CLINICAL HISTORY: Shortness of breath and elevated d-dimer COMPARISON: Chest x-ray November 29, 2022 TECHNIQUE: Xenon was unable to be administered secondary to a national shortage 6.8 millicuries Technetium-99 MAA was administered intravenously. Anterior, posterior, lateral and ob lique views of the lungs were taken. FINDINGS: Lungs demonstrate mildly inhomogeneous radiotracer activity bilaterally. This is matched w ith the chest x-ray. No lobar or segmental defects noted. IMPRESSION: The patient has a low probability for a pulmonary embolism
[2022-11-30] MEDS: ACETAMINOPHEN 500 MG TAB PO PRN ×2 (12:44→18:30)
[2022-11-30] MEDS: HYDROMORPHONE HCL 1 MG/ML INJ IV PRN ×3 (15:07→21:28)
--- NOTE | 2022-11-30 15:07 | EKG ---
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
--- NOTE | 2022-11-30 20:27 | CON ---
Date of Consultation: 11/30/2022 Reason For Consultation: Chest pain. History Of Present Illness: 57-year-old male, history of CHF, leukemia, status post bone marrow turner splant, chronic kidney disease, anemia, presented to the emergency department with lower extremity ed licha. Also he is complaining of chest pain, pressure-like, and that has been happening since yesterda y and it is constant and it does not go away and cardiac enzymes x3 are negative. Past Medical History: As outlined above in the HPI. Medications: Refer reconciliation sheet for detailed list. Allergies: NO KNOWN DRUG ALLERGIES. Family History: No premature coronary artery disease or cancer. Social History: He does not smoke or drink. Does not use any drugs. Review of Systems: All systems reviewed and they were negative except as mentioned in the HPI. Physical Examination: Vital Signs: Reviewed. Head and Neck: Pupils are equal, reactive to light. Intact eye movements. No JVD. No cervical lym phadenopathy. Neck is supple. Thyroid is not enlarged. Lungs: Clear to auscultation bilaterally. No rhonchi, wheezing, or crackles. No accessory muscle u se. Heart: Regular rate and rhythm. No extra sounds. Abdomen: Soft, nontender. Bowel sounds positive. No organomegaly. No masses or hernia. No rigidi ty or rebound Extremities: No edema, clubbing, or cyanosis. Intact pulses. Skin: No rash. No nodule. Neurologic: Alert, awake, oriented x3. No acute focal deficits appreciated. Lymph Nodes: No cervical or axillary lymphadenopathy. Investigations: Cardiac enzymes x3 are negative. BUN is 15, creatinine 2.16. Assessment And Recommendations: Chest pain, is atypical, constant since yesterday with cardiac enzym es being negative, but he continues to complain of significant pain. Obtain Lexiscan nuclear stress test tomorrow and further recommendations to follow accordingly. SR/MODL Voice ID: [id number] Report ID: [id number]
[2022-11-30] MEDS: DOCUSATE NA 100 MG CAP PO SCH (21:28)
[2022-12-01] MEDS: HYDROMORPHONE HCL 1 MG/ML INJ IV PRN ×8 (00:57→23:02)
[2022-12-01 06:14] LABS: Phosphorus 3.9 mg/dL (2.5-4.9); Potassium 4.1 mEq/L (3.5-5.1); Uric Acid 9.8 mg/dL (3.5-7.2)
[2022-12-01] MEDS: DOCUSATE NA 100 MG CAP PO SCH ×2 (07:47→20:03)
[2022-12-01] MEDS: FUROSEMIDE 20 MG/ 2ML VIAL IV SCH ×2 (07:47→17:24)
[2022-12-01] MEDS: HEPARIN 5000 UNIT/ML 1 ML VIAL SQ SCH ×2 (07:47→20:02)
[2022-12-01] MEDS: ACETAMINOPHEN 500 MG TAB PO PRN ×3 (07:47→20:02)
[2022-12-01] MEDS: PANTOPRAZOLE 40MG TABLET PO SCH ×2 (07:49→17:02)
[2022-12-01] MEDS: AMIODARONE HCL 200 MG TAB PO SCH (07:49)
[2022-12-01 09:09] LABS: Absolute Lymphocytes (CBC) 3.3 K/uL (0.7-4.9); Hematocrit 24.6 % (39.6-49.0); Lymphocytes % 39.8 % (15.3-44.8); MCV 94.6 fL (80-100); MPV 7.5 fL (7.6-11.3); Platelets 110 thou/uL (152-406); RBC Red Blood Cell Count 2.61 M/uL (4.33-5.43)
[2022-12-01 10:15] LABS: Blood Morphology Comment NOTED (NOT SEEN); Platelet Estimate DECR; Polychromasia SLIGHT; Teardrop Cell FEW
--- NOTE | 2022-12-01 12:11 | P.PN ---
(S) Pt reports still having some chest pressure, no dyspnea, reports peripheral edema better (O) Vitals reviewed in the EMR General: In no apparent distress, Oriented x3 HEENT: Atraumatic, sclera anicteric, on O2 Neck: Supple Respiratory: Mildly diminished,no rales or rhonchi Cardiovascular: Regular rate/rhythm, Edema mild/improved distally Gastrointestinal: Soft and benign, Non-distended Musculoskeletal: No clubbing, No contractures Integumentary: No rashes, No cyanosis Neurological: Normal speech, awake, alert, non focal Laboratory Data (last 24 hrs) Reviewed in the EMR Imagings Data: [id number] EXAM DESCRIPTION: US - Renal Ultrasound-Complete - 11/29/2022 11:32 pm CLINICAL HISTORY: Acute renal insufficiency. Chronic renal insufficiency COMPARISON: None FINDINGS: The right kidney measures 12 cm with a normal echotexture. The left kidney measures 12 cm with a normal echotexture. Hydronephrosis is not seen. No gross abnormality of bladder IMPRESSION: Unremarkable renal ultrasound. EXAM DESCRIPTION: RAD - Chest Single View - 11/29/2022 6:46 pm CLINICAL HISTORY: CHEST PAIN Chest pain. COMPARISON: No comparisons FINDINGS: Portable technique limits examination quality. Moderate bilateral pulmonary opacities are present which may represent pulmonary edema or pneumonia. The heart is moderately enlarged in size. No displaced fractures. IMPRESSION: Findings could indicate mild CHF. Infection/ pneumonia is a possibility also. Conclusions/Impression: Stage I PENELOPE possibly, unknown exact baseline, presumed underlying CKD Stage III unspecified. 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 UA bland CHF unspecified LE Edema -Continue gentle IV Lasix -Echocardiogram pending -BP soft, no DAYAMI inhibitors at this time Anemia in chronic illness, other Hx leukemia 06/2021 sp Bone Marrow Tx 04/2022 -Management per IM Patricio Harper MD, NEELAM
[2022-12-01] MEDS: ACYCLOVIR 400 MG TABLET PO SCH ×2 (14:13→20:02)
--- NOTE | 2022-12-01 14:47 | ECHO ---
HEIGHT: 6 ft 6 in WEIGHT: 280 lb 0 oz DATE OF STUDY: 12/01/[address]: Faustino Luu NP 2-DIMENSIONAL: YES M.MODE: YES DOPPLER: YES COLOR FLOW: YES TDS: PORTABLE: YES DEFINITY: BUBBLE STUDY: DIAGNOSIS: CHEST PAIN, CONGESTIVE HEART FAILURE CARDIAC HISTORY: CATHERIZATION: NO SURGERY: NO PROSTHETIC VALVE: NO PACEMAKER: NO MEASUREMENTS (cm) DIASTOLIC (NORMALS) SYSTOLIC (NORMALS) IVSd 1.1 (0.6-1.2) LA Diam 3.1 (1.9-4.0) LVEF 62% LVIDd 5.3 (3.5-5.7) LVIDs 3.5 (2.0-3.5) %FS 34% LVPWd 1.1 (0.6-1.2) Ao Diam 3.0 (2.0-3.7) 2 DIMENSIONAL ASSESSMENT: RIGHT ATRIUM: NORMAL LEFT ATRIUM: NORMAL RIGHT VENTRICLE: NORMAL LEFT VENTRICLE: NORMAL TRICUSPID VALVE: MILD TRICUSPID REGURGITATION MITRAL VALVE: NORMAL PULMONIC VALVE: NORMAL AORTIC VALVE: NORMAL PERICARDIAL EFFUSION: NONE AORTIC ROOT: NORMAL LEFT VENTRICULAR WALL MOTION: NORMAL DOPPLER/COLOR FLOW: MILD TRICUSPID REGURGITATION COMMENTS: 1. NORMAL LEFT VENTRICULAR EJECTION FRACTION 60-65% 2. NORMAL WALL MOTION 3. MILD TRICUSPID REGURGITATION TECHNOLOGIST: UYEN RED
--- NOTE | 2022-12-01 15:18 | P.PN ---
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 He reports increasing swelling of the lower extremities for the past 2 to 3 weeks, he reports being previously diagnosed with congestive heart failure but being taken off his diuretic approximately 3 months ago as his kidney function was worsening. He is unsure of his baseline creatinine, renal function or hemoglobin. He also is reporting chest pain intermittently. He was evaluated in the emergency department his labs are significant for hemoglobin 7.7 hematocrit 22.9 platelet count 140 creatinine 2.29 GFR 33 BNP 1302 initial high-sensitivity troponin 9.5 chest x- ray shows mild CHF negative for DVT bilateral lower extremities on ultrasound. He does have pitting edema of the lower extremities. ED provider wishes to admit patient for CHF exacerbation. 11/30: Patient is awake and oriented this morning, c/o left sided chest pain stating this usually happens when his blood levels are low. Hgb on admission 7.7 and at 4am 7.5. Will recheck. Nephrology consulted and recs received. Patient stated he was told to stop BP meds and lasix. BP this AM 108/57. Will continue to monitor. VQ revealed low probability of pulmonary embolism 12/01:Patient awake and oriented this AM, febrile OVN, ordering CXR, strep, covid, flu, and RSV. Monitoring neutrophils and ANC. UA neg from admission. ECHO today showing mild tricuspid regurgitation and EF of 60-65%. Patient denies SOB, ALBERTS, N/V/D, but is c/o left sided CP. Dilaudid is helping. <Deepthi Mayfield - Last Filed: 12/01/22 15:20> Date of Service: 12/01/22 <Benito Dawn - Last Filed: 12/01/22 19:34> Review of Systems General: Fever, Weakness Eyes: Unremarkable ENT: Unremarkable Respiratory: Unremarkable Cardiovascular: Chest Pain (left sided) Gastrointestinal: Unremarkable Genitourinary: Unremarkable Musculoskeletal: Unremarkable Neurological: Other (sluggish) <Ra Chaparroeann - Last Filed: 12/01/22 15:20> Physical Examination - Vital Signs Temperature: 100.0 F Blood Pressure: 104/54 Pulse: 78 Respirations: 18 Pulse Ox (%): 92 - Physical Exam General: Alert, In no apparent distress, Oriented x3, Other (uncomfortable) HEENT: Atraumatic, Normocephalic, PERRLA Neck: Supple, 2+ carotid pulse no bruit, JVD not distended Respiratory: Clear to auscultation bilaterally, Normal air movement Cardiovascular: Regular rate/rhythm, Normal S1 S2, Edema (BLE) Capillary refill: <2 Seconds Gastrointestinal: Normal bowel sounds Musculoskeletal: No clubbing, No contractures Integumentary: No rashes, No breakdown Neurological: Normal speech, Normal tone <ChaparroDeepthi - Last Filed: 12/01/22 15:20> Assessment And Plan - Plan Assessment: Acute on chronic CHFunknown EF Chest pain rule out ACS PENELOPE versus CKD Anemia of chronic disease History of leukemia status post bone marrow transplant Plan: Acute on chronic CHFunknown EF Chest pain rule out ACS Has a known history of CHF, unknown EF, was taken off of his diuretic approximately 3 months ago by his doctors in [place] because his kidney function was Worsening. Increasing lower extremity edema of the last 2 to 3 weeks. Continue IV diuresis, obtain echocardiogram, cardiology consult. He is also been having Intermittent chest pain- dilaudid Reports normal stress test approximately 2 months ago he had a heart catheterization a few years ago without need for stent placement. Trend troponins 905/10.7/9.8 Monitor On telemetry. ECHO today with normal EF and mild tricuspid regurg Lexiscan nuclear stress test today-pending VQ revealed low probability of pulmonary embolism PENELOPE versus CKD Unknown renal function baseline although in the past patient did require dialysis during a hospitalization, he does have known CKD. He is going to attempt to Obtain previous labs/records from his PCP. Continue diuresis for CHF at this time. Renal ultrasound unremarkable Nephrology consult and agree with diuresis, recommend protein supplement, no NSAIDs Anemia of chronic disease Pancytopenia Hgb on admission 7.7, at 4 am 7.5, redraw 8.1 Platelets 127 this AM, redraw now No active bleeding, obtain additional labs. Transfuse to maintain hemoglobin greater than 7. History of leukemia status post bone marrow transplant Continue supportive care, outpatient follow-up. Febrile in patient with History of leukemia status post bone marrow transplant -cxr, covid, flu, Rsv, strep pending -UA neg from admission -absolute neutrophils 3.2 DVT PPX: Heparin subcu Code status: Full Discharge Plan: Home Plan to discharge in: 48 Hours Physician Review: Patient Assessed, Agree with Above Assessment and Plan Time Spent Managing PTS Care (In Minutes): 35 <Deepthi Mayfield - Last Filed: 12/01/22 15:20> Physician Review: Patient Assessed, Agree with Above Assessment and Plan <Benito Dawn - Last Filed: 12/01/22 19:34>
--- NOTE | 2022-12-01 15:49 | RAD REPORT ---
EXAM DESCRIPTION: RADChest Single View12/01/2022 3:11 pm CLINICAL HISTORY: fever COMPARISON: Chest Single View dated 11/29/2022 TECHNIQUE: Portable AP view of the chest. FINDINGS: Medial right basal or right lower lobe progressive airspace opacification. Linear opacity in the mid lung, may relate to atelectasis or effusion component along the right minor fissure. No p neumothorax or effusion. The cardiomediastinal contours are unremarkable. IMPRESSION: Progressive right basilar opacification, with possible trace component of effusion as ab ove. Underlying pneumonia should be considered.
[2022-12-01] MEDS ORDERED: NA CHLORIDE 0.9% 250 ML IV ONE (17:00)
[2022-12-01] MEDS ORDERED: CEFEPIME 2 GM in NA CHLORIDE 0.9% 100 ML IV SCH (17:00)
[2022-12-01] MEDS ORDERED: VANCOMYCIN 2 GM in NA CHLORIDE 0.9% 500 ML IVPB ONE (18:00)
[2022-12-01] MEDS: ATORVASTATIN 40 MG TAB PO SCH (20:03)
[2022-12-01] MEDS: DOXYCYCLINE 100 MG in NA CHLORIDE 0.9% 100 ML IVPB SCH ×2 (20:03→21:00)
[2022-12-01] MEDS: CEFTRIAXONE 1,000 MG in NA CHLORIDE 0.9% 50 ML IVPB SCH (21:08)
[2022-12-01 22:21] LABS: Specific Gravity 1.009 (1.005-1.030); Urine Bacteria None Seen /HPF (<20); Urine Bilirubin NEGATIVE (Negative); Urine Blood Negative (Negative); Urine Clarity Clear (Clear); Urine Color Colorless (Yellow); Urine Glucose NEGATIVE (Negative); Urine Mucus Slight /HPF (None Seen); Urine Protein NEGATIVE (Negative); Urine RBC <5 /HPF (None Seen); Urine Urobilinogen Normal (Normal)
[2022-12-01 22:31] LABS: UR MICROALBUMIN 1.3 mg/dL (< 1.9); UR PROTEIN 12.4 mg/dL (<11.9); Urine Protein/Creatinine Ratio 0.35 ratio (<0.15)
[2022-12-02] MEDS: ACETAMINOPHEN 500 MG TAB PO PRN ×4 (00:48→20:26)
[2022-12-02] MEDS: HYDROMORPHONE HCL 1 MG/ML INJ IV PRN ×6 (02:01→17:03)
[2022-12-02 04:19] LABS: Absolute Lymphocytes (CBC) 0.7 K/uL (0.7-4.9); Hematocrit 23.6 % (39.6-49.0); Lymphocytes % 12.9 % (15.3-44.8); MPV 7.1 fL (7.6-11.3); Platelets 139 thou/uL (152-406); RBC Red Blood Cell Count 2.51 M/uL (4.33-5.43)
[2022-12-02 04:52] LABS: Magnesium 2.1 mg/dL (1.6-2.4); Phosphorus 3.6 mg/dL (2.5-4.9); Potassium 4.3 mEq/L (3.5-5.1)
[2022-12-02] MEDS ORDERED: FUROSEMIDE 20 MG/ 2ML VIAL IV SCH (09:00)
[2022-12-02] MEDS: DOCUSATE NA 100 MG CAP PO SCH ×2 (09:16→20:26)
[2022-12-02] MEDS: PANTOPRAZOLE 40MG TABLET PO SCH ×2 (09:16→17:02)
[2022-12-02] MEDS: HEPARIN 5000 UNIT/ML 1 ML VIAL SQ SCH ×2 (09:16→20:20)
[2022-12-02] MEDS: AMIODARONE HCL 200 MG TAB PO SCH (09:16)
[2022-12-02] MEDS: ACYCLOVIR 400 MG TABLET PO SCH ×2 (09:17→20:26)
[2022-12-02] MEDS: DOXYCYCLINE 100 MG in NA CHLORIDE 0.9% 100 ML IVPB SCH ×2 (09:17→20:19)
[2022-12-02] MEDS: CEFTRIAXONE 1,000 MG in NA CHLORIDE 0.9% 50 ML IVPB SCH (09:17)
--- NOTE | 2022-12-02 10:44 | P.PN ---
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 He reports increasing swelling of the lower extremities for the past 2 to 3 weeks, he reports being previously diagnosed with congestive heart failure but being taken off his diuretic approximately 3 months ago as his kidney function was worsening. He is unsure of his baseline creatinine, renal function or hemoglobin. He also is reporting chest pain intermittently. He was evaluated in the emergency department his l abs are significant for hemoglobin 7.7 hematocrit 22.9 platelet count 140 creatinine 2.29 GFR 33 BNP 1302 initial high-sensitivity troponin 9.5 chest x- ray shows mild CHF negative for DVT bilateral lower extremities on ultrasound. He does have pitting edema of the lower extremities. ED provider wishes to admit patient for CHF exacerbation. 11/30: Patient is awake and oriented this morning, c/o left sided chest pain stating this usually happens when his blood levels are low. Hgb on admission 7.7 and at 4am 7.5. Will recheck. Nephrology consulted and recs received. Patient stated he was told to stop BP meds and lasix. BP this AM 108/57. Will continue to monitor. VQ revealed low probability of pulmonary embolism 12/01:Patient awake and oriented this AM, febrile OVN, ordering CXR, strep, covid, flu, and RSV. Monitoring neutrophils and ANC. UA neg from admission. ECHO today showing mild tricuspid regurgitation and EF of 60-65%. Patient denies SOB, ALBERTS, N/V/D, but is c/o left sided CP. Dilaudid is helping. Chest xray reveals pneumonia and does not meet sepsis criteria. will start doxycyclin and ceftriaxone. Due to prolonged QT, will not start azithromycin. 12/02: patient awake, PO intake better, patient ate subway last night. Still with low grade fever, Dialudid helping chest pain. started on antibiotics for pna seen on chest xray yesterday. Following blood culutres. On 3 LNC. BP dropped last night but is stable after 250 ml NS infusion. Patient denies ALBERTS, abdominal pain, palpitations, and N/V. <Deepthi Mayfield - Last Filed: 12/02/22 10:52> Date of Service: 12/02/22 <Benito Dawn - Last Filed: 12/02/22 17:58> Review of Systems General: Fever, Weakness Eyes: Unremarkable ENT: Unremarkable Respiratory: Cough Cardiovascular: Chest Pain Gastrointestinal: Unremarkable Genitourinary: Unremarkable Musculoskeletal: Unremarkable Integumentary: Unremarkable Neurological: Weakness <Deepthi Mayfield - Last Filed: 12/02/22 10:52> Physical Examination - Vital Signs Temperature: 100.6 F Blood Pressure: 91/56 Pulse: 86 Respirations: 15 Pulse Ox (%): 92 <Deepthi Mayfield - Last Filed: 12/02/22 10:52> Assessment And Plan - Plan Assessment: Acute on chronic CHFunknown EF Chest pain rule out ACS PENELOPE versus CKD Anemia of chronic disease History of leukemia status post bone marrow transplant Pneumonia Plan: Acute on chronic CHFunknown EF Chest pain rule out ACS Has a known history of CHF, unknown EF, was taken off of his diuretic approximately 3 months ago by his doctors in [place] because his kidney function was Worsening. Increasing lower extremity edema of the last 2 to 3 weeks. Continue IV diuresis, obtain echocardiogram, cardiology consult. He is also been having Intermittent chest pain- dilaudid Reports normal stress test approximately 2 months ago he had a heart catheterization a few years ago without need for stent placement. Trend troponins 905/10.7/9.8 Monitor On telemetry. ECHO today with normal EF and mild tricuspid regurg Lexiscan nuclear stress test today-pending VQ revealed low probability of pulmonary embolism PENELOPE versus CKD Unknown renal function baseline although in the past patient did require dialysis during a hospitalization, he does have known CKD. He is going to attempt to Obtain previous labs/records from his PCP. Continue diuresis for CHF at this time. Renal ultrasound unremarkable Nephrology consult and agree with diuresis, recommend protein supplement, no NSAIDs Anemia of chronic disease Pancytopenia Hgb on admission 7.7, 8.1- stable Platelets 139 this AM No active bleeding, obtain additional labs. Transfuse to maintain hemoglobin greater than 7. History of leukemia status post bone marrow transplant Continue supportive care, outpatient follow-up. Pneumonia Febrile in patient with History of leukemia status post bone marrow transplant -cxr, covid, flu, Rsv, strep negative -UA neg yesterday -CXR reveals basilar opacification underlying pneumonia -started Doxy and Rocephin (12/01) -absolute neutrophils 3.7 -WBC 5.1 DVT PPX: Heparin subcu Code status: Full Discharge Plan: Home Plan to discharge in: 48 Hours Discharge Plan: Home Plan to discharge in: Greater than 2 days Physician Review: Patient Assessed, Agree with Above Assessment and Plan Time Spent Managing PTS Care (In Minutes): 35 <Deepthi Mayfield - Last Filed: 12/02/22 10:52> Physician Review: Patient Assessed, Agree with Above Assessment and Plan Physician Review Additional Text: He was slightly hypotensive overnight, which was responsive to IV fluids. Will use caution with IV fluids given congestive heart failure history. Will utilize IV albumin per nephrology recommendations. Will hold amiodarone and lower hydromorphone dose given soft blood pressures. Benito Dawn M.D. <Benito Dawn - Last Filed: 12/02/22 17:58>
[2022-12-02] MEDS ORDERED: ALBUMIN HUMAN 25% 100 ML IV ONE (14:32)
[2022-12-02] MEDS ORDERED: NA CHLORIDE 0.9% 250 ML IV ONE (14:33)
--- NOTE | 2022-12-02 14:37 | P.PN ---
(S) Pt has had some low grade temps and BP has been low, IV lasix held, pt reports some chest pain, no acute dyspnea, no coughing spells (O) Vitals reviewed in the EMR General: In no apparent distress, Oriented x3 HEENT: Atraumatic, sclera anicteric, on O2 Neck: Supple Respiratory: Mildly diminished, no rales or rhonchi Cardiovascular: Regular rate/rhythm, Edema mild/improved distally Gastrointestinal: Soft and benign, Non-distended Musculoskeletal: No clubbing, No contractures Integumentary: No rashes, No cyanosis Neurological: Normal speech, awake, alert, non focal Laboratory Data (last 24 hrs) Reviewed in the EMR Imagings Data: [id number] EXAM DESCRIPTION: US - Renal Ultrasound-Complete - 11/29/2022 11:32 pm CLINICAL HISTORY: Acute renal insufficiency. Chronic renal insufficiency COMPARISON: None FINDINGS: The right kidney measures 12 cm with a normal echotexture. The left kidney measures 12 cm with a normal echotexture. Hydronephrosis is not seen. No gross abnormality of bladder IMPRESSION: Unremarkable renal ultrasound. EXAM DESCRIPTION: RAD - Chest Single View - 11/29/2022 6:46 pm CLINICAL HISTORY: CHEST PAIN Chest pain. COMPARISON: No comparisons FINDINGS: Portable technique limits examination quality. Moderate bilateral pulmonary opacities are present which may represent pulmonary edema or pneumonia. The heart is moderately enlarged in size. No displaced fractures. IMPRESSION: Findings could indicate mild CHF. Infection/ pneumonia is a possibility also. Conclusions/Impression: Stage I PENELOPE possibly, unknown exact baseline, presumed underlying CKD Stage III unspecified. Prior ARF episode last year briefly requiring [employer] -Renal function stable thus far, monitor closely however for any worsening as BP has been low. UA bland on admission Dyspnea unspecified LE Edema improved -Holding IV lasix due to hypotension -Echocardiogram report reviewed, preserved EF -BP low, no DAYAMI inhibitors at this time Hypotension, other -S/p IVF bolus overnight, will dose IV Albumin 25% 100 ml IV once. 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
[2022-12-02] MEDS ORDERED: VANCOMYCIN 1.5 GM in NA CHLORIDE 0.9% 500 ML IVPB SCH (18:00)
[2022-12-02] MEDS: HYDROMORPHONE HCL 0.5 MG/0.5 ML INJ IV PRN ×2 (20:25→23:18)
[2022-12-02] MEDS: ATORVASTATIN 40 MG TAB PO SCH (20:26)
[2022-12-03] MEDS: HYDROMORPHONE HCL 0.5 MG/0.5 ML INJ IV PRN ×5 (02:30→23:25)
--- NOTE | 2022-12-03 08:27 | RAD REPORT ---
EXAM DESCRIPTION: RADChest Single View12/03/2022 8:13 am CLINICAL HISTORY: follow-up PNA COMPARISON: Chest Single View dated 12/01/2022; Chest Single View dated 11/29/2022 TECHNIQUE: Portable AP view of the chest. FINDINGS: Decreased inspiratory effort and right lower lung opacification, stable. No pneumothorax or effusion. The cardiomediastinal contours are unremarkable. IMPRESSION: Stable right lower lung airspace opacification, may reflect atelectasis or pneumonia.
[2022-12-03] MEDS: HEPARIN 5000 UNIT/ML 1 ML VIAL SQ SCH ×2 (09:24→20:24)
[2022-12-03] MEDS: PANTOPRAZOLE 40MG TABLET PO SCH ×2 (09:24→17:56)
[2022-12-03] MEDS: CEFTRIAXONE 1,000 MG in NA CHLORIDE 0.9% 50 ML IVPB SCH (09:24)
[2022-12-03] MEDS: DOCUSATE NA 100 MG CAP PO SCH ×2 (09:24→20:24)
[2022-12-03 09:45] LABS: Absolute Lymphocytes (CBC) 0.9 K/uL (0.7-4.9); Hematocrit 20.8 % (39.6-49.0); Lymphocytes % 27.1 % (15.3-44.8); MCV 93.1 fL (80-100); MPV 6.5 fL (7.6-11.3); Platelets 116 thou/uL (152-406); RBC Red Blood Cell Count 2.23 M/uL (4.33-5.43)
[2022-12-03 09:59] LABS: Magnesium 2.3 mg/dL (1.6-2.4); Potassium 3.8 mEq/L (3.5-5.1)
[2022-12-03] MEDS: DOXYCYCLINE 100 MG in NA CHLORIDE 0.9% 100 ML IVPB SCH ×2 (11:08→20:23)
[2022-12-03] MEDS: ACYCLOVIR 400 MG TABLET PO SCH ×2 (11:08→20:24)
--- NOTE | 2022-12-03 15:02 | P.PN ---
(S) Pt reports feeling a bit better, seen sitting in chair, off O2 (O) Vitals reviewed in the EMR General: In no apparent distress, Oriented x3 HEENT: Atraumatic, sclera anicteric, off O2 Neck: Supple Respiratory: Mildly diminished, no rales or rhonchi Cardiovascular: Regular rate/rhythm, Edema mild/improved distally Gastrointestinal: Soft and benign, Non-distended Musculoskeletal: No clubbing, No contractures Integumentary: No rashes, No cyanosis Neurological: Normal speech, awake, alert, non focal Laboratory Data (last 24 hrs) Reviewed in the EMR Imagings Data: [id number] EXAM DESCRIPTION: US - Renal Ultrasound-Complete - 11/29/2022 11:32 pm CLINICAL HISTORY: Acute renal insufficiency. Chronic renal insufficiency COMPARISON: None FINDINGS: The right kidney measures 12 cm with a normal echotexture. The left kidney measures 12 cm with a normal echotexture. Hydronephrosis is not seen. No gross abnormality of bladder IMPRESSION: Unremarkable renal ultrasound. EXAM DESCRIPTION: RAD - Chest Single View - 11/29/2022 6:46 pm CLINICAL HISTORY: CHEST PAIN Chest pain. COMPARISON: No comparisons FINDINGS: Portable technique limits examination quality. Moderate bilateral pulmonary opacities are present which may represent pulmonary edema or pneumonia. The heart is moderately enlarged in size. No displaced fractures. IMPRESSION: Findings could indicate mild CHF. Infection/ pneumonia is a po ssibility also. Conclusions/Impression: Stage I PENELOPE possibly, unknown exact baseline, presumed underlying CKD Stage III unspecified. Prior ARF episode last year briefly requiring [employer] -Renal function improved some with Cr level downward trending UA bland on admission Dyspnea unspecified LE Edema improved -Held yesterday IV lasix due to hypotension -Echocardiogram report reviewed, preserved EF -BP low, no DAYAMI inhibitors indicated at this time Hypotension, other -Resolved after stopping diuresing and bolus of NS/Albumin Anemia in chronic illness, other Hx leukemia 06/2021 sp Bone Marrow Tx 04/2022 -H/H remains low, will defer management/transfusions to IM Patricio Harper MD, NEELAM
--- NOTE | 2022-12-03 15:13 | P.PN ---
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 He reports increasing swelling of the lower extremities for the past 2 to 3 weeks, he reports being previously diagnosed with congestive heart failure but being taken off his diuretic approximately 3 months ago as his kidney function was worsening. He is unsure of his baseline creatinine, renal function or hemoglobin. He also is reporting chest pain intermittently. He was evaluated in the emergency department his labs are significant for hemoglobin 7.7 hematocrit 22.9 platelet count 140 creatinine 2.29 GFR 33 BNP 1302 initial high-sensitivity troponin 9.5 chest x- ray shows mild CHF negative for DVT bilateral lower extremities on ultrasound. He does have pitting edema of the lower extremities. ED provider wishes to admit patient for CHF exacerbation. 11/30: Patient is awake and oriented this morning, c/o left sided chest pain stating this usually happens when his blood levels are low. Hgb on admission 7.7 and at 4am 7.5. Will recheck. Nephrology consulted and recs received. Patient stated he was told to stop BP meds and lasix. BP this AM 108/57. Will continue to monitor. VQ revealed low probability of pulmonary embolism 12/01:Patient awake and oriented this AM, febrile OVN, ordering CXR, strep, covid, flu, and RSV. Monitoring neutrophils and ANC. UA neg from admission. ECHO today showing mild tricuspid regurgitation and EF of 60-65%. Patient denies SOB, ALBERTS, N/V/D, but is c/o left sided CP. Dilaudid is helping. Chest xray reveals pneumonia and does not meet sepsis criteria. will start doxycyclin and ceftriaxone. Due to prolonged QT, will not start azithromycin. 12/02: patient awake, PO intake better, patient ate subway last night. Still with low grade fever, Dialudid helping chest pain. started on antibiotics for pna seen on chest xray yesterday. Following blood culutres. On 3 LNC. BP dropped last night but is stable after 250 ml NS infusion. Patient denies ALBERTS, abdominal pain, palpitations, and N/V. 12/03: Christopher, sleeping but aroused easily, conversing well. requesting d/c but still on 4 LNC. Will talk to respiratory to help wean the Oxygen needs. He stated he will try to ambulate with help today. He reports pain has eased some, does not have a good appetite yet and no BM. Watching H/H and absolute leukocytes in AM labs. He denies fever, chills, SOB, ALBERTS, dizziness, and abdominal pain. . <Deepthi Mayfield - Last Filed: 12/03/22 16:26> Date of Service: 12/03/22 <Benito Dawn - Last Filed: 12/03/22 18:11> Review of Systems 10-point ROS is otherwise unremarkable <Deepthi Mayfield - Last Filed: 12/03/22 16:26> Physical Examination - Vital Signs Temperature: 99.1 F Blood Pressure: 115/64 Pulse: 72 Respirations: 20 Pulse Ox (%): 91 <Deepthi Mayfield - Last Filed: 12/03/22 16:26> Assessment And Plan - Plan Physical Exam General: Sleeping but arouses, In no apparent distress, Oriented x3, Other (uncomfortable) HEENT: Atraumatic, Normocephalic, PERRLA Neck: Supple, 2+ carotid pulse no bruit, JVD not distended Respiratory: Clear to auscultation bilaterally, Normal air movement Cardiovascular: Regular rate/rhythm, Normal S1 S2, Edema (BLE) Capillary refill: <2 Seconds Gastrointestinal: Normal bowel sounds Musculoskeletal: No clubbing, No contractures Integumentary: No rashes, No breakdown Neurological: Normal speech, Normal tone Assessment: Acute on chronic CHFunknown EF Chest pain rule out ACS PENELOPE versus CKD Anemia of chronic disease History of leukemia status post bone marrow transplant Pneumonia Plan: Acute on chronic CHFunknown EF Chest pain rule out ACS Has a known history of CHF, unknown EF, was taken off of his diuretic approximately 3 months ago by his doctors in [place] because his kidney function was Worsening. Increasing lower extremity edema of the last 2 to 3 weeks. Continue IV diuresis, obtain echocardiogram, cardiology consult. He is also been having Intermittent chest pain- dilaudid Reports normal stress test approximately 2 months ago he had a heart ca theterization a few years ago without need for stent placement. Trend troponins 905/10.7/9.8 Monitor On telemetry. ECHO today with normal EF and mild tricuspid regurg Lexiscan nuclear stress test today-pending VQ revealed low probability of pulmonary embolism PENELOPE versus CKD Unknown renal function baseline although in the past patient did require dialysis during a hospitalization, he does have known CKD. He is going to attempt to Obtain previous labs/records from his PCP. hold lasix for hypotension Renal ultrasound unremarkable Nephrology consult and agree with diuresis (hold), recommend protein supplement, no NSAIDs creatinine 1.67 Anemia of chronic disease Pancytopenia Hgb on admission 7.7, today 7.2 Platelets 139 this AM No active bleeding, obtain additional labs. Transfuse to maintain hemoglobin greater than 7. History of leukemia status post bone marrow transplant Continue supportive care, outpatient follow-up. Pneumonia Febrile in patient with History of leukemia status post bone marrow transplant -cxr, covid, flu, Rsv, strep negative -UA neg yesterday -CXR reveals basilar opacification underlying pneumonia -started Doxy and Rocephin (12/01) -absolute neutrophils 1.7 today (12/03) -WBC 3.8 DVT PPX: Heparin subcu Code status: Full Discharge Plan: Home Plan to discharge in: 48 Hours Discharge Plan: Home Plan to discharge in: 24 Hours Physician Review: Patient Assessed, Agree with Above Assessment and Plan Time Spent Managing PTS Care (In Minutes): 35 <Deepthi Mayfield - Last Filed: 12/03/22 16:26> Physician Review: Patient Assessed, Agree with Above Assessment and Plan Physician Review Additional Text: I personally saw and evaluated him on rounds this morning. His blood pressure is much improved. He appears to be doing better clinically, and is requesting to be discharged home. However, he remains on 3 L nasal cannula. Repeat chest x-ray was requested. We will consult Pulmonology for recommendations regarding hypoxia. Benito Dawn MD <Benito Dawn - Last Filed: 12/03/22 18:11>
[2022-12-03] MEDS: ATORVASTATIN 40 MG TAB PO SCH (20:24)
[2022-12-03 20:25] LABS: Hematocrit 21.5 % (39.6-49.0)
[2022-12-03] MEDS ORDERED: NA CHLORIDE 0.9% 100 ML ONE (20:28)
[2022-12-03] MEDS ORDERED: DOXYCYCLINE HYCLATE 100MG INJ ONE (20:29)
[2022-12-04] MEDS: HYDROMORPHONE HCL 0.5 MG/0.5 ML INJ IV PRN ×3 (02:35→11:01)
[2022-12-04 04:31] LABS: Absolute Lymphocytes (CBC) 1.3 K/uL (0.7-4.9); Hematocrit 19.8 % (39.6-49.0); MCV 92.5 fL (80-100); MPV 7.1 fL (7.6-11.3); Platelets 139 thou/uL (152-406); RBC Red Blood Cell Count 2.14 M/uL (4.33-5.43)
[2022-12-04 04:35] LABS: Lymphocytes % 37.4 % (15.3-44.8)
[2022-12-04 04:42] LABS: Magnesium 2.2 mg/dL (1.6-2.4); Potassium 3.4 mEq/L (3.5-5.1)
[2022-12-04] MEDS ORDERED: FUROSEMIDE 20 MG/ 2ML VIAL IV ONE (06:30)
[2022-12-04] MEDS ORDERED: NA CHLORIDE 0.9% 250 ML IV SCH (07:00)
[2022-12-04] MEDS: PANTOPRAZOLE 40MG TABLET PO SCH (07:30)
--- NOTE | 2022-12-04 07:51 | RAD REPORT ---
EXAM DESCRIPTION: CT - Thorax Wo Con - 12/04/2022 7:29 am CLINICAL HISTORY: sob COMPARISON: December 03, 2022 TECHNIQUE: Computed axial tomography of the chest was obtained. Contrast was not requested. All CT scans are performed using dose optimization technique as appropriate and may include automated exposure control or mA/KV adjustment according to patient size. FINDINGS: The evaluation of mediastinum, jakob and vessels is limited secondary to lack of IV contras t administration. 4 centimeter right lower lobe opacity abuts pleura. Additional area of atelectasis right lower lobe. Tiny pleural effusions. No mediastinal or hilar lymphadenopathy is seen. No pericardial effusion. Cardiomegaly. Bovine aorta IMPRESSION: 4 centimeter right lower lobe opacity most likely rounded atelectasis. Follow-up chest f ilm in 1 month recommended to assess stability/resolution
[2022-12-04 08:36] VITALS: O2SAT 91
[2022-12-04] MEDS ORDERED: CEFTRIAXONE 1000 MG/VIAL ONE ×2 (09:59→10:06)
[2022-12-04] MEDS ORDERED: NA CHLORIDE 0.9% 0 ML ONE (10:00)
[2022-12-04] MEDS: ACYCLOVIR 400 MG TABLET PO SCH (10:13)
[2022-12-04] MEDS: CEFTRIAXONE 1,000 MG in NA CHLORIDE 0.9% 50 ML IVPB SCH (10:13)
[2022-12-04] MEDS: DOCUSATE NA 100 MG CAP PO SCH (10:13)
[2022-12-04] MEDS: HEPARIN 5000 UNIT/ML 1 ML VIAL SQ SCH (10:19)
[2022-12-04] MEDS: DOXYCYCLINE 100 MG in NA CHLORIDE 0.9% 100 ML IVPB SCH (10:21)
[2022-12-04] MEDS ORDERED: NA CHLORIDE 0.9% 50 ML ONE (10:29)
[2022-12-04 11:54] VITALS: BP 131/70; TEMP 97.1
--- NOTE | 2022-12-04 15:07 | P.DS ---
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 Mr. Maxwell, has been previously diagnosed with congestive heart failure and CKD was taking off Lasix 3 months ago due to worsening kidney function. He also reports intermittent chest pain which usually correlates with a low hemoglobin. During this admission nephrology was consulted for recommendations during diuresis. He was on 3 to 4 L nasal cannula at the start of this admission. He became febrile requiring extensive work-up involving blood cultures, COVID/flu/RSV/strep testing, and a chest x-ray. All tests were negative except for the chest x-ray which revealed pneumonia. He has tolerated and improved with IV antibiotics. Due to continued hypoxia a CT chest was ordered proving to be negative for PE. H&H remained stable but was monitored thoroughly throughout this admission. He is now on RA sating 95%, ambulating well, and tolerating PO diet On 12/04/2022, Mr. Conroy was seen on morning rounds and deemed medically stable for discharge. Mr. Dietz was discharged with instructions to schedule follow-up appointments with PCP, oncology, cardiology. He is from [place] and will need follow-up care in that area. Provided prescriptions for doxycycline and Lasix. The patient and family members were given the opportunity to ask questions and reported no further questions. Furthermore, all questions were answered to the best of my ability. A copy of this discharge summary will be sent to the above providers to facilitate continuity of care. Today, I personally spent 55 minutes with Mr. Conroy, of which greater than 50% of the time was spent in patient education, counseling, and coordination of care as described above. General: Sleeping but arouses, In no apparent distress, Oriented x3, Other (uncomfortable) HEENT: Atraumatic, Normocephalic, PERRLA Neck: Supple, 2+ carotid pulse no bruit, JVD not distended Respiratory: Clear to auscultation bilaterally, Normal air movement Cardiovascular: Regular rate/rhythm, Normal S1 S2, Edema (BLE) Capillary refill: <2 Seconds Gastrointestinal: Normal bowel sounds Musculoskeletal: No clubbing, No contractures Integumentary: No rashes, No breakdown Neurological: Normal speech, Normal tone Vital Signs/Physical Exam: Temp Pulse Resp BP Pulse Ox 97.1 F 72 16 131/70 94 12/04/22 11:53 12/04/22 11:53 12/04/22 11:53 12/04/22 11:53 12/04/22 11:53 Laboratory Data at Discharge: WBC 3.40 thou/uL (4.3-10.9) L 12/04/22 04:18 Hgb 7.6 g/dL (13.6-17.9) L D 12/04/22 13:41 Hct 19.8 % (39.6-49.0) L 12/04/22 04:18 Plt Count 139 thou/uL (152-406) L 12/04/22 04:18 Sodium 141 mEq/L (136-145) 12/04/22 04:18 Potassium 3.4 mEq/L (3.5-5.1) L 12/04/22 04:18 BUN 16 mg/dL (7-18) 12/04/22 04:18 Creatinine 1.52 mg/dL (0.70-1.30) H 12/04/22 04:18 Glucose 86 mg/dL (74-106) 12/04/22 04:18 Uric Acid 9.8 mg/dL (3.5-7.2) H 12/01/22 05:49 Phosphorus 3.0 mg/dL (2.5-4.9) 12/04/22 04:18 Magnesium 2.2 mg/dL (1.6-2.4) 12/04/22 04:18 Total Bilirubin 0.5 mg/dL (0.2-1.0) 11/29/22 18:53 AST 12 U/L (15-37) L 11/29/22 18:53 ALT 14 U/L (16-61) L 11/29/22 18:53 Alkaline Phosphatase 88 U/L (45-117) 11/29/22 18:53 Triglycerides 228 mg/dL (<150) H 11/30/22 04:20 Cholesterol 132 mg/dL (<200) 11/30/22 04:20 HDL Cholesterol 35 mg/dL (40-60) L 11/30/22 04:20 Cholesterol/HDL Ratio 3.77 11/30/22 04:20 Home Medications: Acyclovir 1 tab PO BID 11/30/22 Atorvastatin Calcium 1 tab PO BEDTIME 11/30/22 Cyanocobalamin [Vitamin B-12*] 1 tab PO DAILY 11/30/22 Melatonin 1 tab PO BEDTIME PRN 11/30/22 Mirtazapine 1 tab PO BEDTIME 11/30/22 Pantoprazole Sodium 1 tab PO DAILY 11/30/22 Sirolimus 3 tab PO DAILY 11/30/22 Smz./Tmp. [Bactrim Ds 800 MG/160 MG*] 1 tab PO SEECOM 11/30/22 Trazodone [Desyrel*] 1 tab PO BEDTIME 11/30/22 carvediloL [Carvedilol] 1 tab PO BID 11/30/22 Atorvastatin Calcium [Lipitor] 40 mg PO BEDTIME tab 12/04/22 Cefdinir [Cefdinir*] 300 mg PO BID #10 cap 12/04/22 Doxycycline Hyclate 100 mg PO BID 7 Days #14 tab 12/04/22 Furosemide 20 mg PO DAILY #30 tab 12/04/22 New Medications: Cefdinir [Cefdinir*] 300 mg PO BID #10 cap Doxycycline Hyclate 100 mg PO BID 7 Days #14 tab Furosemide 20 mg PO DAILY #30 tab Physician Discharge Instructions: Follow up with PCP, nephrology, and oncology within one week of discharge to monitor H/H and pneumonia status 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 Heart healthy diet Ambulatation with no restrictions Return to the ED if symptoms return Medication change: Lasix 20 mg PO Daily -Please call Dr. Mercado at [phone] if any questions regarding hospital stay -Please call nursing station at [phone] if any nursing or medication questions -Return to the emergency room if symptoms worsen Diet: AHA Followup: OOT,OOT [Primary Care Provider] - Time spent managing pt's care (in minutes): 55
--- NOTE | 2022-12-04 21:36 | P.PN ---
Date of Service: 12/04/22 Vital Signs Temp Pulse Resp BP Pulse Ox 97.1 F 72 16 131/70 94 12/04/22 11:53 12/04/22 11:53 12/04/22 11:53 12/04/22 11:53 12/04/22 11:53 Microbiology Results 11/29/22 18:15 Nasopharnyx Influenza Type A Antigen Screen - Final 11/29/22 18:15 Nasopharnyx Influenza Type B Antigen Screen - Final Assessment/ Plan: Nephrology No dyspnea No chest pain Feeling better No acute events overnight Vitals, medications, blood work and imaging reviewed in the chart. General: In no apparent distress, Oriented x3 HEENT: Atraumatic Neck: Supple Respiratory: Clear to auscultation bilaterally Cardiovascular: Regular rate/rhythm, Edema Gastrointestinal: Soft and benign, Non-distended Musculoskeletal: No clubbing, No contractures Integumentary: No rashes, No cyanosis Neurological: Normal speech Laboratory Data (last 24 hrs) 11/29/22 11/29/22 18:53 18:53 WBC 4.40 Hgb 7.7 L Hct 22.9 L Plt Count 140 L Sodium 142 Potassium 3.3 L BUN 15 Creatinine 2.29 H Glucose 101 Magnesium 1.9 Total Bilirubin 0.5 AST 12 L ALT 14 L Alkaline Phosphatase 88 Imagings Data: [id number] EXAM DESCRIPTION: US - Renal Ultrasound-Complete - 11/29/2022 11:32 pm CLINICAL HISTORY: Acute renal insufficiency. Chronic renal insufficiency COMPARISON: None FINDINGS: The right kidney measures 12 cm with a normal echotexture. The left kidney measures 12 cm with a normal echotexture. Hydronephrosis is not seen. No gross abnormality of bladder IMPRESSION: Unremarkable renal ultrasound. [id number] EXAM DESCRIPTION: US - Extrem Venous W Compress Salo - 11/29/2022 7:25 pm CLINICAL HISTORY: SWELLING Bilateral leg edema and swelling. COMPARISON: No comparisons TECHNIQUE: Real-time sonographic interrogation of the left and right lower extremity deep venous systems was performed. FINDINGS: Normal compressibility, flow augmentation, phasic flow and spontaneous flow is identified in both the left and right lower extremity deep venous systems. IMPRESSION: No sonographic evidence of left or right lower extremity deep venous thrombosis. [id number] EXAM DESCRIPTION: RAD - Chest Single View - 11/29/2022 6:46 pm CLINICAL HISTORY: CHEST PAIN Chest pain. COMPARISON: No comparisons FINDINGS: Portable technique limits examination quality. Moderate bilateral pulmonary opacities are present which may represent pulmonary edema or pneumonia. The heart is moderately enlarged in size. No displaced fractures. IMPRESSION: Findings could indicate mild CHF. Infection/ pneumonia is a possibility also. 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
== END 2022-12-04 16:50 | disposition home or self-care (01) | DRG 291 ==
LOC: ER 17:50 → 2ND 20:14
PROVIDERS: ADMIT Internal Medicine; ATTEND Hospitalist
DX: I50.33 Acute on chronic diastolic (congestive) heart failure (principal); J18.9 Pneumonia, unspecified organism; Z94.81 Bone marrow transplant status; D61.818 Other pancytopenia; N17.9 Acute kidney failure, unspecified; N18.32 Chronic kidney disease, stage 3b; D63.1 Anemia in chronic kidney disease; D63.8 Anemia in other chronic diseases classified elsewhere; E87.6 Hypokalemia; I95.9 Hypotension, unspecified; E88.09 Other disorders of plasma-protein metabolism, not elsewhere classified; Z90.49 Acquired absence of other specified parts of digestive tract; Z20.822 Contact with and (suspected) exposure to COVID-19
CPT/HCPCS: 36415; 71045; 71250; 76770; 78582; 80048; 80061; 80076; 81001; 81003; 82043; 82570; 82607; 82728; 83540; 83605; 83735; 83880; 84100; 84156; 84439; 84443; 84466; 84484; 84550; 85014; 85018; 85025; 85379; 86850; 86900; 86901; 87040; 87635; 87804; 87807; 93005; 93306; 93970; 96374; 96375; 99285; A9540; J0692; J0696; J1170; J1644; J1940; J2405; J7040; J7050; P9047